=== PATIENT | male | born 1940 | race Caucasian/White ===

== ENCOUNTER 2017-11-02 03:57 | Inpatient (IN) | payer MEDICARE, MEDICAID ==
[2017-11-02] VITALS (7 sets, daily range): BP systolic 108–141; BP diastolic 82–96
[~2017-11-02] VITALS: Ht 175.3 cm; Wt 101.2 kg
--- NOTE | ~2017-11-02 | EKG ---
[place] [address] ELECTROCARDIOGRAM REPORT Name: BRADY OCHOA SR Room: [address] ADM IN [facility]#: [id number] Admission: 11/02/17 Attend Phys: Dino Pires, Discharge: Date of : 44 Report #: [id number] THIS REPORT FOR: //name// [facility] Test Date: 2017-11-03 Test Time: 00:06:58 Pat Name: BRADY OCHOA Department: Room: [address] Gender: M Virtual Reality Specialist: EVE Green : 1940 Requested By: Dino Pires Order Number: [id number] Reading MD: Measurements Intervals [place] Rate: 96 P: 106 MS: 237 QRS: 80 QRSD: 118 T: -1 QT: 367 QTc: 464 Interpretive Statements Sinus rhythm Prolonged MS interval Incomplete right bundle branch block Inferior infarct, recent ST elevation, consider anterolateral injury Compared to ECG 11/02/2017 04:03:46 First degree AV block now present Incomplete right bundle-branch block now present Myocardial infarct finding still present ST (T wave) deviation still present [email or web address] By: 0006 Epiphany Ep[place], [place] /INES
--- NOTE | ~2017-11-02 | EKG ---
[place] [address] ELECTROCARDIOGRAM REPORT Name: BRADY OCHOA Room: [address] ADM IN [facility].#: [id number] Admission: 11/02/17 Attend Phys: Dino Pires, Discharge: Date of : 44 Report #: [id number] THIS REPORT FOR: //name// [facility] Test Date: 2017-11-03 Test Time: 00:06:58 Pat Name: BRADY OCHOA Department: Room: [address] Gender: M Environmental Services Manager: EVE Green : 1940 Requested By: Wu Reinoso Order Number: [id number] Reading MD: Measurements Intervals [place] Rate: 96 P: 106 FL: 237 QRS: 80 QRSD: 118 T: -1 QT: 367 QTc: 464 Interpretive Statements Sinus rhythm Prolonged FL interval Incomplete right bundle branch block Inferior infarct, recent ST elevation, consider anterolateral injury Compared to ECG 11/02/2017 04:03:46 First degree AV block now present Incomplete right bundle-branch block now present Myocardial infarct finding still present ST (T wave) deviation still present [email or web address] By: 0006 Epiphany Epiph[place], [place] /INES
[~2017-11-02 03:57] MED LIST: ACETAMINOPHEN RECTAL; ACETAMINOPHEN-1 EAC1 PO; ADVAIR HFA115 MCG/21 INH; AFRIN15 ML NASAL; AFRIN15 ML NS; AMITRIPTYLINE H25 M2; AMITRIPTYLINE H25 M2 PO; ASPIR 8181 MG PO; ASPIRIN325 PO; ATORVASTATIN CA40 MG PER TUBE; ATORVASTATIN CA40 MG PO; AZITHROMYCIN 2250 MG PO; CARVEDILOL6.25 MG PO; CENTRUM SILVER1 EAC2 PO; CIALIS5 MG PO; CLARITIN10 MG; CLARITIN10 MG PO; COLACE100 MG PO; CYCLOBENZAPRINE5 MG PO; DUONEB 2.5-0.5 M3 ML INH; ENOXAPARIN120 MG/0.1 SUBQ; FERREX 150 PLU1 EAC1 PO; FLAGYL500 MG; FLEXERIL PO; FLONASE 0.05%50 MCG NASAL; GLUCOPHAGE1000 MG PO; HYDROCHLOROTHIA25 M2 PO; HYDROCODONE-AP1 EAC6 PO; INCRUSE ELLI62.5 MCG IH; KETOCONAZOLE60 GM; KETOCONAZOLE60 GM TOP; KLOR-CON 1010 MEQ PO; LASIX 20 MG TAB20 MG PO; LASIX 40 MG TAB40 M2 PO; LEVAQUIN 500 M500 M2 IVPB; LIDODERM 5%1 PATC1 TOP; LIDODERM 5%1 PATC1 TRANSDERM; LIORESAL 10 MG10 MG PO; LISINOPRIL2.5 MG PO; LISINOPRIL20 MG PO; MAGIC MOUTH WASH PO; MEDROLDOSEPACK PO; METFORMIN HCL500 MG PO; METROGEL55 GM TOP; METROGEL60 GM TOP; MILK OF MA2400 MG/10 PO; NEXIUM40 MG PO; NITROGLYCERIN0.4 MG SUBLING; NORCO 5-325 TA1 EACH PO; PLAVIX 75 MG TA75 M1 PO; PREDNISONE 20 M20 M1 PO; PRINIVIL10 MG PO; PROTONIX40 M1 PO; RANITIDINE 150150 M1 PO; ROCEPHIN 11 GM/1001 IV; SINGULAIR 10 MG10 M1 PO; SORINE 80 MG TA80 M1 PO; SPIRIVA INH; SYMBICORT160 MCG/4. INH; SYMBICORT160 MCG/4. PO; TYLENOL325 MG PO; VENTOLIN HFA 1818 GM INH; VOLTAREN GEL 1100 G1 TOP; VOLTAREN GEL 1100 G2 TOP; WELLBUTRIN 100100 MG PO; WELLBUTRIN SR150 MG PO; XARELTO20 MG PO; ZANTAC 150MG T150 MG; ZANTAC 150MG T150 MG PO; ZOLOFT50 M1 PO; ZOLOFT50 MG PO; ZPAK PO; [UNRECOGNIZED DRUG - REMARK] PO
[2017-11-02 04:34] LABS: HEMATOCRIT 40.5 % (42.0-52.0); MCHC 32.2 g/dL (28.0-37.0); MPV 8.3 fl. (7.2-11.1); NUCLEATED RBCS 0 /100WBC; PLATELET COUNT* 243 thou/uL (150-400); RBC 4.82 mil/uL (4.50-6.00); WBC 11.9 thou/uL (4.0-11.0)
--- NOTE | 2017-11-02 04:49 | NUR ---
BLOOD CULTURES DRAWN
[2017-11-02 04:51] LABS: INR 1.1; PROTIME 10.9 Seconds (9.20-11.50)
[2017-11-02 04:55] LABS: ALBUMIN 3.4 g/dL (3.4-5.0); ALKALINE PHOSPHATASE 116 U/L (46-116); ANION GAP 14 mmol/L (7-16); BUN 38 mg/dL (7-18); CALCIUM 9.2 mg/dL (8.5-10.1); CHLORIDE 96 mmol/L (98-107); CO2 26 mmol/L (21-32); CREATININE 2.1 mg/dL (0.6-1.3); GLUCOSE 305 mg/dL (70-99); NT-PRO BRAIN NAT PEPTIDE 3327 pg/mL (<300); POTASSIUM 4.7 mmol/L (3.5-5.1); SGOT 36 U/L (15-37); SGPT 72 U/L (30-65); SODIUM 136 mmol/L (136-145); TOTAL BILIRUBIN 0.5 mg/dL (<0.1-1.0); TOTAL PROTEIN 7.2 g/dL (6.4-8.2); TROPONIN-I LEVEL <0.06 ng/mL (<0.06)
[2017-11-02 05:09] LABS: BE -2.6 mmol/L (-2 to +3); HCO3 20.8 mmol/L (22.0-26.0); PCO2 32.1 mmHg (35.0-45.0); PO2 95.1 mmHg (75.0-100.0); pH 7.429 (7.340-7.450)
[2017-11-02 05:49] LABS: ABSOLUTE LYMPHOCYTES 1.1 thou/uL (0.8-5.3); ABSOLUTE MONOCYTES 0.4 thou/uL (0.0-1.2); ABSOLUTE NEUTROPHILS 10.5 thou/uL (1.6-8.1); ANISOCYTOSIS 2+; ATYPICAL LYMPHS 1 %; MACROCYTES 1+; OVALOCYTES 1+; PLATELET ESTIMATE ADEQUATE; POLYCHROMASIA 1+
--- NOTE | 2017-11-02 11:39 | EKG ---
[place] [address] ELECTROCARDIOGRAM REPORT Name: BRADY OCHOA Room: [address] ADM IN [facility]#: [id number] Admission: 11/02/17 Attend Phys: Dino Pires, Discharge: Date of : 44 Report #: [id number] THIS REPORT FOR: //name// [facility] ED Test Date: 2017-11-01 Test Time: 10:09:24 Pat Name: BRADY OCHOA Department: Room: [facility] Gender: M Reservationist: MS : 1940 Requested By: Gonzalez Vasquez Order Number: [id number] MD: Lan Stout Measurements Intervals [place] Rate: 111 P: AL: QRS: 66 QRSD: 102 T: 34 QT: 322 QTc: 438 Interpretive Statements nsr 1 avb Low voltage, precordial leads RSR' in V1 or V2, right VCD or RVH ST elevation, consider inferior injury Compared to ECG 09/26/2017 08:31:24 RSR' in V1 or V2 now present ST (T wave) deviation now present Myocardial infarct finding now present Sinus rhythm no longer present Atrial premature complex(es) no longer present Electronically Signed On 11-02-2017 11:39:23 PIPING SUPERVISOR by Lan Stout [email or web address] <ELECTRONICALLY SIGNED> By: Lan Stout MD, [facility] 11/02/17 1139 1009 1009 Lan Stout MD, [facility] /EPI
--- NOTE | 2017-11-02 11:42 | EKG ---
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: 99 : 1940 Requested By: Alejandra Barney Order Number: [id number] MD: Lan Stout Measurements Intervals [place] Rate: 98 P: [place]: QRS: 77 QRSD: 106 T: 45 QT: 368 QTc: 470 Interpretive Statements nsr pacs Low voltage, precordial leads RSR' in V1 or V2, probably normal variant ST elevation, consider inferior injury Borderline prolonged QT interval Compared to ECG 09/26/2017 08:31:24 RSR' in V1 or V2 now present ST (T wave) deviation now present Myocardial infarct finding now present Sinus rhythm no longer present Atrial premature complex(es) no longer present Electronically Signed On 11-02-2017 11:42:14 BRAIN WAVE TECHNICIAN by Lan Stout [email or web address] <ELECTRONICALLY SIGNED> By: Lan Stout MD, [facility] 11/02/17 1142 2 2 Lan Stout MD, [facility] /EPI
[2017-11-02 12:04] LABS: URINE BILIRUBIN NEGATIVE (Negative); URINE BLOOD NEGATIVE (Negative); URINE CLARITY CLEAR; URINE COLOR YELLOW; URINE GLUCOSE-RANDOM 1+ (Negative); URINE KETONES TRACE (Negative); URINE LEUKOCYTES-REFLEX NEGATIVE (Negative); URINE NITRITE-REFLEX NEGATIVE (Negative); URINE PROTEIN NEGATIVE (Negative); URINE SPECIFIC GRAVITY 1.025 (1.005-1.030); URINE UROBILINOGEN 0.2 E.U./dl (0.2-1.0)
--- NOTE | 2017-11-02 13:13 | NUR ---
ASSUMED PT CARE AT 0700 PT IS ALERT AND ORIENTED X 4 PT DENIES PAIN PT IS NOT A FALL RISK, OBTAINED URINE FOR UA, PT ON 2L STATING HAVING DIFFICULTY BREATHING PT IS SAT ABOVE 90 CALLED RT FOR BREATHING TX CALLED DR KHAN TO RESTART HOME MEDS AND NOTIFIED ABOUT PT DIFFICULTY BREATHING STATED PT IS ON PO LASIX OBTAINED ORDER FOR IV LASIX AND TO STOP FLUIDS PT HAS HISTORY OF CHF PT BLOOD SUGAR IS ABOVE 300 OBTAINED ORDER FOR LOW DOSE SLIDING SCALE INSULIN ASKED ABOUT PO LASIX PHYSICIAN DOES NOT WANT TO ORDER FOR NOW AND DOES NOT WANT TO ORDER METFORMIN USE INSULIN TO CONTROL BLOOD SUGARS, GAVE PT LASIX ALSO ASKED DR KHAN ABOUT GIVING XERELTO ASPIRIN AND PLAVIX TOGETHER PT HAS ALL THREE ORDERED FOR HOME MEDS PHYSICIAN STATED TO GIVE ALL THREE, PT IS ST ON MONITOR, WILL CONTINUE TO MONITOR
[2017-11-03] VITALS (24 sets, daily range): BP systolic 10–137; BP diastolic 16–96
[2017-11-03 00:21] LABS: HEMATOCRIT 44.1 % (42.0-52.0); MCH 26.9 pg (26.0-34.0); MCHC 31.7 g/dL (28.0-37.0); MCV 84.7 fL (80.0-100.0); MPV 8.3 fl. (7.2-11.1); RBC 5.2 mil/uL (4.50-6.00); RDW-CV 18.4 % (10.5-14.5); WBC 18.8 thou/uL (4.0-11.0)
[2017-11-03 00:46] LABS: CALCIUM 8.5 mg/dL (8.5-10.1); CREATININE 2.3 mg/dL (0.6-1.3); POTASSIUM 5.6 mmol/L (3.5-5.1)
--- NOTE | 2017-11-03 02:32 | NUR ---
ASSUMED CARE OF PT AT 1900. PT IS ALERT AND ORIENTED. BECK. PT WAS VERY SOA AND RESPIRATIONS WHERE IN THE 30'S AT THE BEGINNING OF THIS SHIFT. PT WAS ALSO VERY DIAPHORETIC. IT WAS FELT THAT PT WAS IN FLUID OVERLOAD. PT WAS GIVEN IV LASIX 60 MG. PT REPORTED SOME IMPROVEMENT BUT NOT ENOUGH. PT CONTINUED TO BE TACHYPNEIC AND DIAPHORETIC. PT ALSO STATED THAT HE CANNOT TOLERATE NOT BEING ABLE TO BREATHE FOR MUCH LONGER. PT WAS THEN STARTED ON BIPAP 12/6, 14, 40% AND GIVEN ANOTHER 60 MG OF IV LASIX. PT IS TOLERATING THE BIPAP WELL AND REPORTS FEELING MUCH MORE COMFORT AND EASE OF BREATHING WITH HIS BIPAP. PTS RR HAS CAME DOWN TO THE LOWER 20'S. PT IS NO LONGER DIAPHORETIC AND HE HAS FALLEN ASLEEP. HE IS STILL NOT URINATING AND IS POSITIVE FOR SEPSIS. DR GARCIA NOTIFIED. AT THIS TIME THERE ARE NO FURTHER ORDERS, FOR PT WILL NOT BE ABLE TO HANDLE A FLUID BOLUS. PT IS IN SINUS RYTHM ON THE TELEMETRY AND RESTING COMFORTABLY IN BED.
[2017-11-03 09:47] LABS: BE -9.8 mmol/L (-2 to +3); PCO2 35.3 mmHg (35.0-45.0); PO2 71.9 mmHg (75.0-100.0)
[2017-11-03 09:54] LABS: pH 7.275 (7.340-7.450)
--- NOTE | 2017-11-03 10:28 | NUR ---
ASSESSMENT COMPLETED THIS AM. PATIENT SITTING UP IN BED THIS AM. PATIENT WENT DOWN TO ULTRA SOUND THIS AM. PATIENT CAME BACK TO ROOM. PATIENT HAS LOW O2 SAT, PLACED ON BIPAP AND DR LINO NOTIFIED OF PATIENTS CONDITION. ORDERS RECIEVED. PATIENT TRANSFERED TO ICU ROOM 8.
[2017-11-03 11:32] LABS: HEMATOCRIT 41.5 % (42.0-52.0); HEMOGLOBIN 12.9 gm/dL (14.0-18.0); MCHC 31.2 g/dL (28.0-37.0); MCV 86.7 fL (80.0-100.0); MPV 8.2 fl. (7.2-11.1); RBC 4.79 mil/uL (4.50-6.00); RDW-CV 19.6 % (10.5-14.5); WBC 19.6 thou/uL (4.0-11.0)
--- NOTE | 2017-11-03 11:45 | NUR ---
RE: PHARMACY TO MANAGE VANCOMYCIN (SEPSIS) LABS: KH=128.3CM, EM=859.4KG, WBC=18.8, SCR=2.3, CRCL=33.5, TMAX=36.9. LOADING DOSE OF 2GM ORDERED AND WILL CONTINUE 0.5GM Q12 HOURS. TROUGH SCHEDULED FOR 11/04/17 AT 2130, WITH A GOAL OF 15-20MCG/ML. PHARMACY WILL CONTINUE TO FOLLOW. THANK YOU.
[2017-11-03 11:53] LABS: POTASSIUM 5.6 mmol/L (3.5-5.1)
[2017-11-03 11:54] LABS: CREATININE 3.4 mg/dL (0.6-1.3)
[2017-11-03 12:27] LABS: HCO3 13.3 mmol/L (22.0-26.0); PCO2 28.5 mmHg (35.0-45.0); PO2 270.8 mmHg (75.0-100.0); pH 7.286 (7.340-7.450)
[2017-11-03 12:28] LABS: BE -11.8 mmol/L (-2 to +3)
--- NOTE | 2017-11-03 12:49 | NUR ---
PATIENT TRANSFERED TO THE ICU FROM TELEMETRY AT 1012. PATIENT LETHARGIC, HYPOTENSIVE, AND BRADYCARDIC UPON ARRIVING. DR MIRELES IN THE ROOM TO PLACE CENTRAL LINE. CODE INITIATED AT 1032. REFER TO CODE SHEET. PATIENT INTUBATED. ON LEVO FOR BLOOD PRESSURE SUPPORT, CURRENTLY MAXED OUT WITH PRESSURE OF 90/50. PULSES WEAK, BUT PRESENT. STAT LABS COMPLETED AND CALLED TO PHYSICIAN. ABG COMPLETED AND CALLED TO DR ANDREW. NO VENT SETTING CHANGES AT THIS TIME: CURRENT SETTINGS: AC 16, TV 600, PEEP 5, FIO2 80%. RT TITRATING DOWN O2. DR LINO INITIATED SEPSIS PROTOCOL. BOLUSES INFUSING. DR LINO ENTERING NEW ORDERS AT THIS TIME. NEPHROLOGY CALLED DURING CODE, HAS NOT CALLED BACK NOW. DEEP, SIGNIFICANT OTHER, UPDATED AND ALLOWED TO COME INTO THE ROOM TO SEE PATIENT. UPDATED ON CURRENT PLANS AND AGREES WITH PLAN.
--- NOTE | 2017-11-03 14:30 | NUR ---
PATIENT TEMP POST CODE 95.5. WARM BLANKETS PLACED ON PATIENT. TEMPERATURE INCREASED TO 96.0. WARM BLANKETS AND TRANG HUGGER IN PLACE NOW.
--- NOTE | 2017-11-03 14:33 | 2DMMODE ---
[place] [address] 2 D/M-MODE ECHOCARDIOGRAM Name: BRADY OCHOA SR Room: [address] ADM IN [facility]#: [id number] Admission: 11/02/17 Attend Phys: Dino Mar Discharge: Date of : 44 Date of Service: 11/03/17 1433 Report #: [id number] THIS REPORT FOR: //name// APPROVED REPORT Study performed: 11/03/2017 10:27:34 EXAM: Comprehensive 2D, Doppler, and color-flow Echocardiogram Patient Location: In-Patient Room #: [facility] [place] Status: routine BSA: 2.22 HR: 74 bpm BP: 105/45 mmHg Rhythm: Atrial Fibrillation Other Information Study Quality: Good Indications Congestive Heart Failure 2D Dimensions LVEF(%): 45.42 (>50%) IVSd: 15.35 (7-11mm) LVOT Diam: 19.14 (18-24mm) LVDd: 55.11 mm PWd: 12.74 (7-11mm) Ascending Ao: 39.85 (22-36mm) LVDs: 42.51 (25-40mm) Aortic Root: 35.36 mm Walters's LVEF: 45.42 % Volumes Left Atrial Volume (Systole) LA ESV Index: 33.80 mL/m2 Aortic Valve AoV Peak Héctor.: 0.94 m/s AO Peak Gr.: 3.54 mmHg LVOT Max P.97 mmHg AO Mean Gr.: 2.15 mmHg LVOT Mean P.94 mmHg LVOT Max V: 0.70 m/s AO V2 VTI: 12.92 cm LVOT Mean V: 0.44 m/s KARIN (VTI): 2.32 cm2 LVOT V1 VTI: 10.40 cm Mitral Valve MV Decel. Time: 204.12 [place] [address] 2 D/M-MODE ECHOCARDIOGRAM Name: BRADY OCHOA SR Room: [address] IN [facility]#: [id number] Admission: 11/02/17 Attend Phys: Dino Mar Discharge: Date of : 44 Date of Service: 11/03/17 1433 Report #: [id number] MV PHT: 59.20 ms MVA (PHT): 3.72 cm2 TDI Medial E' Héctor.: 0.07 m/s Lateral E' Héctor.: 0.06 m/s Pulmonary Valve PV Peak Héctor.: 0.71 m/s PV Peak Gr.: 2.01 mmHg Tricuspid Valve TR Peak Gr.: 24.79 mmHg RVSP: 29.00 mmHg Left Ventricle The left ventricle is normal size. There is apical hypokinesis Mild concentric left ventricular hypertrophy. Left ventricular systolic function is moderately decreased. LVEF is 35-40%. This study is not technically sufficient to allow evaluation of the LV diastolic function due to atrial fibrillation. Right Ventricle The right ventricle is normal size. The right ventricular systolic function is normal. Atria Left atrium is borderline dilated. The right atrium size is normal. Aortic Valve Mild aortic valve sclerosis. No aortic regurgitation is present. There is no aortic valvular stenosis. Mitral Valve The mitral valve is normal in structure. Trace mitral regurgitation. No evidence of mitral valve stenosis. Tricuspid Valve The tricuspid valve is normal in structure. Trace tricuspid regurgitation. The RVSP is ____29___ mmHg. 29 Pulmonic Valve The pulmonary valve is normal in structure. There is no pulmonic valvular regurgitation. Great Vessels The aortic root is normal in size. [place] [address] 2 D/M-MODE ECHOCARDIOGRAM Name: BRADY OCHOA SR Room: [address]#: [id number] Admission: 11/02/17 Attend Phys: Dino Mar Discharge: Date of : 44 Date of Service: 11/03/17 1433 Report #: [id number] collapses with >50% inspiration Pericardium There is no pericardial effusion. <Conclusion> The left ventricle is normal size. Mild concentric left ventricular hypertrophy. Left ventricular systolic function is moderately decreased. LVEF is 35-40%. This study is not technically sufficient to allow evaluation of the LV diastolic function due to atrial fibrillation. The right ventricle is normal size. Left atrium is borderline dilated. Mild aortic valve sclerosis. No aortic regurgitation is present. There is no aortic valvular stenosis. The mitral valve is normal in structure. Trace mitral regurgitation. Trace tricuspid regurgitation. The RVSP is ____29___ mmHg. IVC is normal in size and collapses with >50% inspiration There is no pericardial effusion. There is apical hypokinesis <ELECTRONICALLY SIGNED> By: Cristóbal Shook MD, FACC 11/03/17 1433 1433 143 Cristóbal Shook MD, FACC /INF
--- NOTE | 2017-11-03 15:40 | EKG ---
[place] [address] ELECTROCARDIOGRAM REPORT Name: BRADY OCHOA SR Room: [address] IN [facility]#: [id number] Admission: 11/02/17 Attend Phys: Dino Pires, Discharge: Date of : 44 Report #: [id number] THIS REPORT FOR: //name// [facility] Test Date: 2017-11-03 Test Time: 00:06:03 Pat Name: BRADY OCHOA Department: Room: [facility] Gender: M Manager Specialty: EVE Green : 1940 Requested By: Vipin Nichols Order Number: [id number] MD: Cristóbal Shook Measurements Intervals [place] Rate: 97 P: 90 OK: 201 QRS: 82 QRSD: 116 T: 12 QT: 387 QTc: 492 Interpretive Statements Supraventricular rhythm Incomplete right bundle branch block Low voltage, precordial leads Consider anterior infarct Compared to ECG 11/02/2017 04:03:46 Myocardial infarct finding still present Electronically Signed On 11-03-2017 15:40:30 NOTCHING PRESS OPERATOR by Cristóbal Shook [email or web address] <ELECTRONICALLY SIGNED> By: Cristóbal Shook MD, [facility] 11/03/17 1540 0006 000 Cristóbal Shook MD, [facility] /EPI
[2017-11-03 16:07] LABS: BE -12.1 mmol/L (-2 to +3); HCO3 13.2 mmol/L (22.0-26.0); PCO2 29.1 mmHg (35.0-45.0)
[2017-11-03 16:09] LABS: PO2 201.3 mmHg (75.0-100.0); pH 7.275 (7.340-7.450)
[2017-11-03 16:13] LABS: CALCIUM 7.3 mg/dL (8.5-10.1); CREATININE 3.5 mg/dL (0.6-1.3); POTASSIUM 5.5 mmol/L (3.5-5.1)
--- NOTE | 2017-11-03 18:20 | NUR ---
PATIENT SLOWLY PROGRESSING TOWARDS GOALS. REMAINS SEDATED ON VENTILATOR. RESPONSIVE TO PAIN. SEDATION TITRATED DOWN BRIEFLY AND PATIENT BECAME RESTLESS, SO TITRATED BACK UP TO 12 ML/HR. TRACING SINUS ARRHYTHMIA/TACH ON MONITOR AT THIS TIME, INTERMITTENTLY A-FIB, WHICH PATIENT HAS A HISTORY OF. BLOOD PRESSURE SUPPORTED ON 30 MCG/MIN OF LEVOPHED. UNABLE TO TITRATE DOWN THROUGHOUT SHIFT. ECHO COMPLETED TODAY WITH RESULTING LVEF OF 35-40%. RIGHT JUGULAR CENTRAL LINE IN PLACE, DRESSING CHANGED X1 PATIENT IS ON BLOOD THINNERS AND HAS COPIOUS AMOUNTS OF BLOODY DRAINAGE. NOW CLEAN/DRY/INTACT. ALL PULSES WEAK, DOPPLER NEEDED FOR PERIPHERALS. ABLE TO PALPATE JUGULAR PULSE. 3L NS BOLUS GIVEN FOR SEPSIS PROTOCOL. VANC LOADING DOSE ADMINISTERED PER ORDERS. LUNGS REMAIN DIMINISHED, BUT CLEAR TO ASCULATATION. OG REMAINS AT 60 TO LIS. ET REMAINS AT 21 AT THE LIP. ACCUCHECKS COMPLETED. REFER TO CHARTING AND INSULIN DOSAGE. SKIN REMAINS INTACT. BRUISING NOTED. LACTIC TRENDING DOWN, BUT REMAINS CRITICAL. HOSPITALIST AWARE. NEPHROLOGY CALLED BACK FOR CONSULT AND CAME TO SEE PATIENT. PATIENT HAS VANN TO DEPENDENT DRAINAGE. ONLY 20 ML OF OUTPUT NOTED FOR 4,000 INPUT. K+ REMAINS CONSTANT AT 5.5. PER NEPHROLOGY PATIENT MAY NEED DIALYSIS. ORDERS FOR REPEAT CMP AT 1999, AND FOR NURSE TO CALL RIGGING AND CONTROLS AIRCRAFT MECHANIC NEPHROLOGY WITH THE RESULTS TO MAKE DECISION. SIGNIFICANT OTHER, DEEP, PRESENT THROUGHOUT SHIFT. UPDATED ON PLAN OF CARE AND REMAINS IN AGREEMENT WITH PLAN.
[2017-11-03 20:51] LABS: ALBUMIN 2.8 g/dL (3.4-5.0); ALKALINE PHOSPHATASE 119 U/L (46-116); ANION GAP 20 mmol/L (7-16); BUN 87 mg/dL (7-18); CALCIUM 6.6 mg/dL (8.5-10.1); CHLORIDE 99 mmol/L (98-107); CO2 19 mmol/L (21-32); CREATININE 3.7 mg/dL (0.6-1.3); GLUCOSE 227 mg/dL (70-99); POTASSIUM 5.1 mmol/L (3.5-5.1); SODIUM 138 mmol/L (136-145); TOTAL BILIRUBIN 2.8 mg/dL (<0.1-1.0); TOTAL PROTEIN 5.6 g/dL (6.4-8.2)
[2017-11-03 21:25] LABS: SGPT 15749 U/L (30-65)
[2017-11-03 21:26] LABS: SGOT > 20000 U/L (15-37)
[2017-11-04] VITALS (31 sets, daily range): BP systolic 85–143; BP diastolic 37–82
[2017-11-04 03:36] LABS: ABSOLUTE LYMPHOCYTES 0.4 thou/uL (0.8-5.3); ABSOLUTE MONOCYTES 0.8 thou/uL (0.0-1.2); ABSOLUTE NEUTROPHILS 16.4 thou/uL (1.6-8.1); BASOPHILS 0.1 %; EOSINOPHILS 0.1 %; HEMATOCRIT 39.1 % (42.0-52.0); HEMOGLOBIN 12.4 gm/dL (14.0-18.0); MCHC 31.6 g/dL (28.0-37.0); MCV 85.3 fL (80.0-100.0); MONOCYTES 4.5 %; MPV 9.5 fl. (7.2-11.1); NUCLEATED RBCS 1 /100WBC; PLATELET COUNT* 181 thou/uL (150-400); POLYS 93.3 %; RBC 4.58 mil/uL (4.50-6.00); WBC 17.6 thou/uL (4.0-11.0)
[2017-11-04 04:03] LABS: ALBUMIN 2.9 g/dL (3.4-5.0); ALKALINE PHOSPHATASE 138 U/L (46-116); ANION GAP 19 mmol/L (7-16); BUN 98 mg/dL (7-18); CHLORIDE 98 mmol/L (98-107); CO2 19 mmol/L (21-32); CREATININE 4.5 mg/dL (0.6-1.3); GLUCOSE 282 mg/dL (70-99); MAGNESIUM 1.7 mg/dL (1.8-2.4); POTASSIUM 5.4 mmol/L (3.5-5.1); SODIUM 136 mmol/L (136-145); TOTAL BILIRUBIN 2.8 mg/dL (<0.1-1.0); TOTAL PROTEIN 5.7 g/dL (6.4-8.2)
[2017-11-04 04:25] LABS: CALCIUM 6.1 mg/dL (8.5-10.1)
[2017-11-04 05:07] LABS: SGOT > 20000 U/L (15-37); SGPT 16121 U/L (30-65)
[2017-11-04 05:10] LABS: GLYCOHEMOGLOBIN (HGB A1C) 7.8 % (4.8-5.6)
[2017-11-04 05:16] LABS: PREALBUMIN 26.8 mg/dL (18.0-35.7)
[2017-11-04 05:21] LABS: BE -9.8 mmol/L (-2 to +3); HCO3 15.8 mmol/L (22.0-26.0); PCO2 34.1 mmHg (35.0-45.0); PO2 121.1 mmHg (75.0-100.0)
[2017-11-04 05:22] LABS: pH 7.285 (7.340-7.450)
--- NOTE | 2017-11-04 05:58 | NUR ---
CALLED ABNORMAL LAB VALUES AND ABG RESULTS TO DR MAC. RECIEVED ORDER TO TALK WITH FAMILY ABOUT HEMODIALYSIS. IF FAMILY WANTS TO DIALYZE THEN CONSULT ANESTHESIA FOR TEMPORARY DIALYSIS CATHETER.
--- NOTE | 2017-11-04 08:22 | NUR ---
PT REMAINS SEDATED ON VENTILATOR, FENTANYL AND VERSED GTTS INFUSING ORDERED. LEVOPHED TITRATION CONTINUES AND MAP HAS REMAINED >65. CRITICAL ABGS AND OTHER CRITICAL LABS CALLED TO PULM AND RENAL THIS AM. PER DR LEONE, DISCUSSED WITH PTS SIGNIFICANT OTHER PLACEMENT OF DIALYSIS CATHETER AND SHE CONFIRMED THAT THIS IS HER WISH. ANESTHESIA CONSULTED FOR PLACEMENT. SPOKE TO DAMEON FURNACE TENDER, WHO CONFIRMED HE WILL BE HERE POST PLACEMENT TO INITIATED DIALYSIS. PT HAS BEEN TURNED Q2HR THROUGHOUT THE SHIFT.
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
[2017-11-04 11:31] LABS: PROTIME 28.5 Seconds (9.20-11.50)
--- NOTE | 2017-11-04 11:53 | NUR ---
CRRT STARTED AT THIS TIME
[2017-11-04 15:44] LABS: HEMOGLOBIN 12.3 gm/dL (14.0-18.0); MCV 85.1 fL (80.0-100.0); MPV 9.7 fl. (7.2-11.1)
[2017-11-04 15:46] LABS: HEMATOCRIT 38.3 % (42.0-52.0); MCH 27.3 pg (26.0-34.0); MCHC 32.1 g/dL (28.0-37.0); RBC 4.5 mil/uL (4.50-6.00); RDW-CV 19.2 % (10.5-14.5); WBC 17.5 thou/uL (4.0-11.0)
[2017-11-04 16:01] LABS: CALCIUM 6.4 mg/dL (8.5-10.1); CREATININE 4.6 mg/dL (0.6-1.3); MAGNESIUM 1.9 mg/dL (1.8-2.4); PHOSPHORUS* 8.2 mg/dL (2.5-4.9); POTASSIUM 4.7 mmol/L (3.5-5.1)
--- NOTE | 2017-11-04 17:00 | EKG ---
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29 : 1940 Requested By: Wu Reinoso Order Number: [id number] Etienne MD: Nato Trinidad Measurements Intervals Breeding Rate: 87 P: AL: QRS: 83 QRSD: 116 T: 51 QT: 454 QTc: 547 Interpretive Statements Atrial flutter Incomplete right bundle branch block Low voltage, precordial leads Compared to ECG 11/03/2017 00:06:03 Atrial flutter present Myocardial infarct finding no longer present Electronically Signed On 11-04-2017 16:59:48 MARKETING ASSOCIATE by Nato Trinidad [email or web address] <ELECTRONICALLY SIGNED> By: Nato Trinidad MD, FACC 11/04/17 1659 1205 1205 Nato Trinidad MD, FAC /EPI
--- NOTE | 2017-11-04 17:05 | EKG ---
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: [facility] : 1940 Requested By: Cristóbal Shook Order Number: [id number] Etienne MD: Nato Trinidad Measurements Intervals [place] Rate: 57 P: 51 KS: 310 QRS: 93 QRSD: 108 T: 127 QT: 525 QTc: 512 Interpretive Statements Sinus rhythm Prolonged KS interval Right axis deviation Low voltage, precordial leads Nonspecific T-wave changes Prolonged QT interval Compared to ECG 11/03/2017 00:06:03 First degree AV block now present Right-axis deviation now present Prolonged QT interval now present Supraventricular rhythm no longer present Incomplete right bundle-branch block no longer present Myocardial infarct finding no longer present Electronically Signed On 11-04-2017 17:05:22 SALON LEADER by Nato Trinidad [email or web address] <ELECTRONICALLY SIGNED> By: Nato Trinidad MD, FACC 11/04/17 1705 1016 1016 Nato Trinidad MD, FACC /EPI
--- NOTE | 2017-11-04 18:25 | NUR ---
PATIENT HAS REMAINED FAIRLY STABLE ON CRRT SINCE NOON. ABLE TO WEAN SOME OF LEVO. STARTED TUBE FEEDING PER RPG PROGRAMMER AND ZOIE RECOMENDATIONS. PATIENT HAS BEEN SINUS KARY FOR MOST OF THE DAY WITH BUNDLE. SEBASTIÁN UPDATED. FAMILY UPDATED AND HAVE BEEN AT BEDSIDE MOST OF THE DAY. NO APPARENT PAIN. BED IN LOWEST POSITION, CALL LIGHT IN REACH, BED ALARM ON, WILL CONTINUE TO MONITOR.
[2017-11-04 18:28] LABS: BE -8.6 mmol/L (-2 to +3); HCO3 16.5 mmol/L (22.0-26.0); PCO2 33.4 mmHg (35.0-45.0); pH 7.312 (7.340-7.450)
[2017-11-04 20:37] LABS: HEMATOCRIT 31.6 % (42.0-52.0); MCH 27.8 pg (26.0-34.0); MCHC 32.5 g/dL (28.0-37.0); MCV 85.5 fL (80.0-100.0); MPV 9.6 fl. (7.2-11.1); RBC 3.7 mil/uL (4.50-6.00); WBC 12.3 thou/uL (4.0-11.0)
[2017-11-04 20:40] LABS: HEMOGLOBIN 10.3 gm/dL (14.0-18.0)
[2017-11-04 20:44] LABS: MAGNESIUM 1.3 mg/dL (1.8-2.4); PHOSPHORUS* 5.7 mg/dL (2.5-4.9)
[2017-11-04 20:45] LABS: CREATININE 3.1 mg/dL (0.6-1.3); POTASSIUM 3.5 mmol/L (3.5-5.1)
[2017-11-04 20:55] LABS: CALCIUM 4.6 mg/dL (8.5-10.1)
[2017-11-05] VITALS (20 sets, daily range): BP systolic 04–121; BP diastolic 47–74
[2017-11-05 01:23] LABS: MPV 10.1 fl. (7.2-11.1)
[2017-11-05 01:25] LABS: HEMATOCRIT 39.5 % (42.0-52.0); MCH 26.7 pg (26.0-34.0); MCHC 31.7 g/dL (28.0-37.0); MCV 84.4 fL (80.0-100.0); RBC 4.68 mil/uL (4.50-6.00); RDW-CV 19.4 % (10.5-14.5)
[2017-11-05 01:30] LABS: HEMOGLOBIN 12.5 gm/dL (14.0-18.0)
[2017-11-05 01:32] LABS: CALCIUM 6.4 mg/dL (8.5-10.1); MAGNESIUM 1.8 mg/dL (1.8-2.4); PHOSPHORUS* 8.7 mg/dL (2.5-4.9)
[2017-11-05 01:38] LABS: CREATININE 4.6 mg/dL (0.6-1.3); POTASSIUM 5.2 mmol/L (3.5-5.1)
[2017-11-05 05:36] LABS: ABSOLUTE LYMPHOCYTES 0.2 thou/uL (0.8-5.3); ABSOLUTE MONOCYTES 0.6 thou/uL (0.0-1.2); ABSOLUTE NEUTROPHILS 10.7 thou/uL (1.6-8.1); EOSINOPHILS 0.1 %; HEMATOCRIT 30.1 % (42.0-52.0); MCH 27.5 pg (26.0-34.0); MCHC 32.1 g/dL (28.0-37.0); MCV 85.8 fL (80.0-100.0); MONOCYTES 5.1 %; MPV 9.5 fl. (7.2-11.1); NUCLEATED RBCS 5 /100WBC; PLATELET COUNT* 79 thou/uL (150-400); POLYS 92.8 %; RBC 3.51 mil/uL (4.50-6.00); RDW-CV 19.6 % (10.5-14.5); WBC 11.5 thou/uL (4.0-11.0)
--- NOTE | 2017-11-05 05:38 | NUR ---
PT BECAME APNIC. NURSE AND RT BEGAN TO BAG PATIENT. PT'S O2 NORMALIZED. PT WAS PLACED BACK ON VENT. PTS PEEK PRESSURES INCREASED CAUSING RT TO INITIATE BAGGING AGAIN. RT WAS UNABLE TO BAG THE PT BECAUSE OF PRESSURE IN HIS ABDOMEN. OG WAS IMMIDIATELY TURNED TO LOW INTERMITTEN SUCTION. PHYSICIAN WAS CALLED. CXR AND KUB WAS CALLED STAT. PHYSICIAN ORDERED A PARALYTIC TO ASSIST WITH BAGGING THE PT. PT WAS ABLE TO BE PLACED BACK ON THE VENT.
[2017-11-05 05:46] LABS: HEMOGLOBIN 9.7 gm/dL (14.0-18.0)
[2017-11-05 07:44] LABS: RDW-CV 19.4 % (10.5-14.5)
[2017-11-05 07:45] LABS: HEMATOCRIT 39.3 % (42.0-52.0); MCH 27.1 pg (26.0-34.0); MCHC 31.9 g/dL (28.0-37.0); RBC 4.62 mil/uL (4.50-6.00); WBC 15.3 thou/uL (4.0-11.0)
[2017-11-05 07:46] LABS: HEMOGLOBIN 12.5 gm/dL (14.0-18.0)
[2017-11-05 07:49] LABS: HEMATOCRIT 39.3 % (42.0-52.0); HEMOGLOBIN 12.5 gm/dL (14.0-18.0); MCH 27.1 pg (26.0-34.0); MCHC 31.9 g/dL (28.0-37.0); PLATELET COUNT* 103 thou/uL (150-400); RBC 4.62 mil/uL (4.50-6.00); RDW-CV 19.4 % (10.5-14.5); WBC 15.3 thou/uL (4.0-11.0)
[2017-11-05 07:53] LABS: CALCIUM 6.2 mg/dL (8.5-10.1); CREATININE 5.2 mg/dL (0.6-1.3); MAGNESIUM 1.9 mg/dL (1.8-2.4); POTASSIUM 5.4 mmol/L (3.5-5.1)
--- NOTE | 2017-11-05 08:30 | NUR ---
RESTARTED CRRT PER DR ORDERS.
[2017-11-05 08:36] LABS: ALBUMIN 2.7 g/dL (3.4-5.0); CALCIUM 6.1 mg/dL (8.5-10.1); CREATININE 5.2 mg/dL (0.6-1.3); MAGNESIUM 1.8 mg/dL (1.8-2.4); POTASSIUM 5.4 mmol/L (3.5-5.1); TOTAL BILIRUBIN 3.6 mg/dL (<0.1-1.0); TOTAL PROTEIN 5.3 g/dL (6.4-8.2)
[2017-11-05 08:38] LABS: TROPONIN-I LEVEL 3.65 ng/mL (<0.06)
[2017-11-05 08:40] LABS: ABSOLUTE LYMPHOCYTES 0.5 thou/uL (0.8-5.3); ABSOLUTE MONOCYTES 0.3 thou/uL (0.0-1.2); ABSOLUTE NEUTROPHILS 14.5 thou/uL (1.6-8.1)
[2017-11-05 08:41] LABS: ANISOCYTOSIS 1+; PLATELET ESTIMATE DECREASED; POLYCHROMASIA 1+
[2017-11-05 09:27] LABS: DIRECT BILIRUBIN 2.5 mg/dL (<0.1-0.3); TOTAL BILIRUBIN 3.6 mg/dL (<0.1-1.0)
[2017-11-05 09:28] LABS: ALBUMIN 2.7 g/dL (3.4-5.0); TOTAL PROTEIN 5.3 g/dL (6.4-8.2)
[2017-11-05 10:25] LABS: INR 5.6
[2017-11-05 11:43] LABS: BE -7.1 mmol/L (-2 to +3); HCO3 17.7 mmol/L (22.0-26.0); PCO2 33.4 mmHg (35.0-45.0); pH 7.341 (7.340-7.450)
[2017-11-05 11:46] LABS: PO2 129.5 mmHg (75.0-100.0)
[2017-11-05 12:06] LABS: HEPATITIS B SURFACE AG Negative (Negative)
--- NOTE | 2017-11-05 12:21 | CON ---
[address] [address] CONSULTATION Name: BRADY OCHOA SR Room: [address] IN .R.#: [id number] Admission: 11/02/17 Attend Phys: Dino Pires, Discharge: Date of : 42 Report #: [id number] THIS REPORT FOR: //name// CC: Sami Pires DATE OF SERVICE: 11/04/2017 INFECTIOUS DISEASE CONSULTATION ATTENDING PHYSICIAN: Dino Pires MD REASON FOR EVALUATION: Respiratory failure, complication of pneumonitis, probably multifactorial, also nosocomial related fevers, shock liver, and renal failure, now confirmed to have a positive blood culture with Gram-positive cocci 1 out of 2. HISTORY OF PRESENT ILLNESS: The patient is a 77-year-old with known history of cardiac disease, diabetes mellitus, COPD, who was admitted with initial complaints of progressive dyspnea over the course of a few days. Initial evaluation was somewhat unrevealing. Chest x-ray showed no acute process. ABGs were fairly unremarkable. Did have renal failure. He was admitted, placed on antibiotics consisting of doxycycline and given vancomycin and levofloxacin as well based on his renal dysfunction; however, the course of the period was found to have persistent hyperlacticacidemia. Repeat chest x-ray showed some degree of infiltrates. He had worsening respiratory failure, requiring BiPAP. He was ultimately transferred to Intensive Care Unit where he experienced cardiopulmonary arrest. He was resuscitated including compressions and chemical interventions. He is now seen post code on the [facility]. He is not responsive. He is febrile at this point and started on broad spectrum therapy, should be continued on broad spectrum therapy. On 11/02/2017, blood cultures were sterile 2 out of 2. Blood culture on the 11/03/2017 was positive with Gram-positive cocci. ALLERGIES: PENICILLINS, GABAPENTIN. MEDICINES: Include levofloxacin, pantoprazole, vancomycin, p.r.n. analgesics, antiemetics, doxycycline, aspirin, sertraline, bupropion, budesonide, sotalol, atorvastatin, clopidogrel. PAST MEDICAL HISTORY: As described above, hypertension, COPD, known arterial cardiac disease, atrial fibrillation, diabetes. SOCIAL HISTORY: Former smoker. No ethanol. FAMILY HISTORY: [place] [address] CONSULTATION Name: BRADY OCHOA SR Room: [address]#: [id number] Admission: 11/02/17 Attend Phys: Dino Pires, Discharge: Date of : 42 Report #: [id number] REVIEW OF SYSTEMS: Not obtainable. PHYSICAL EXAMINATION: GENERAL: He is lying supine. He is intubated. He has an OG tube. He has got a central line. He has got a Richter catheter without output. He is not responsive at this point, in vmmy-dl-ijiojijs distress. VITAL SIGNS: Temperature 100.6, pulse 79, respirations 13, blood pressure 116/39. SKIN: Warm. No rashes. HEENT: Remarkable for the tubes in place. NECK: Supple. LUNGS: Scattered coarse breath sounds. HEART: Distant, regular. No appreciated murmur. ABDOMEN: Distended, generally pretty firm. There is no overt rigidity. GENITOURINARY: Deferred. RECTAL: Deferred. LABORATORY DATA: Blood cultures as described above. Chest x-ray most recently this morning showed patchy left lower lobe atelectasis, pneumonitis. ABGs: pH 7.285, pCO2 of 34.1, pO2 of 121.1, FiO2 of 40%. Prealbumin of 26.8. CRP of 77.5. Hemoglobin A1c of 7.8. Electrolytes: Sodium 136, potassium 5.4, chloride 98, bicarbonate is 19, anion gap of 19, BUN and creatinine 98 and 4.5, glucose of 282. AST of greater than 20,000. ALT of 16,121, total bilirubin of 2.8, albumin of , total protein 5.7, estimated GFR of 13. CBC: White count of 17.6, H and H 12.4 and 39.1, platelets of 181. Lactic acid has been high throughout, most recently 4.5. He will have a troponin of 4.58. ASSESSMENT: 1. Shock, perhaps on the basis of cardiogenic process. Certainly can exclude a septic etiology with complication related to pneumonitis. The patient aspiration. He is critically ill with multiorgan dysfunction. He is on broad spectrum, antimicrobial therapy is reasonable to adjust that, continue the vancomycin. I do not think the blood culture is going to be significant based on the available information, but certainly will cover it. He will need aggressive support including extraordinary measures. Overall, his prognosis appears quite guarded. <ELECTRONICALLY SIGNED> By: Dillon Rowley MD 11/05/17 1221 0915 1117Jokim Rowley MD /nt
[2017-11-05 12:31] LABS: HEMOGLOBIN 12.4 gm/dL (14.0-18.0); RDW-CV 19.3 % (10.5-14.5)
[2017-11-05 12:33] LABS: HEMATOCRIT 38.5 % (42.0-52.0); MCH 27.3 pg (26.0-34.0); MCHC 32.2 g/dL (28.0-37.0); MCV 84.7 fL (80.0-100.0); MPV 9.9 fl. (7.2-11.1); RBC 4.55 mil/uL (4.50-6.00)
--- NOTE | 2017-11-05 12:38 | NUR ---
VANCOMYCIN PHARMACY TO MANAGE: PATIENT BEING TREATED FOR SEPSIS, PNEUMONIA. WBC=11.5, SCR=4.6, CRRT, TEMP=37.8. PATIENT HAS BEEN RECEIVING DIALYSIS DOSING OF VANCOMYCIN 500 MG. PATIENT IS NOW RECEIVING CRRT. DOSING CHANGED TO FOR CRRT TO VANCOMYCIN 750 MG IV Q12H WITH A TROUGH GOAL OF 15-20 MCG/ML. LEVEL ORDERED FOR 11/07 AT 0930. PHARMACY WILL CONTINUE TO FOLLOW AND MONITOR.
[2017-11-05 12:43] LABS: CREATININE 4.4 mg/dL (0.6-1.3); MAGNESIUM 1.7 mg/dL (1.8-2.4); POTASSIUM 4.9 mmol/L (3.5-5.1)
[2017-11-05 12:44] LABS: CALCIUM 5.8 mg/dL (8.5-10.1); PHOSPHORUS* 7.2 mg/dL (2.5-4.9)
--- NOTE | 2017-11-05 13:10 | CON ---
[address] [address] CONSULTATION Name: BRADY OCHOA SR Room: [address] IN [facility]#: [id number] Admission: 11/02/17 Attend Phys: Dino Pires, Discharge: Date of : 42 Report #: [id number] THIS REPORT FOR: //name// CC: Sami Pires DATE OF SERVICE: 11/03/2017 The patient is in ICU5. HISTORY OF PRESENT ILLNESS: The patient is a very pleasant 77-year-old male who was admitted this weekend with increasing shortness of breath what was felt to reflect respiratory failure and potentially congestive heart failure. He was treated for same, but developed worsening dyspnea and developed a cardiopulmonary arrest with pulseless electrical activity. He was resuscitated and transferred to the ICU. I am seeing at this point with the patient intubated and on Levophed. He does not respond to any questions in the context of sedation required for ventilatory control. I talked to his family, they note a gradual increase in shortness of breath several days prior to admission with some cough productive of slightly thin sputum. He had no thick sputum and then described no sweats and chills. There is no clear history of pneumonia prior to this. The patient is currently being treated for infection and he is on ventilatory support as described above. Blood gasses at 11:58 demonstrated a pH of 7.28, pCO2 of 28, pO2 of 270, bicarbonate of 13.4 with a base excess of 11.8. Lactic acid was elevated. CURRENT MEDICATIONS: Include IV Levophed, IV vancomycin, Versed as required for control of his ventilation. He is on the ventilator as described above with controlled ventilation. There is a history of prior coronary artery bypass grafting and subsequent coronary stenting. According to the , there have been no symptoms typical of his prior ischemic syndrome of late. The patient has permanent atrial fibrillation. PHYSICAL EXAMINATION: GENERAL: Demonstrates an intubated, elderly male. VITAL SIGNS: Blood pressure 92/60, pulse rate is 78 and irregularly irregular and respirations are [place] [address] CONSULTATION Name: BRADY OCHOA SR Room: [address]#: [id number] Admission: 11/02/17 Attend Phys: Dino Pires, Discharge: Date of : 42 Report #: [id number] CHEST: Reveals satisfactory breath sounds bilaterally. CARDIAC: Reveals an irregularly irregular rhythm with a soft systolic murmur. ABDOMEN: Distended and tympanitic. EXTREMITIES: Cool. Electrocardiogram reveals atrial fibrillation with modest ventricular response with a minor interventricular conduction delay of the right eye. LABORATORY DATA: Hemoglobin 12.9, white blood cell count 19,600 with 164,000 platelets. Sodium 141, potassium 5.5, BUN 82, creatinine 3.4. Lactic acid 4.8 and subsequently 8.2. Coagulation times on 11/02/2017, protime 10.9, INR 1.1, PTT 26.0 seconds. IMAGING: Chest radiograph reveals cardiomegaly with evidence of a prior sternotomy. There is no clear evidence for congestive heart failure on sequential radiographs. IMPRESSION: 1. Acute respiratory failure. 2. Metabolic acidosis in the context of #1. 3. Cardiopulmonary arrest with pulseless electrical activity this morning. 4. Coronary artery disease, status post remote coronary artery bypass grafting. 5. Status post prior percutaneous coronary interventions. 6. Permanent atrial fibrillation. 7. Acute on chronic renal failure. RECOMMENDATIONS: 1. Hemodynamic support is currently utilized. 2. Ventilatory support is currently utilized. 3. We will check an echocardiogram today regarding global and segmental left ventricular systolic function as well as central volume status. Troponin I regarding any potential myocardial injury that may have occurred in this context and electrocardiogram demonstrates no clear evidence for ischemia or injury. Rate is satisfactorily controlled at present, does not require modification of rate controlling agent for modulating his ventricular response. We will follow with you. Thank you for allowing me to see the [place] [address] CONSULTATION Name: BRADY OCHOA SR Room: [address] IN [facility]#: [id number] Admission: 11/02/17 Attend Phys: Dino Pires, Discharge: Date of : 42 Report #: [id number] CRITICAL CARE TIME: 35 minutes from 12:10-12:45 on 11/03/2017. <ELECTRONICALLY SIGNED> By: Cristóbal Shook MD, FACC 11/05/17 1310 1249 [id number] Shook MD, [facility] /nt
[2017-11-05 16:40] LABS: HEMOGLOBIN 12.8 gm/dL (14.0-18.0); MCH 27.2 pg (26.0-34.0); WBC 12.5 thou/uL (4.0-11.0)
[2017-11-05 16:42] LABS: HEMATOCRIT 39.4 % (42.0-52.0); MCHC 32.4 g/dL (28.0-37.0); MCV 84.1 fL (80.0-100.0); MPV 9.8 fl. (7.2-11.1); RBC 4.69 mil/uL (4.50-6.00); RDW-CV 19.2 % (10.5-14.5)
[2017-11-05 16:49] LABS: CALCIUM 6.4 mg/dL (8.5-10.1); CREATININE 4.3 mg/dL (0.6-1.3); MAGNESIUM 1.8 mg/dL (1.8-2.4); PHOSPHORUS* 7.1 mg/dL (2.5-4.9); POTASSIUM 4.8 mmol/L (3.5-5.1)
--- NOTE | 2017-11-05 17:32 | NUR ---
PT TRANSFERRED TO ICU 11/03, CODED AND WAS INTUBATED. REMAINS ON VENT. NO FAMILY IN THE ROOM AT THIS TIME. CASE MGT TO CONTINUE TO FOLLOW.
--- NOTE | 2017-11-05 17:53 | NUR ---
PATIENT HAS PROGRESSED WELL TOWARDS GOALS TODAY. ABLE TO REMAIN ON CRRT ALL DAY AND CONTINUING AT THIS TIME. LABS ARE IMPROVING. ABLE TO WEAN OFF SOME LEVO,. ART LINE OBTAINED FOR ACCURATE BLOOD PRESSURE READINGS. PATIENT RESPONDS TO MOUTH CARE BY BITING ON TUBE BUT HAS NO GAG AT THIS TIME. SLUGGISH PUPILS. FAMILY HAS BEEN AT BEDSIDE AND UPDATED THROUGHOUT THE DAY. BED IN LOWEST POSITION, BED ALARM ON, NEON SIGN MAKER IN PLACE. WILL CONTINUE TO MONITOR.
[2017-11-05 20:30] LABS: HEMATOCRIT 39.5 % (42.0-52.0); HEMOGLOBIN 12.6 gm/dL (14.0-18.0); MCHC 31.9 g/dL (28.0-37.0); MCV 84.8 fL (80.0-100.0); RBC 4.66 mil/uL (4.50-6.00); RDW-CV 19.1 % (10.5-14.5); WBC 11.9 thou/uL (4.0-11.0)
[2017-11-05 20:41] LABS: CALCIUM 6.2 mg/dL (8.5-10.1); CREATININE 3.9 mg/dL (0.6-1.3); MAGNESIUM 1.7 mg/dL (1.8-2.4); PHOSPHORUS* 6.3 mg/dL (2.5-4.9); POTASSIUM 4.5 mmol/L (3.5-5.1)
[2017-11-06 01:57] LABS: MCH 27.1 pg (26.0-34.0)
[2017-11-06 01:58] LABS: HEMATOCRIT 40.2 % (42.0-52.0); MCHC 32.3 g/dL (28.0-37.0); MCV 84.1 fL (80.0-100.0); RBC 4.77 mil/uL (4.50-6.00); RDW-CV 19.8 % (10.5-14.5); WBC 11.2 thou/uL (4.0-11.0)
[2017-11-06 02:02] LABS: CALCIUM 6.7 mg/dL (8.5-10.1); CREATININE 3.8 mg/dL (0.6-1.3); MAGNESIUM 1.8 mg/dL (1.8-2.4); PHOSPHORUS* 6.1 mg/dL (2.5-4.9); POTASSIUM 4.5 mmol/L (3.5-5.1)
[2017-11-06 04:55] LABS: ABSOLUTE LYMPHOCYTES 0.5 thou/uL (0.8-5.3); ABSOLUTE MONOCYTES 0.8 thou/uL (0.0-1.2); ABSOLUTE NEUTROPHILS 10.7 thou/uL (1.6-8.1); BASOPHILS 0.1 %; HEMATOCRIT 40.1 % (42.0-52.0); HEMOGLOBIN 12.7 gm/dL (14.0-18.0); LYMPHOCYTES 4.3 %; MCH 26.9 pg (26.0-34.0); MCHC 31.7 g/dL (28.0-37.0); MCV 84.7 fL (80.0-100.0); MONOCYTES 6.6 %; MPV 10.1 fl. (7.2-11.1); NUCLEATED RBCS 3 /100WBC; PLATELET COUNT* 97 thou/uL (150-400); RBC 4.73 mil/uL (4.50-6.00); RDW-CV 19.2 % (10.5-14.5)
[2017-11-06 05:08] LABS: APTT 29.1 Seconds (25.0-31.3); INR 3.3; PROTIME 31.5 Seconds (9.20-11.50)
[2017-11-06 05:36] LABS: ALBUMIN 2.4 g/dL (3.4-5.0); CALCIUM 6.5 mg/dL (8.5-10.1); CREATININE 3.5 mg/dL (0.6-1.3); MAGNESIUM 1.7 mg/dL (1.8-2.4); POTASSIUM 4.5 mmol/L (3.5-5.1); TOTAL BILIRUBIN 3.3 mg/dL (<0.1-1.0)
[2017-11-06 05:59] LABS: PHOSPHORUS* 5.5 mg/dL (2.5-4.9)
--- NOTE | 2017-11-06 06:28 | NUR ---
PT. PROGRESSING TOWARDS GOALS, LEVOPHED GTT AT 8 MCG/KG/MIN. CRRT RUNNING THROUGHOUT SHIFT, CUMULATIVE UF +142. AFLUTTER, BRADYCARDIC AT TIMES. VERSED/FENTANYL GTT'S REMAIN INFUSING. AFEBRILE. DOES NOT FOLLOW COMMANDS. 100CC TOTAL URINE OUTPUT. WILL CONTINUE TO MONITOR.
--- NOTE | 2017-11-06 07:30 | NUR ---
PT REMIANS VENTED, CRRT IN PROGRESS, PT REMANS IN A FLUTTER WITH HEART RATE OCCASIONALLY DROPPING IN TO UPPER 40'S NON SUSTAINED. ART LINE AND CVP LINE BOTH IN USE, ZEROED. PT REMANS SEDATED AND NOT RESPONSIVE. NOTED WITH MOUTH CARE PT WILL CLOSE MOUTH ALSO WHEN DEEP SUCTIONING PT WILL CLOSED MOUTH BUT NO COUGH REFLEX NOTED.PT REMAINS A 1 TO 1 DUE TO DIALYSIS.
--- NOTE | 2017-11-06 08:10 | NUR ---
RRDIUAL ON TUBE FEEDING 450 ML, DR LINO AWARE, TUBE FEEDING ON HOLD.
[2017-11-06 08:27] LABS: BE -4.8 mmol/L (-2 to +3); HCO3 20.1 mmol/L (22.0-26.0); PCO2 36.4 mmHg (35.0-45.0); pH 7.359 (7.340-7.450)
[2017-11-06 09:08] LABS: MCH 27.1 pg (26.0-34.0)
[2017-11-06 09:10] LABS: HEMATOCRIT 40.8 % (42.0-52.0); HEMOGLOBIN 13.2 gm/dL (14.0-18.0); MCHC 32.5 g/dL (28.0-37.0); MCV 83.6 fL (80.0-100.0); MPV 10.4 fl. (7.2-11.1); RBC 4.88 mil/uL (4.50-6.00); RDW-CV 19.1 % (10.5-14.5); WBC 13.3 thou/uL (4.0-11.0)
[2017-11-06 09:18] LABS: CALCIUM 7.1 mg/dL (8.5-10.1); CREATININE 3.5 mg/dL (0.6-1.3); MAGNESIUM 1.8 mg/dL (1.8-2.4); PHOSPHORUS* 5.4 mg/dL (2.5-4.9); POTASSIUM 4.7 mmol/L (3.5-5.1)
--- NOTE | 2017-11-06 10:29 | NUR ---
VANCOMYCIN PHARMACY TO MANAGE: PATIENT IS BEING TREATED FOR SEPSIS. WBC=12, SCR=3.5, ON CRRT, TEMP=36.5. PATIENT HAS BEEN RECEIVING A MAINTENANCE DOSE OF VANCOMYCIN 750 MG IV Q12H WITH A TROUGH GOAL OF 15-20 MCG/ML. A LEVEL WAS DRAWN TODAY WITH RESULT OF 24 MCG/ML WHICH IS ABOVE GOAL. PLAN IS TO CHANGE DOSE TO VANCOMYCIN 500 MG IV Q12H WITH A TROUGH GOAL OF 15-20 MCG/ML. A LEVEL IS ORDERED FOR 11/08 AT 1100. PHARMACY WILL CONTINUE TO FOLLOW AND MONITOR.
--- NOTE | 2017-11-06 11:28 | NUR ---
ICU ROUNDS: CM SPOKE TO THE RN IN-CHARGE OF THE PATIENTS CARE AND SHE INFORMS THAT THE PATIENT IS CURRENTLY ON THE VENT, IN A FLUTTER, 100CC URINE OUTPUT,AND TOLERATING TUBE FEEDING. CM SPOKE TO THE PATIENTS (DEEP) AT THE BEDSIDE AND SHE INFORMS THAT PRIOR TO ADMISSION THE PATIENT RESIDED AT HOME. PATIENT WAS INDEPENDENT AND DROVE. PATIENT USED A CANE FOR MOBILITY. PATIENTS INFORMED OF THE ROLE OF CM. CM WILL REMAIN AVAILABLE TO ASSIST AND FOLLOW NEEDED.
--- NOTE | 2017-11-06 11:32 | PROC ---
[address] [address] PROCEDURE REPORT Name: BRADY OCHOA SR Room: [address] IN ..#: [id number] Admission: 11/02/17 Attend Phys: Dino Pires, Discharge: Date of : 44 Report #: [id number] THIS REPORT FOR: //name// CC: Sami Pires DATE OF SERVICE: 11/04/2017 PREOPERATIVE DIAGNOSIS: Acute renal failure. POSTOPERATIVE DIAGNOSIS: Acute renal failure. PROCEDURE: Placement of right femoral temporary dialysis catheter. SURGEON: Ar Lemus MD. ANESTHESIA: Local. ESTIMATED BLOOD LOSS: Minimal. DESCRIPTION OF PROCEDURE: After informed consent was obtained, the patient was placed supine on the ICU bed. The right groin was prepped and draped in the usual sterile fashion. The right femoral vein was cannulated. Wire was placed. Dilator was placed. A 16 cm catheter was placed. ports flushed and sukhwinder easily. Sterile dressings were applied. COMPLICATIONS: None. <ELECTRONICALLY SIGNED> By: Ar Lemus MD 11/06/17 1132 [id number] Lemus MD /nt
[2017-11-06 13:10] LABS: HEMATOCRIT 40.7 % (42.0-52.0); HEMOGLOBIN 13.1 gm/dL (14.0-18.0); MCH 27.1 pg (26.0-34.0); MCHC 32.2 g/dL (28.0-37.0); MCV 84.2 fL (80.0-100.0); RBC 4.83 mil/uL (4.50-6.00); WBC 13.7 thou/uL (4.0-11.0)
[2017-11-06 13:20] LABS: CREATININE 3.4 mg/dL (0.6-1.3); MAGNESIUM 1.8 mg/dL (1.8-2.4); PHOSPHORUS* 5.2 mg/dL (2.5-4.9); POTASSIUM 4.5 mmol/L (3.5-5.1)
--- NOTE | 2017-11-06 15:00 | NUR ---
IN ROOM PT HAVING BRATHING TX, PT WENT INTO A FIB WITH RATE 120-130'S. PT BECAME DUSKY. PT MAINTAINED 02 SATS BUT WAS OVER BREATHING VENT. SEATION MED OF FENTANYL INCREASED TO 100 MCG, WITH IN MINUTES PT HEART RATE WAS IN 90'S TRENDING DOWN.
[2017-11-06 17:42] LABS: HEMATOCRIT 40.9 % (42.0-52.0); HEMOGLOBIN 13.2 gm/dL (14.0-18.0); MCH 27.3 pg (26.0-34.0); MCHC 32.4 g/dL (28.0-37.0); MCV 84.2 fL (80.0-100.0); RBC 4.86 mil/uL (4.50-6.00); RDW-CV 19.1 % (10.5-14.5); WBC 15.7 thou/uL (4.0-11.0)
[2017-11-06 17:59] LABS: CALCIUM 7.3 mg/dL (8.5-10.1); CREATININE 3.2 mg/dL (0.6-1.3); MAGNESIUM 1.8 mg/dL (1.8-2.4); POTASSIUM 4.8 mmol/L (3.5-5.1)
--- NOTE | 2017-11-06 18:26 | NUR ---
PT REMAINS SEDATED ON VENT.SIGNIFIGANT OTHER REMAINED IN ROOM MOST OF DAY. PT HAS NO FURTHER EPISODES OF RAPID HEART RATE.PT URINE OUT PUT POOR, 50 ML DK CONCENTRATED. ART LINE AND CVP LINE REMIAN IN USE. CVP RUNNING ANYWHERE FROM 9-15. TUBE FEEDING RESTARED WITH NO RESIDUAL NOTED AT 1700, RESTARTED AT 10 ML/HR. PT BLOOD SUGARS REMAIN ELEVATED PT PLACED ON VERY HIGH S/S PER PROTOCOL.PT IS NOT PROGRESSING WELL TOWARDS GOALS.
[2017-11-06 22:05] LABS: HEMOGLOBIN 12.9 gm/dL (14.0-18.0)
[2017-11-06 22:06] LABS: HEMATOCRIT 40.5 % (42.0-52.0); MCHC 31.9 g/dL (28.0-37.0); MCV 84.7 fL (80.0-100.0); MPV 10.2 fl. (7.2-11.1); RBC 4.78 mil/uL (4.50-6.00); RDW-CV 19.2 % (10.5-14.5); WBC 16.1 thou/uL (4.0-11.0)
[2017-11-06 22:11] LABS: CREATININE 3.2 mg/dL (0.6-1.3); MAGNESIUM 1.7 mg/dL (1.8-2.4); PHOSPHORUS* 4.8 mg/dL (2.5-4.9); POTASSIUM 4.6 mmol/L (3.5-5.1)
[2017-11-06 22:13] LABS: CALCIUM 12.8 mg/dL (8.5-10.1)
[2017-11-07 02:07] LABS: ADENOVIRUS Negative (Negative); INFLUENZA A Negative (Negative); INFLUENZA B Negative (Negative); METAPNEUMOVIRUS Negative (Negative); PARAINFLUENZA 1 Negative (Negative); PARAINFLUENZA 2 Negative (Negative); PARAINFLUENZA 3 Negative (Negative); RHINOVIRUS Positive (Negative); RSV A Negative (Negative); RSV B Negative (Negative)
[2017-11-07 02:56] LABS: ABSOLUTE LYMPHOCYTES 0.3 thou/uL (0.8-5.3); ABSOLUTE MONOCYTES 0.9 thou/uL (0.0-1.2); BASOPHILS 0.2 %; EOSINOPHILS 0.1 %; HEMOGLOBIN 12.7 gm/dL (14.0-18.0); LYMPHOCYTES 1.9 %; MCHC 31.8 g/dL (28.0-37.0); MCV 84.9 fL (80.0-100.0); MONOCYTES 6.6 %; MPV 10.1 fl. (7.2-11.1); NUCLEATED RBCS 2 /100WBC; PLATELET COUNT* 92 thou/uL (150-400); POLYS 91.2 %; RBC 4.72 mil/uL (4.50-6.00); RDW-CV 19.1 % (10.5-14.5); WBC 14.2 thou/uL (4.0-11.0)
[2017-11-07 03:08] LABS: CALCIUM 7.4 mg/dL (8.5-10.1); CREATININE 3.1 mg/dL (0.6-1.3); MAGNESIUM 1.8 mg/dL (1.8-2.4); PHOSPHORUS* 5.1 mg/dL (2.5-4.9); POTASSIUM 4.7 mmol/L (3.5-5.1)
[2017-11-07 03:19] LABS: BE -4.3 mmol/L (-2 to +3); HCO3 20.4 mmol/L (22.0-26.0); PCO2 36.6 mmHg (35.0-45.0); pH 7.365 (7.340-7.450)
[2017-11-07 03:22] LABS: PO2 127.9 mmHg (75.0-100.0)
[2017-11-07 05:16] LABS: ABSOLUTE LYMPHOCYTES 0.4 thou/uL (0.8-5.3); ABSOLUTE MONOCYTES 1.3 thou/uL (0.0-1.2); ABSOLUTE NEUTROPHILS 14.2 thou/uL (1.6-8.1); HEMATOCRIT 40.1 % (42.0-52.0); LYMPHOCYTES 2.4 %; MCH 27.2 pg (26.0-34.0); MCHC 32.3 g/dL (28.0-37.0); MCV 84.2 fL (80.0-100.0); MONOCYTES 8.2 %; MPV 9.8 fl. (7.2-11.1); NUCLEATED RBCS 5 /100WBC; PLATELET COUNT* 98 thou/uL (150-400); POLYS 89.4 %; RBC 4.76 mil/uL (4.50-6.00); RDW-CV 19.2 % (10.5-14.5); WBC 15.8 thou/uL (4.0-11.0)
--- NOTE | 2017-11-07 05:28 | NUR ---
PT. PROGRESSING TOWARDS GOALS. REMAINS SEDATED ON VENTILATOR WITH VERSED/FENTANYL GTT'S. CRRT RUNNING THROUGHOUT SHIFT, TOLERATED WELL. LEVOPHED GTT AT 5MCG/MIN. LEFT RADIAL ART LINE REMAINS IN PLACE. OLIGURIC. FIO2 DOWN TO 25%. UPDATED ON PT'S STATUS. REMAINS AFLUTTER/AFIB. WILL CONTINUE TO MONITOR.
[2017-11-07 05:43] LABS: CALCIUM 7.5 mg/dL (8.5-10.1); CREATININE 3.1 mg/dL (0.6-1.3); MAGNESIUM 1.9 mg/dL (1.8-2.4); PHOSPHORUS* 4.9 mg/dL (2.5-4.9); POTASSIUM 4.8 mmol/L (3.5-5.1)
[2017-11-07 09:12] LABS: ABSOLUTE LYMPHOCYTES 0.3 thou/uL (0.8-5.3); ABSOLUTE NEUTROPHILS 14.5 thou/uL (1.6-8.1); EOSINOPHILS 0.1 %; MCHC 32.2 g/dL (28.0-37.0); MPV 10.1 fl. (7.2-11.1)
[2017-11-07 09:13] LABS: ABSOLUTE MONOCYTES 0.9 thou/uL (0.0-1.2); BASOPHILS 0.3 %; HEMATOCRIT 40.5 % (42.0-52.0); MCH 26.9 pg (26.0-34.0); MCV 83.5 fL (80.0-100.0); NUCLEATED RBCS 3 /100WBC; PLATELET COUNT* 99 thou/uL (150-400); POLYS 91.6 %; RBC 4.85 mil/uL (4.50-6.00); RDW-CV 18.9 % (10.5-14.5); WBC 15.8 thou/uL (4.0-11.0)
[2017-11-07 09:20] LABS: CALCIUM 7.8 mg/dL (8.5-10.1); MAGNESIUM 1.9 mg/dL (1.8-2.4); PHOSPHORUS* 4.6 mg/dL (2.5-4.9); POTASSIUM 4.7 mmol/L (3.5-5.1)
--- NOTE | 2017-11-07 10:25 | NUR ---
7512-2015 CRRT CIRCUT CHANGED. NEW ORDER TO REMOVE 100 ML OF FLUID EVERY HOUR. AM CARE COMPLETED, WILL TITRATE FENTANYL PER DISCUSSION WITH PULMONARY
--- NOTE | 2017-11-07 11:00 | NUR ---
PT REMAINS ON VENT, CRRT, LEVO GTT. AT BEDSIDE. CASE MGT WILL CONTINUE TO FOLLOW.
--- NOTE | 2017-11-07 13:00 | NUR ---
MARIBELL FROM LAB ON PHONE REPORTED CRITICAL VALUE OF IONIZED CALCIUM OF 7.1 ASKED WHICH TIMED LAB THIS WAS FROM, MARIBELL CALLED [facility], THIS LAB WAS WAS FROM PREVIOUS EVENIONG LATEST LAB WAS 0900 AND WAS IN NORMAL LIMITS.
[2017-11-07 13:18] LABS: ABSOLUTE LYMPHOCYTES 0.3 thou/uL (0.8-5.3); ABSOLUTE MONOCYTES 0.9 thou/uL (0.0-1.2); ABSOLUTE NEUTROPHILS 15.1 thou/uL (1.6-8.1); BASOPHILS 0.1 %; EOSINOPHILS 0.2 %; HEMATOCRIT 39.6 % (42.0-52.0); HEMOGLOBIN 12.7 gm/dL (14.0-18.0); LYMPHOCYTES 1.6 %; MCHC 32.2 g/dL (28.0-37.0); MONOCYTES 5.4 %; MPV 10.2 fl. (7.2-11.1); NUCLEATED RBCS 2 /100WBC; PLATELET COUNT* 97 thou/uL (150-400); POLYS 92.7 %; RBC 4.71 mil/uL (4.50-6.00); WBC 16.3 thou/uL (4.0-11.0)
[2017-11-07 13:27] LABS: CALCIUM 7.4 mg/dL (8.5-10.1); MAGNESIUM 1.8 mg/dL (1.8-2.4); PHOSPHORUS* 4.1 mg/dL (2.5-4.9); POTASSIUM 4.5 mmol/L (3.5-5.1)
--- NOTE | 2017-11-07 14:53 | EKG ---
[place] [address] ELECTROCARDIOGRAM REPORT Name: BRADY OCHOA SR Room: [address] ADM IN [facility].#: [id number] Admission: 11/02/17 Attend Phys: Dino Pires, Discharge: Date of : 44 Report #: [id number] THIS REPORT FOR: //name// [facility] Test Date: 2017-11-06 Test Time: 15:09:42 Pat Name: BRADY OCHOA Department: Room: [address] Gender: M Lab Courier: UNKNOWN : 1940 Requested By: Wu Reinoso Order Number: [id number] Etienne MD: Cristóbal Shook Measurements Intervals [place] Rate: 132 P: [place]: QRS: 195 QRSD: 111 T: -15 QT: 352 QTc: 522 Interpretive Statements Atrial fibrillation Probable right ventricular hypertrophy Consider anterolateral infarct Prolonged QT interval Compared to ECG 11/04/2017 10:16:36 Myocardial infarct finding now present Sinus rhythm no longer present First degree AV block no longer present Right-axis deviation no longer present Electronically Signed On 11-07-2017 14:52:50 HEAD OF STOCK by Cristóbal Shook [email or web address] <ELECTRONICALLY SIGNED> By: Cristóbal Shook MD, [facility] 11/07/17 1452 1509 1509 Cristóbal Shook MD, [facility] /EPI
[2017-11-07 17:14] LABS: ABSOLUTE LYMPHOCYTES 0.2 thou/uL (0.8-5.3); ABSOLUTE MONOCYTES 1.1 thou/uL (0.0-1.2); ABSOLUTE NEUTROPHILS 14.1 thou/uL (1.6-8.1); BASOPHILS 0.2 %; HEMATOCRIT 39.1 % (42.0-52.0); HEMOGLOBIN 12.6 gm/dL (14.0-18.0); LYMPHOCYTES 1.4 %; MCH 27.1 pg (26.0-34.0); MCHC 32.2 g/dL (28.0-37.0); MONOCYTES 7.3 %; MPV 10.7 fl. (7.2-11.1); NUCLEATED RBCS 3 /100WBC; PLATELET COUNT* 91 thou/uL (150-400); POLYS 91.1 %; RBC 4.66 mil/uL (4.50-6.00); RDW-CV 18.9 % (10.5-14.5); WBC 15.5 thou/uL (4.0-11.0)
[2017-11-07 17:23] LABS: CALCIUM 7.6 mg/dL (8.5-10.1); MAGNESIUM 1.9 mg/dL (1.8-2.4); PHOSPHORUS* 4.4 mg/dL (2.5-4.9); POTASSIUM 4.6 mmol/L (3.5-5.1)
--- NOTE | 2017-11-07 19:31 | NUR ---
PT REMIANS ON LEVOPHED, FENTANYL, AND VERSED GTT. PT TOLERATING TUBE FEEDING. PT WEIGHT SHIFTED THROUGH SHIFT. PT REMAINS ON CRRT AND TOLERATING PULLING FLUID OFF DURING THIS PROCEDURE.SIG OTHER REMAINED IN ROOM THROUGH DAY.PT PROGRESSING SLOWLY TOWARDS DISCHARGE GOALS.SHIFT CHANGE REPORT GIVEN.
[2017-11-07 21:37] LABS: ABSOLUTE BASOPHILS 0.1 thou/uL (0.0-0.2); ABSOLUTE LYMPHOCYTES 0.2 thou/uL (0.8-5.3); ABSOLUTE MONOCYTES 1.3 thou/uL (0.0-1.2); ABSOLUTE NEUTROPHILS 16.3 thou/uL (1.6-8.1); BASOPHILS 0.7 %; HEMATOCRIT 40.9 % (42.0-52.0); LYMPHOCYTES 1.4 %; MCH 26.9 pg (26.0-34.0); MCHC 31.8 g/dL (28.0-37.0); MCV 84.6 fL (80.0-100.0); MONOCYTES 7.2 %; MPV 10.4 fl. (7.2-11.1); NUCLEATED RBCS 2 /100WBC; PLATELET COUNT* 106 thou/uL (150-400); POLYS 90.7 %; RBC 4.83 mil/uL (4.50-6.00); RDW-CV 19.2 % (10.5-14.5)
[2017-11-07 21:50] LABS: CALCIUM 7.8 mg/dL (8.5-10.1); CREATININE 2.9 mg/dL (0.6-1.3); PHOSPHORUS* 4.5 mg/dL (2.5-4.9); POTASSIUM 4.6 mmol/L (3.5-5.1)
[2017-11-08 00:57] LABS: HEMOGLOBIN 12.7 gm/dL (14.0-18.0); MCH 27.1 pg (26.0-34.0)
[2017-11-08 00:58] LABS: HEMATOCRIT 39.9 % (42.0-52.0); MCHC 31.8 g/dL (28.0-37.0); MPV 10.2 fl. (7.2-11.1); RBC 4.7 mil/uL (4.50-6.00); WBC 17.6 thou/uL (4.0-11.0)
[2017-11-08 01:11] LABS: CALCIUM 7.9 mg/dL (8.5-10.1); CREATININE 2.8 mg/dL (0.6-1.3); PHOSPHORUS* 4.6 mg/dL (2.5-4.9); POTASSIUM 4.7 mmol/L (3.5-5.1)
[2017-11-08 05:25] LABS: HEMATOCRIT 40.8 % (42.0-52.0); MCH 26.9 pg (26.0-34.0); MCHC 31.9 g/dL (28.0-37.0); MCV 84.1 fL (80.0-100.0); NUCLEATED RBCS 3 /100WBC; PLATELET COUNT* 101 thou/uL (150-400); RBC 4.85 mil/uL (4.50-6.00); RDW-CV 19.4 % (10.5-14.5); WBC 17.9 thou/uL (4.0-11.0)
[2017-11-08 06:06] LABS: ALBUMIN 2.3 g/dL (3.4-5.0); CALCIUM 7.8 mg/dL (8.5-10.1); CREATININE 2.7 mg/dL (0.6-1.3); POTASSIUM 4.6 mmol/L (3.5-5.1)
[2017-11-08 06:12] LABS: ABSOLUTE LYMPHOCYTES 1.3 thou/uL (0.8-5.3); ABSOLUTE MONOCYTES 2.7 thou/uL (0.0-1.2); ATYPICAL LYMPHS 4 %
[2017-11-08 06:13] LABS: ANISOCYTOSIS 2+; BURR CELLS 1+; POLYCHROMASIA 1+
[2017-11-08 06:28] LABS: BE -1.5 mmol/L (-2 to +3); HCO3 23.5 mmol/L (22.0-26.0); PCO2 40.6 mmHg (35.0-45.0); PO2 88.7 mmHg (75.0-100.0)
--- NOTE | 2017-11-08 08:12 | NUR ---
RECEIVED REPORT FROM LAKESHA ELLIS. ASSESSMENT CHARTED. AFEBRILE. TUBE FEEDINGS ON HOLD DUE TO HIGH RESIDUALS AND PT HAS NOT HAD BM YET. SPOKE WITH PHYSICAN AND ORDER FOR LACTULOSE WAS PRESCRIBED. PT IS STILL ON CRRT AND TOLERATING WELL. PT ON LEVO, VERSED, AND FENTANYL GTT. WILL CONTINUE TO MONITOR.
[2017-11-08 09:01] LABS: HEMATOCRIT 40.7 % (42.0-52.0); HEMOGLOBIN 13.1 gm/dL (14.0-18.0); MCHC 32.2 g/dL (28.0-37.0); MCV 83.9 fL (80.0-100.0); MPV 10.2 fl. (7.2-11.1); RBC 4.86 mil/uL (4.50-6.00); RDW-CV 19.8 % (10.5-14.5); WBC 18.1 thou/uL (4.0-11.0)
[2017-11-08 09:15] LABS: CALCIUM 8.2 mg/dL (8.5-10.1); CREATININE 2.7 mg/dL (0.6-1.3); PHOSPHORUS* 4.8 mg/dL (2.5-4.9); POTASSIUM 4.9 mmol/L (3.5-5.1)
--- NOTE | 2017-11-08 12:26 | NUR ---
PATIENT RECEIVING VANCOMYCIN 0.5G Q12H FOR THE TREATMENT OF SEPSIS PER DR LINO. A PROPERLY-DRAWN TROUGH YIELDED A LEVEL OF 20, WHICH IS WITHIN THE GOAL RANGE OF 15-20 MCG/ML. CURRENT LABS INCLUDE WBC=17.9, CR=2.7 AND THE PATIENT CONTINUES TO RECEIVE CRRT. CURRENT VANCOMYCIN DOSING WILL BE CONTINUED AND PHARMACY WILL FOLLOW.
--- NOTE | 2017-11-08 12:47 | EKG ---
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29 : 1940 Requested By: Wu Reinoso Order Number: [id number] Etienne MD: Nato Trinidad Measurements Intervals [place] Rate: 50 P: [place]: QRS: 71 QRSD: 179 T: -55 QT: 478 QTc: 436 Interpretive Statements Atrial flutter Right bundle branch block Compared to ECG 11/06/2017 15:09:42 Right bundle-branch block now present Atrial fibrillation no longer present Myocardial infarct finding no longer present Prolonged QT interval no longer present Electronically Signed On 11-08-2017 12:47:19 MAINTENANCE TEAM LEADER by Nato Trinidad [email or web address] <ELECTRONICALLY SIGNED> By: Nato Trinidad MD, FACC 11/08/17 1247 0924 0924 Nato Trinidad MD, FAC /EPI
[2017-11-08 12:51] LABS: HEMATOCRIT 41.9 % (42.0-52.0); HEMOGLOBIN 13.3 gm/dL (14.0-18.0); MCHC 31.7 g/dL (28.0-37.0); MCV 85.2 fL (80.0-100.0); MPV 10.1 fl. (7.2-11.1); RBC 4.92 mil/uL (4.50-6.00); RDW-CV 19.5 % (10.5-14.5); WBC 18.8 thou/uL (4.0-11.0)
[2017-11-08 13:03] LABS: CALCIUM 8.1 mg/dL (8.5-10.1); CREATININE 2.7 mg/dL (0.6-1.3); PHOSPHORUS* 4.9 mg/dL (2.5-4.9); POTASSIUM 5.2 mmol/L (3.5-5.1)
--- NOTE | 2017-11-08 14:43 | NUR ---
TPN MANAGEMENT DAY 1 NUTRITIONAL NEEDS WERE CALCULATED BASED ON THE FOLLOWING: BEE (BASED ON ADJUSTED BODY WEIGHT) = 1214 KCAL/DAY STRESS FACTOR OF 1.3 (MODERATE STRESS) DUE TO ARF/BEING ON VENT PROTEIN REQUIREMENT OF 1 G/KG/DAY BASED ON MODERATE STRESS, ARF, CRRT AT A GOAL RATE OF 80 ML/HR THIS TPN WILL PROVIDE A TOTAL OF 2140 KCAL/DAY INCLUDING: AMINO ACIDS = 88.6 G, 354 KCAL DEXTROSE = 341 G, 1161 KCAL LIPIDS = 69.4G, 625 KCAL STANDARD ADDITIVES WERE INCLUDED IN THE TPN, WITH THE EXCEPTION OF POTASSIUM CHLORIDE, WHICH WAS DECREASED TO 10 MEQ/L, DUE TO A K+ LEVEL OF 5.2 THIS MORNING. GLUCOSE LEVELS HAVE BEEN HIGH, BUT THE PATIENT HAS SLIDING SCALE INSULIN ORDERED. PATIENT'S FLUID NEEDS ARE APPROXIMATELY 2500 ML PER DAY. WITH THIS TPN AND THE PATIENT'S CURRENT IV MEDICATIONS, THESE FLUIDS WILL MEET THE PATIENT'S NEEDS. THE TPN WILL BEGIN AT 2200 WITH AN INITIAL RATE OF 40 ML/HR. WE PLAN TO INCREASE THE RATE TO 80 ML/HR ON DAY 2, IF TOLERATED. PHARMACY WILL CONTINUE TO MONITOR AND ASSESS NEEDED. THANK YOU.
[2017-11-08 17:34] LABS: HEMATOCRIT 40.2 % (42.0-52.0); HEMOGLOBIN 12.8 gm/dL (14.0-18.0); MCH 26.8 pg (26.0-34.0); MCHC 31.9 g/dL (28.0-37.0); MCV 83.9 fL (80.0-100.0); RBC 4.79 mil/uL (4.50-6.00); WBC 14.9 thou/uL (4.0-11.0)
[2017-11-08 17:50] LABS: CALCIUM 8.2 mg/dL (8.5-10.1); CREATININE 2.7 mg/dL (0.6-1.3); PHOSPHORUS* 4.8 mg/dL (2.5-4.9); POTASSIUM 4.9 mmol/L (3.5-5.1)
--- NOTE | 2017-11-08 18:34 | NUR ---
PT NOT PROGRESSING TOWARDS GOALS. ASSESSMENTS CHARTED. AFEBRILE. PT STILL ON LEVO. TITRATED DOWN TO 2 MCG. 50 ML OUTPUT. FLUIDS D/C'D. TPN WILL START TONIGHT. MEDS GIVEN. TOLERATING CRRT WELL. FAMILY UPDATED ON PLAN OF CARE.
[2017-11-08 21:54] LABS: HEMATOCRIT 37.4 % (42.0-52.0); HEMOGLOBIN 11.9 gm/dL (14.0-18.0); MCHC 31.9 g/dL (28.0-37.0); MCV 84.7 fL (80.0-100.0); RBC 4.41 mil/uL (4.50-6.00); RDW-CV 19.6 % (10.5-14.5); WBC 12.6 thou/uL (4.0-11.0)
[2017-11-08 22:02] LABS: CALCIUM 8.3 mg/dL (8.5-10.1); CREATININE 2.6 mg/dL (0.6-1.3); MAGNESIUM 2.1 mg/dL (1.8-2.4); PHOSPHORUS* 4.6 mg/dL (2.5-4.9); POTASSIUM 4.9 mmol/L (3.5-5.1)
[2017-11-09 01:44] LABS: HEMATOCRIT 35.4 % (42.0-52.0); HEMOGLOBIN 11.4 gm/dL (14.0-18.0); MCH 27.2 pg (26.0-34.0); MCHC 32.2 g/dL (28.0-37.0); MCV 84.5 fL (80.0-100.0); MPV 10.2 fl. (7.2-11.1); RBC 4.19 mil/uL (4.50-6.00); RDW-CV 19.2 % (10.5-14.5); WBC 11.9 thou/uL (4.0-11.0)
[2017-11-09 01:46] LABS: CALCIUM 8.4 mg/dL (8.5-10.1); CREATININE 2.6 mg/dL (0.6-1.3); MAGNESIUM 2.1 mg/dL (1.8-2.4); PHOSPHORUS* 4.5 mg/dL (2.5-4.9)
[2017-11-09 03:48] VITALS: BP 110/64
[2017-11-09 04:13] LABS: BE -2.6 mmol/L (-2 to +3); HCO3 22.3 mmol/L (22.0-26.0); PCO2 38.7 mmHg (35.0-45.0); PO2 77.5 mmHg (75.0-100.0); pH 7.378 (7.340-7.450)
--- NOTE | 2017-11-09 05:38 | NUR ---
PT PROGRESSING TOWARD GOALS. PT WAS ABLE TO MAINTAIN BP ON HIS OWN DURING THE NIGHT. LEVO GTT WAS TURNED OFF. PT BODY TEMP DROPPING. TRANG HUGGER WAS PLACED ON PT TO ASSIST WITH TEMP. PT REMAINS SEDATED BUT WILL CLENCH JAW WHEN MOUTH CARE IS ATTEMPTED. PT WAS GENTLY TURNED TO LEFT SIDE AND SEMI-FOWLERS DURING THE EVENING. DIALYSIS PORT IS VERY POSITIONAL.
[2017-11-09 13:03] LABS: HEMATOCRIT 34.3 % (42.0-52.0); HEMOGLOBIN 10.9 gm/dL (14.0-18.0); MCH 27.3 pg (26.0-34.0); MCHC 31.9 g/dL (28.0-37.0); MCV 85.8 fL (80.0-100.0); MPV 9.8 fl. (7.2-11.1); PLATELET COUNT* 76 thou/uL (150-400); RDW-CV 19.8 % (10.5-14.5); WBC 15.9 thou/uL (4.0-11.0)
[2017-11-09 13:14] LABS: CALCIUM 8.2 mg/dL (8.5-10.1); CREATININE 2.5 mg/dL (0.6-1.3); MAGNESIUM 2.2 mg/dL (1.8-2.4); PHOSPHORUS* 4.3 mg/dL (2.5-4.9); POTASSIUM 5.2 mmol/L (3.5-5.1)
--- NOTE | 2017-11-09 13:20 | EKG ---
[place] [address] ELECTROCARDIOGRAM REPORT Name: BRADY OCHOA SR Room: [address] ADM IN [facility]#: [id number] Admission: 11/02/17 Attend Phys: Dino Pires, Discharge: Date of : 44 Report #: [id number] THIS REPORT FOR: //name// [facility] Test Date: 2017-11-09 Test Time: 06:02:05 Pat Name: BRADY OCHOA Department: Room: [address] Gender: M Nuclear Pharmacist: UNKNOWN : 1940 Requested By: Dino Pires Order Number: [id number] Etienne MD: Nato Trinidad Measurements Intervals [place] Rate: 135 P: [place]: QRS: 56 QRSD: 114 T: -74 QT: 312 QTc: 468 Interpretive Statements Atrial flutter with predominant 2:1 AV block Incomplete right bundle branch block Inferior Q waves noted Delayed R-wave progression Baseline wander in lead(s) V3 Compared to ECG 11/08/2017 09:24:18 2:1 AV block now present Incomplete right bundle-branch block now present Right bundle-branch block no longer present Electronically Signed On 11-09-2017 13:20:32 [place] HOLD by Nato Trinidad [email or web address] <ELECTRONICALLY SIGNED> By: Nato Trinidad MD, FACC 11/09/17 1320 0602 0602 Nato Trinidad MD, FACC /EPI
--- NOTE | 2017-11-09 13:21 | EKG ---
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 : 1940 Requested By: Dino Pires Order Number: [id number] Etienne MD: Nato Trinidad Measurements Intervals [place] Rate: 102 P: [place]: QRS: 54 QRSD: 112 T: -55 QT: 340 QTc: 443 Interpretive Statements Atrial fibrillation Ventricular premature complex Incomplete right bundle branch block Inferior Q waves noted Compared to ECG 11/08/2017 09:24:18 Ventricular premature complex(es) now present Incomplete right bundle-branch block now present Atrial flutter no longer present Right bundle-branch block no longer present Electronically Signed On 11-09-2017 13:20:51 DOFFER by Nato Trinidad [email or web address] <ELECTRONICALLY SIGNED> By: Nato Trinidad MD, FACC 11/09/17 1320 0603 0603 Nato Trinidad MD, FAC /EPI
--- NOTE | 2017-11-09 14:46 | NUR ---
PATIENT ONLY OPEN EYS BUT NOT TO COMMAND OFF SEDATION. REMAINED OFF SEDATION FROM 0740 TO 1430 AND BECAME TACHY AND BLOOD PRESSURE INCREASED. UNABLE TO DO WEANING TRIAL AT THIS TIME. FENTANYL RESTARTED, WILL CONTINUE TO MONTIOR.
--- NOTE | 2017-11-09 15:42 | NUR ---
RE: PHARMACY TO MANAGE TPN. TPN DAY 2, WEIGHT 115.1 KG, CRRT CONTINUES, NA: 136, K: 5.0, CL: 101, CO2: 26, GLUCOSE: 266, CA: 8.2, M.2, PHOS: 4.3. WILL ADVANCE TPN RATE TO GOAL RATE OF 80 ML/HR. ADDING INSULIN TO TPN (10 UNITS/LITER) + SLIDING SCALE. CALCIUM CONTINUES TO BE SUPPLEMENTED VIA IVPB (NOTE ALBUMIN RE: CORRECTED CALCIUM). WILL FOLLOW. THANK YOU.
[2017-11-09 15:56] LABS: ALBUMIN 3.7 g/dL (3.4-5.0); DIRECT BILIRUBIN 0.9 mg/dL (<0.1-0.3); TOTAL BILIRUBIN 1.6 mg/dL (<0.1-1.0); TOTAL PROTEIN 5.7 g/dL (6.4-8.2)
[2017-11-09 16:10] LABS: ABSOLUTE LYMPHOCYTES 0.2 thou/uL (0.8-5.3); ABSOLUTE NEUTROPHILS 15.1 thou/uL (1.6-8.1)
[2017-11-09 16:11] LABS: ABSOLUTE MONOCYTES 0.6 thou/uL (0.0-1.2)
[2017-11-09 16:13] LABS: ANISOCYTOSIS 1+; MICROCYTES 1+; POIKILOCYTOSIS 1+
[2017-11-09 17:00] LABS: HEMOGLOBIN 10.3 gm/dL (14.0-18.0); MCH 27.6 pg (26.0-34.0); MCHC 32.2 g/dL (28.0-37.0); MCV 85.6 fL (80.0-100.0); MPV 9.9 fl. (7.2-11.1); RBC 3.74 mil/uL (4.50-6.00); RDW-CV 19.6 % (10.5-14.5); WBC 13.9 thou/uL (4.0-11.0)
[2017-11-09 17:18] LABS: CALCIUM 8.7 mg/dL (8.5-10.1); CREATININE 2.4 mg/dL (0.6-1.3); MAGNESIUM 2.2 mg/dL (1.8-2.4); PHOSPHORUS* 4.7 mg/dL (2.5-4.9); POTASSIUM 5.1 mmol/L (3.5-5.1)
--- NOTE | 2017-11-09 18:05 | NUR ---
PATIENT PROGRESSED WELL TOWARDS GOALS TODAY, REMAINED OFF LEVO FOR BP SUPPORT, DID GET TACHY AND BLOOD PRESSURE GOT HIGH BUT SEDATION WAS RESUMED AND PATIENT IS CALM, DOESNT FOLLOW COMMANDS BUT OPENS EYES AND BITES DOWN ON TUBE. WILL TRY FOR WEANING TRIAL TOMORROW, SIGNIFICANT OTHER UPDATED ON STATUS. REMAINS ON CRRT AT THIS TIME, NO APPARENT PAIN. PUNCHER AND FASTENER IN PLACE, BED ALARM ON, BED IN LOWEST POSITION, WILL CONTINUE TO MONTIOR.
[2017-11-09 20:32] LABS: HEMATOCRIT 32.6 % (42.0-52.0); HEMOGLOBIN 10.5 gm/dL (14.0-18.0); MCH 27.6 pg (26.0-34.0); MCHC 32.2 g/dL (28.0-37.0); MCV 85.9 fL (80.0-100.0); MPV 10.2 fl. (7.2-11.1); RBC 3.79 mil/uL (4.50-6.00); RDW-CV 19.5 % (10.5-14.5); WBC 13.7 thou/uL (4.0-11.0)
[2017-11-09 20:41] LABS: APTT 21.2 Seconds (25.0-31.3); PROTIME 14.7 Seconds (9.20-11.50)
[2017-11-09 20:42] LABS: INR 1.5
[2017-11-09 20:43] LABS: CALCIUM 8.8 mg/dL (8.5-10.1); CREATININE 2.4 mg/dL (0.6-1.3); MAGNESIUM 2.3 mg/dL (1.8-2.4); PHOSPHORUS* 4.8 mg/dL (2.5-4.9); POTASSIUM 5.6 mmol/L (3.5-5.1)
--- NOTE | 2017-11-10 02:37 | NUR ---
ATTEMPTED TO WEAN PT FROM SEDATION MEDICATION. TURNED VERSED OFF AND FENTANYL GTT DOWN TO 50. PT WOULD OPEN EYES AND CLENCH MOUTH WITH ORAL CARE. PTS HR INCREASED TO 150 AND BP INCREASED TO 200'S/100'S. TURNED VERSED BACK ON. PT UNABLE TO BE WEANED ON SEDATION MEDICATION AT THIS TIME.
[2017-11-10 03:39] LABS: BE -2.7 mmol/L (-2 to +3); HCO3 22.5 mmol/L (22.0-26.0); PCO2 40.5 mmHg (35.0-45.0); PO2 111.1 mmHg (75.0-100.0); pH 7.362 (7.340-7.450)
[2017-11-10 04:55] LABS: HEMATOCRIT 30.4 % (42.0-52.0); HEMOGLOBIN 9.8 gm/dL (14.0-18.0); MCH 27.3 pg (26.0-34.0); MCHC 32.1 g/dL (28.0-37.0); MCV 85.2 fL (80.0-100.0); MPV 9.8 fl. (7.2-11.1); RBC 3.57 mil/uL (4.50-6.00); RDW-CV 19.8 % (10.5-14.5); WBC 13.4 thou/uL (4.0-11.0)
[2017-11-10 05:00] LABS: CALCIUM 8.9 mg/dL (8.5-10.1); CREATININE 2.3 mg/dL (0.6-1.3); MAGNESIUM 2.2 mg/dL (1.8-2.4); PHOSPHORUS* 4.2 mg/dL (2.5-4.9); POTASSIUM 5.4 mmol/L (3.5-5.1)
--- NOTE | 2017-11-10 08:30 | NUR ---
aaliyah torres orders to hold potassium chloride and potassium phosphate obtained. orders for ct of head, chest, and abd area obtained. will coordinate with rt nad ct. dialysis nurse clement will be back to [facility] this afternoon to restart pt on CRRT. will return blood and take pt off CRRT about 1430.
[2017-11-10 09:11] LABS: HEMATOCRIT 29.3 % (42.0-52.0); HEMOGLOBIN 9.5 gm/dL (14.0-18.0); MCH 27.3 pg (26.0-34.0); MCHC 32.6 g/dL (28.0-37.0); MCV 83.9 fL (80.0-100.0); MPV 9.7 fl. (7.2-11.1); RBC 3.49 mil/uL (4.50-6.00); RDW-CV 19.8 % (10.5-14.5); WBC 13.7 thou/uL (4.0-11.0)
[2017-11-10 09:25] LABS: CALCIUM 9.3 mg/dL (8.5-10.1); CREATININE 2.1 mg/dL (0.6-1.3); MAGNESIUM 2.2 mg/dL (1.8-2.4); PHOSPHORUS* 3.5 mg/dL (2.5-4.9); POTASSIUM 5.2 mmol/L (3.5-5.1)
--- NOTE | 2017-11-10 12:40 | NUR ---
pt bp keeps elevating 160's to high 170's systolic.cardiology called orders recieved for prn hydralazine.
[2017-11-10 13:10] LABS: HEMATOCRIT 29.4 % (42.0-52.0); HEMOGLOBIN 9.5 gm/dL (14.0-18.0); MCH 27.6 pg (26.0-34.0); MCHC 32.3 g/dL (28.0-37.0); MCV 85.6 fL (80.0-100.0); MPV 9.8 fl. (7.2-11.1); RBC 3.43 mil/uL (4.50-6.00); RDW-CV 19.3 % (10.5-14.5)
--- NOTE | 2017-11-10 13:10 | NUR ---
prn hydralazine given for systolic bp's 160's to 170's.
[2017-11-10 13:25] LABS: CALCIUM 9.4 mg/dL (8.5-10.1); CREATININE 2.1 mg/dL (0.6-1.3); MAGNESIUM 2.3 mg/dL (1.8-2.4); PHOSPHORUS* 3.9 mg/dL (2.5-4.9); POTASSIUM 5.4 mmol/L (3.5-5.1)
--- NOTE | 2017-11-10 13:30 | NUR ---
pt heart rate 110's and irregular.pt bp 207/96. increased fentanyl gtt to 100 mcgs per hour.
--- NOTE | 2017-11-10 13:45 | NUR ---
pt heart rate remains in 110's with bp back up to 200's over 80's per art line. versed gtt increased to 4 mgs/hr.
--- NOTE | 2017-11-10 14:00 | NUR ---
versed gtt incresed to 6 mgs/hr, ekg obtained results remains in a flutter. heart rate 80's, bp 140's to 160's. will continue to monitor frequently.
--- NOTE | 2017-11-10 14:10 | NUR ---
RE: PHARMACY TO MANAGE TPN ORDERS: DR. MULLIGAN MONITORING/ADUSTING TPN PER ORDER. PHARMACY WILL DEFER AND SIGN OFF FROM TPN MAINTENANCE. THANK YOU.
--- NOTE | 2017-11-10 14:30 | NUR ---
pt heart rate continue to be irregular ranging from upper 90's to 120's. cardiology called made aware of changes and persistant hypertension. cardizem gtt bolus and gtt ordered.
--- NOTE | 2017-11-10 14:45 | NUR ---
dr walker called updated on change in pt status at this time order recieved to hold off on ct's till am if pt is stable.
--- NOTE | 2017-11-10 15:10 | NUR ---
cardizem bolus given and gtt started pt hr 70's with bp 110's/60. versed gtt decreased from 6 mg/hr to 4 mg will continue decreased both sedation meds.
--- NOTE | 2017-11-10 16:48 | NUR ---
had reduced fentanyl gtt to 50 mcgs about an hour ago, noted at this time pt is abd breathing 02 sats 92%, bp 161/73, heart rate elevated back up to high 80's to low 90's at times, resp 13. will increase fentanyl gtt back to 50 mcgs.
[2017-11-10 17:04] LABS: HEMATOCRIT 30.4 % (42.0-52.0); HEMOGLOBIN 9.7 gm/dL (14.0-18.0); MCH 27.7 pg (26.0-34.0); MCHC 31.9 g/dL (28.0-37.0); MCV 86.7 fL (80.0-100.0); MPV 9.7 fl. (7.2-11.1); RBC 3.51 mil/uL (4.50-6.00); RDW-CV 19.8 % (10.5-14.5); WBC 18.1 thou/uL (4.0-11.0)
--- NOTE | 2017-11-10 17:08 | NUR ---
since fentanyl increased to 100 mcgs, 02 sats 95%, bp 134/57, hr 72.
[2017-11-10 17:16] LABS: CALCIUM 9.4 mg/dL (8.5-10.1); CREATININE 2.1 mg/dL (0.6-1.3); MAGNESIUM 2.3 mg/dL (1.8-2.4); PHOSPHORUS* 4.4 mg/dL (2.5-4.9); POTASSIUM 5.8 mmol/L (3.5-5.1)
--- NOTE | 2017-11-10 19:30 | NUR ---
PT REMANS ON CRRT. FENTANYL, VERSED AND CARDIZEM GTTS REMIAN IN USE. RIGHTGROIN DIALYSIS SITE REMANS OOZING SLIGHT AMOUNT OF RED DRAINAGE WITH SANDBAG IN PLACE. PT HAS ONLY HAD 10 ML OF URINE OUT. PT HEART RATE REMANS IN 70'S WITH SBP IN THE 130'S. PT CONTINUE TO CLAMP DOWN WITH MOUTH CARE. PT WEIGHT SHIFTRTHROUGH OUT SHIFT. SIGNIFIGANT OTHER HAS CALLED TWICE CHECKING ON PT. PM SHIFT REPORT GIVEN. ALSO INSTUCTED THAT IF DIOALYSIS MACHINE WOULD GO DOWN DURING SHIFT AND PT IS STABLE THAT CT OF HEAD, CHEST, AND ABD ARE NEEDED.
[2017-11-10 21:12] LABS: HEMATOCRIT 28.3 % (42.0-52.0); HEMOGLOBIN 9.1 gm/dL (14.0-18.0); MCH 27.8 pg (26.0-34.0); MCHC 32.1 g/dL (28.0-37.0); MCV 86.7 fL (80.0-100.0); MPV 10.7 fl. (7.2-11.1); RBC 3.26 mil/uL (4.50-6.00); RDW-CV 19.8 % (10.5-14.5); WBC 13.9 thou/uL (4.0-11.0)
[2017-11-10 21:21] LABS: CALCIUM 9.2 mg/dL (8.5-10.1); MAGNESIUM 2.4 mg/dL (1.8-2.4); POTASSIUM 5.5 mmol/L (3.5-5.1)
[2017-11-10 22:00] VITALS: BP 134/61
[2017-11-11] VITALS (9 sets, daily range): BP systolic 102–149; BP diastolic 52–69
[2017-11-11 01:29] LABS: CALCIUM 9.5 mg/dL (8.5-10.1); CREATININE 2.1 mg/dL (0.6-1.3); MAGNESIUM 2.4 mg/dL (1.8-2.4); PHOSPHORUS* 4.1 mg/dL (2.5-4.9); POTASSIUM 5.4 mmol/L (3.5-5.1)
[2017-11-11 04:25] LABS: CALCIUM 9.2 mg/dL (8.5-10.1); CREATININE 2.4 mg/dL (0.6-1.3); MAGNESIUM 2.4 mg/dL (1.8-2.4); PHOSPHORUS* 4.3 mg/dL (2.5-4.9); POTASSIUM 5.7 mmol/L (3.5-5.1)
[2017-11-11 04:52] LABS: CREATININE 2.4 mg/dL (0.6-1.3); POTASSIUM 5.7 mmol/L (3.5-5.1)
[2017-11-11 04:53] LABS: CALCIUM 9.2 mg/dL (8.5-10.1)
[2017-11-11 05:15] LABS: TOTAL BILIRUBIN 1.5 mg/dL (<0.1-1.0)
[2017-11-11 05:16] LABS: ALBUMIN 4.6 g/dL (3.4-5.0); TOTAL PROTEIN 5.2 g/dL (6.4-8.2)
--- NOTE | 2017-11-11 06:50 | NUR ---
MINIMAL PROGRESSION TOWARDS GOALS, SEE COMPUTERIZED ASSESSMENT DOCUMENTATION FOR FURTHER DETAILS, TRANSPORTED WITH RT AND X2 RN TO CT OF ABDOMEN, HEAD, AND CHEST, ABDOMINAL BREATHING AGAINST VENTILATED RESPERATIIONS WHEN TRANSFERING BACK TO PT ROOM, DESATURATION DOWN TO HIGH 80'S WITH GOOD PLETH NOTED, RT USED AMBU-BAG TO ASSIST WITH OXYGENATION, REMAINS ON FENTANYL AND VERSED GTT FOR SEDATION VIA INFUSION PUMP, CRRT CLOTTED OFF DURING NOC, PER DR GUZMAN WILL BE RESTARTED THIS AM. RN AT BEDSIDE 1:[address] SCANS.
--- NOTE | 2017-11-11 09:00 | NUR ---
CRRT RESTARTED HR 60'S CARDIZEM GTT TURNED OFF.ORDERS RECIEVED FOR NEUROLOGY AND GASTROINTESTINAL CONSULTS CALLED BY CLINICAL ACCOUNT SPECIALIST WITH EEG TO BE PREFORMED PER DR LUCERO. PT WILL CLAMP DOWN WITH MOUTHCARE BUT THERE ARE NO OTHER MOVEMENTS.O/G TO LIS WITH DK GREEN EMESIS NOTED.
[2017-11-11 09:22] LABS: ABSOLUTE LYMPHOCYTES 0.3 thou/uL (0.8-5.3); ABSOLUTE MONOCYTES 1.2 thou/uL (0.0-1.2); EOSINOPHILS 0.1 %; HEMATOCRIT 26.6 % (42.0-52.0); HEMOGLOBIN 8.6 gm/dL (14.0-18.0); LYMPHOCYTES 1.9 %; MCH 27.8 pg (26.0-34.0); MCHC 32.4 g/dL (28.0-37.0); MCV 85.8 fL (80.0-100.0); MPV 10.1 fl. (7.2-11.1); NUCLEATED RBCS 1 /100WBC; PLATELET COUNT* 59 thou/uL (150-400); RDW-CV 20.6 % (10.5-14.5); WBC 15.5 thou/uL (4.0-11.0)
[2017-11-11 09:29] LABS: CALCIUM 9.4 mg/dL (8.5-10.1); CREATININE 2.8 mg/dL (0.6-1.3); MAGNESIUM 2.5 mg/dL (1.8-2.4); PHOSPHORUS* 4.5 mg/dL (2.5-4.9); POTASSIUM 5.5 mmol/L (3.5-5.1)
[2017-11-11 10:25] LABS: PLATELET ESTIMATE DECREASED
[2017-11-11 10:26] LABS: OVALOCYTES 1+
[2017-11-11 10:27] LABS: ANISOCYTOSIS 1+; HYPOCHROMASIA Occasional; POIKILOCYTOSIS 1+; SCHISTOCYTES Occasional
--- NOTE | 2017-11-11 11:05 | NUR ---
PT REMAINS ON VENT. NEURO AND GI CONSULTS. NO FAMILY HERE AT THIS TIME. CASE MGT TO CONTINUE TO FOLLOW,
[2017-11-11 13:30] LABS: HEMATOCRIT 26.8 % (42.0-52.0); HEMOGLOBIN 8.7 gm/dL (14.0-18.0); MCH 28.1 pg (26.0-34.0); MCHC 32.3 g/dL (28.0-37.0); MCV 87.1 fL (80.0-100.0); MPV 10.1 fl. (7.2-11.1); RBC 3.08 mil/uL (4.50-6.00); RDW-CV 20.5 % (10.5-14.5); WBC 13.9 thou/uL (4.0-11.0)
[2017-11-11 13:40] LABS: CALCIUM 9.5 mg/dL (8.5-10.1); CREATININE 2.6 mg/dL (0.6-1.3); MAGNESIUM 2.5 mg/dL (1.8-2.4); POTASSIUM 5.5 mmol/L (3.5-5.1)
--- NOTE | 2017-11-11 15:39 | EKG ---
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 : 1940 Requested By: Ap Taylor Order Number: [id number] Etienne MD: Nato Trinidad Measurements Intervals [place] Rate: 99 P: [place]: QRS: 68 QRSD: 115 T: -24 QT: 337 QTc: 433 Interpretive Statements Atrial flutter with predominant 3:1 AV block Incomplete right bundle branch block Compared to ECG 11/09/2017 06:03:24 AV block, advanced (high-grade) now present Atrial fibrillation no longer present Ventricular premature complex(es) no longer present Inferior Q waves no longer present Q waves no longer present Electronically Signed On 11-11-2017 15:39:34 FRESH FOOD MANAGER by Nato Trinidad [email or web address] <ELECTRONICALLY SIGNED> By: Nato Trinidad MD, FACC 11/11/17 1539 1350 1350 Nato Trinidad MD, FACC /EPI
[2017-11-11 17:16] LABS: HEMATOCRIT 26.9 % (42.0-52.0); HEMOGLOBIN 8.7 gm/dL (14.0-18.0); MCH 28.1 pg (26.0-34.0); MCHC 32.4 g/dL (28.0-37.0); MCV 86.6 fL (80.0-100.0); MPV 10.1 fl. (7.2-11.1); RBC 3.1 mil/uL (4.50-6.00); RDW-CV 20.3 % (10.5-14.5); WBC 12.5 thou/uL (4.0-11.0)
[2017-11-11 17:24] LABS: CALCIUM 9.5 mg/dL (8.5-10.1); CREATININE 2.5 mg/dL (0.6-1.3); MAGNESIUM 2.4 mg/dL (1.8-2.4); PHOSPHORUS* 4.4 mg/dL (2.5-4.9); POTASSIUM 5.7 mmol/L (3.5-5.1)
--- NOTE | 2017-11-11 19:26 | NUR ---
PT HAS HAD AN UNEVENTFUL DAY. CARDIZEN GTT REMANS OFF. PT WEIGHT SHIFT THROUGH SHIFT. PT ANURIC AT THIS TIME. N/C WAS PATENT FOR 420 DK GREEN EMESIS. GI HERE INCRESED REGLAN TO 10 MG EVERY 6 HOURS. PT TOLERATING 200 ML OF FLUID REMOVAL. HAD CALLED EARLIER AND UPDATED ON PT STATUS AND TOLD THAT PT IS NOT PROGRESSING WELL. WAS ALSO TOLD THAT GIVE HIM A COUPLE OF DAYS AND SEE IF HIS PROGRESS IS ANY BETTER, THEN STATED WHAT HAPPENS IN A COUPLE OF DAYS , SHE WAS THEN TOLD THAT WORRY ABOUT THAT IN A COUPLE OF DAYS AND TO KEEP PRAYING FOR PT.PM SHIFT REPORT GIVEN. PT IS NOT PROGRESSING TOWARDS GOALS.
--- NOTE | 2017-11-11 22:14 | NUR ---
SPOKE WITH DR HOLLY R/T CRRT CLOTTING OFF, NEW ORDER TO RESTART CRRT IN AM.
[2017-11-12] VITALS (21 sets, daily range): BP systolic 89–158; BP diastolic 48–72
[2017-11-12 05:30] LABS: ABSOLUTE LYMPHOCYTES 0.2 thou/uL (0.8-5.3); ABSOLUTE MONOCYTES 0.9 thou/uL (0.0-1.2); ABSOLUTE NEUTROPHILS 13.3 thou/uL (1.6-8.1); HEMATOCRIT 26.7 % (42.0-52.0); HEMOGLOBIN 8.6 gm/dL (14.0-18.0); LYMPHOCYTES 1.1 %; MCH 27.7 pg (26.0-34.0); MCHC 32.2 g/dL (28.0-37.0); MCV 86.1 fL (80.0-100.0); MONOCYTES 6.4 %; MPV 10.1 fl. (7.2-11.1); NUCLEATED RBCS 1 /100WBC; PLATELET COUNT* 70 thou/uL (150-400); POLYS 92.5 %; RBC 3.09 mil/uL (4.50-6.00); RDW-CV 20.4 % (10.5-14.5); WBC 14.3 thou/uL (4.0-11.0)
[2017-11-12 05:40] LABS: BE -4.1 mmol/L (-2 to +3); PO2 121.7 mmHg (75.0-100.0)
[2017-11-12 05:42] LABS: PCO2 52.5 mmHg (35.0-45.0)
[2017-11-12 05:55] LABS: ALBUMIN 4.2 g/dL (3.4-5.0); CALCIUM 9.3 mg/dL (8.5-10.1); TOTAL BILIRUBIN 1.4 mg/dL (<0.1-1.0)
[2017-11-12 06:00] LABS: POTASSIUM 6.1 mmol/L (3.5-5.1)
--- NOTE | 2017-11-12 07:14 | NUR ---
ASSUMED CARE OF PATIENT AFTER RECEIVING BEDSIDE REPORT. ASSESSMENT COMPLETED. VSS. PATIENT REMAINS SEDATED ON VENTILATOR. PLASTIC TOOL MAKER IN PLACE, AFLUTTER NOTED. FLY WINDER PRESENT AND WILL ASSESS TEMPORARY DIALYSIS CATHETER SITE TO DETERMINE IF CRRT WILL BEGIN THIS AM. ELECTROLYTES ARE ELEVATED AND BLOOD SUGAR REMAINS IN THE 300'S IN SPITE OF VERY HIGH SLIDING SCALE. WILL CONTINUE TO MONITOR.
--- NOTE | 2017-11-12 08:40 | NUR ---
MTN NOTIFIED OF GCS OF 3. SEDATION STOPPED TO SEE IF PATIENT WILL BECOME MORE RESPONSIVE. PATIENT ON MINIMAL SEDATION AT THE TIME OF SEDATION BEING STOPPED. WILL CONTINUE TO EVALUATE GCS AND RESPONSIVENESS. IF PATIENT BECOMES AGITATED SEDATION WILL BE RESTARTED. WILL CONTINUE TO MONITOR.
--- NOTE | 2017-11-12 09:11 | CON ---
[address] [address] CONSULTATION Name: BRADY OCHOA SR Room: [address] IN [facility].#: [id number] Admission: 11/02/17 Attend Phys: Dino Pires, Discharge: Date of : 44 Report #: [id number] THIS REPORT FOR: //name// CC: Sami Pires DATE OF SERVICE: 11/11/2017 HISTORY OF PRESENT ILLNESS: This is a 77-year-old male patient who was seen by me to prognosticate him neurologically. The patient is unable to provide any history and he is pretty much unresponsive. He had a huge record and I reviewed part of it. He has multisystem problems for which he is admitted. Record indicates that he had acute respiratory failure. He has atrial fibrillation and atrial flutter. He had shocked liver, shocked kidney. I talked to the nurses and the best I can tell, he is not showing any response and it does not look like he is waking up any. I reviewed the Emergency Room note and looks like he also had a prior history of a GI bleed. So, from all indication it looks like he has a multisystem problem. All this history is from the records. The patient is unable to provide any history and no family member is available. The patient was discussed with the nurses as mentioned above. This is the relevant 14-point review of systems, which I can get from the record. PAST MEDICAL HISTORY: As described above. FAMILY HISTORY: Unavailable. SOCIAL HISTORY: Unavailable except notes indicate that he does not drink alcohol. PHYSICAL EXAMINATION: NEUROLOGICAL: When I saw this patient, the patient did not have any response at all. He is a reasonably well-developed individual. He does not have any dysmorphic features of eyes, ears and face. His pupil does not appear to be reactive. CARDIOVASCULAR: He has lot of cardiac problem as described above. VITAL SIGNS: His blood pressure is 102/58, temperature is 97.2 and pulse is 68. LABORATORY DATA: White count is 12.5. He is anemic at hemoglobin of 8.7. His last GFR is 25. His glucose is 379. He did have a CT scan of the head, which was reviewed and that did not show any edema. IMPRESSION: This patient appeared to be severely encephalopathic. We will see what an electroencephalogram show in this patient. If further prognostication is desired, we may have to do more imaging study in this patient but first, we will try to get some information from the electroencephalogram and try to reach [place] [address] CONSULTATION Name: RBADY OCHOA SR Room: [address]#: [id number] Admission: 11/02/17 Attend Phys: Dino Pires, Discharge: Date of : 44 Report #: [id number] RECOMMENDATIONS: 1. EEG. 2. On the basis of EEG, we will decide about further workup we need to do in this patient. Thank you very much for this referral and will follow the patient along with you. <ELECTRONICALLY SIGNED> By: Matt Gonzales MD 11/12/17 0911 [id number] Gonzales MD /nt
--- NOTE | 2017-11-12 09:11 | EEG ---
[address] [address] EEG STUDY REPORT Name: BRADY OCHOA SR Room: [address] IN .#: [id number] Admission: 11/02/17 Attend Phys: Dino Pires, Discharge: Date of : 44 Report #: [id number] THIS REPORT FOR: //name// CC: Sami Pires DATE OF SERVICE: 11/11/2017 REASON FOR STUDY: This patient is being evaluated for the possibility of hypoxic encephalopathy as well as prognosticating the patient. INTERPRETATION: This patient's EEG is masked by a lot of artifact and is difficult to interpret. The best I can tell, it demonstrates cortical activity for about 6-7 Hz but that is difficult to separate from the artifact. Photic stimulation is unremarkable. IMPRESSION: No definite impression can be formed on the basis of this electroencephalogram because so much artifact is present. However, it does appear to be showing some cortical activity and clinical correlation is recommended. Thank you very much for this referral. <ELECTRONICALLY SIGNED> By: Matt Gonzales MD 11/12/17 0911 [id number] Gonzales MD /nt
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
[2017-11-12 15:57] LABS: BE 0.6 mmol/L (-2 to +3); HCO3 25.2 mmol/L (22.0-26.0); PCO2 40.2 mmHg (35.0-45.0); pH 7.415 (7.340-7.450)
--- NOTE | 2017-11-12 16:56 | NUR ---
PATIENT HAD TEMPORARY DIALYSIS CATHETER REPLACED. PATIENT TOLERATED WELL BUT IT WAS A DIFFICULT STICK. PREVIOUS DIALYSIS CATHETER REMOVED, PRESSURE APPLIED, BLEEDING STOPPED, AND GAUZE DRESSING WITH TRANSPARENT DRESSING APPLIED. SEDATION STOPPED AT 0800, PATIENT NOT RESPONSIVE AT THIS TIME. MTN REMAINS ON CASE. PATIENT AFEBRILE THROUGHOUT SHIFT. HEMODIALYSIS COMPLETED THIS SHIFT, PATIENT TOLERATED WELL. BEDSIDE REPORT TO BE GIVEN TO ONCOMING SHIFT.
[2017-11-13] VITALS (17 sets, daily range): BP systolic 111–170; BP diastolic 53–87
[2017-11-13 05:59] LABS: BE -2.9 mmol/L (-2 to +3); HCO3 22.8 mmol/L (22.0-26.0); PCO2 43.5 mmHg (35.0-45.0); pH 7.338 (7.340-7.450)
[2017-11-13 06:47] LABS: HEMATOCRIT 26.6 % (42.0-52.0); HEMOGLOBIN 8.6 gm/dL (14.0-18.0); MCH 27.7 pg (26.0-34.0); MCHC 32.5 g/dL (28.0-37.0); MCV 85.3 fL (80.0-100.0); MPV 9.9 fl. (7.2-11.1); NUCLEATED RBCS 0 /100WBC; PLATELET COUNT* 89 thou/uL (150-400); RBC 3.12 mil/uL (4.50-6.00); RDW-CV 20.2 % (10.5-14.5)
[2017-11-13 06:56] LABS: ALBUMIN 3.8 g/dL (3.4-5.0); CALCIUM 9.4 mg/dL (8.5-10.1); CREATININE 3.7 mg/dL (0.6-1.3); MAGNESIUM 2.8 mg/dL (1.8-2.4); PHOSPHORUS* 4.8 mg/dL (2.5-4.9); POTASSIUM 5.2 mmol/L (3.5-5.1); TOTAL BILIRUBIN 1.8 mg/dL (<0.1-1.0); TOTAL PROTEIN 5.7 g/dL (6.4-8.2)
[2017-11-13 07:14] LABS: ABSOLUTE LYMPHOCYTES 0.3 thou/uL (0.8-5.3); ABSOLUTE MONOCYTES 1.5 thou/uL (0.0-1.2); ABSOLUTE NEUTROPHILS 15.1 thou/uL (1.6-8.1); PLATELET ESTIMATE DECREASED
[2017-11-13 07:15] LABS: ANISOCYTOSIS 1+; HYPOCHROMASIA Occasional; OVALOCYTES 1+; POIKILOCYTOSIS 1+; POLYCHROMASIA Occasional; SCHISTOCYTES Occasional
--- NOTE | 2017-11-13 10:39 | CON ---
[address] [address] CONSULTATION Name: BRADY OCHOA SR Room: [address] IN [facility]#: [id number] Admission: 11/02/17 Attend Phys: Dino Pires, Discharge: Date of : 44 Report #: [id number] THIS REPORT FOR: //name// CC: Sami Pires DATE OF SERVICE: 11/03/2017 REQUESTING PHYSICIAN: Wu Reinoso M.D. REASON FOR CONSULTATION: Acute kidney injury. HISTORY OF PRESENT ILLNESS: The patient is a 77-year-old gentleman with medical history significant for coronary artery disease status post coronary artery bypass graft surgery, history of morbid obesity, history of diabetes mellitus type 2. He presents to the hospital on 11/02/2017 with complaints of shortness of breath and cough for about a week prior to admission. His states that he was not doing well ____ until 2 days prior to admission. So, on admission, he was diagnosed with COPD exacerbation, bronchitis, CHF and was examined by contract lead and diagnosed with pneumonia. Next day after admission, he became very hypoxic, hypotensive where he actually had cardiopulmonary arrest, and now he is in intensive care unit, intubated on 1 pressor, not making urine. PAST MEDICAL HISTORY: 1. Significant for coronary artery disease with history of bypass graft surgery. 2. History of chronic obstructive pulmonary disease. 3. History of morbid obesity. 4. History of diabetes mellitus type 2. 5. History of chronic kidney disease stage 3, baseline creatinine is somewhere between 1.3-1.5. We have never seen the patient before. SOCIAL HISTORY: He does have history of tobacco use and no alcohol abuse. FAMILY HISTORY: Noncontributory. REVIEW OF SYSTEMS: The patient is intubated at the time of my examination and he had shortness of breath and cough according to the records prior to that. PHYSICAL EXAMINATION: GENERAL: He is intubated and sedated. VITAL SIGNS: Blood pressure now is 108/62, heart rate 103, temperature 96.8. HEENT: Pupils are round. NECK: Fatty. LUNGS: Decreased air movements. CARDIOVASCULAR: [place] [address] CONSULTATION Name: BRADY OCHOA SR Room: [address]#: [id number] Admission: 11/02/17 Attend Phys: Dino Pires, Discharge: Date of : 42 Report #: [id number] ABDOMEN: Soft. LOWER EXTREMITIES: No edema. LABORATORY DATA: Most recent lab report revealed serum sodium 139, potassium 5.5, chloride 101, carbon dioxide 19, BUN 85, creatinine 3.5, calcium 7.3, lactic acid 5.5, he is receiving 2 liters boluses of the saline, hemoglobin is 10.9, white count of 19.6000. ASSESSMENT: A 77-year-old gentleman with chronic kidney disease, diabetes, coronary artery disease, COPD and obesity, admitted with respiratory failure. He had cardiopulmonary arrest, intubated in the Intensive Care Unit, septic, not making urine now. However, there is no immediate need for dialysis, ketoacidosis is not very severe. He is in bicarb drip. He is mildly hyperkalemic. At this point, I would like to follow him very closely. I will check another chemistries in 4 hours and then make a decision whether or not to put him on dialysis. So, at this point, we will monitor blood pressure intake, output, and labs. Thank you very much for asking my opinion on acute kidney injury of the patient. <ELECTRONICALLY SIGNED> By: Екатерина Ruiz MD 11/13/17 1039 [id number] [id number] Randolph MD /PMT
--- NOTE | 2017-11-13 11:36 | NUR ---
PATIENT CURRENTLY RECEIVING VANCOMYCIN 500MG Q12H PER DR. BOND. THE PATIENT HAS NOW SWITCHED FROM CRRT TO HEMODIALYSIS, SO VANCOMYCIN DOSE WILL BE ADJUSTED PER PHARMACY PROTOCOL. CURRENT LABS INCLDUE WBC=17.0, CR=3.7 AND DIALYSIS SCHEDULE IS TO BE DETERMINED. NEW DOSING WILL BE 500MG AFTER EACH DIALYSIS (DAILY FOR NOW). A TROUGH IS SCHEDULED FOR 11/16 PRIOR TO DIALYSIS AND PHARMACY WILL FOLLOW AND ADJUST NECESSARY.
--- NOTE | 2017-11-13 18:52 | NUR ---
RECEIVED REPORT FROM LAKESHA MENA. ASSESSMENTS CHARTED. AFEBRILE. PT NOT PROGRESSING TOWARDS GOALS. PT OFF SEDATION SINCE YESTERDAY. PT STILL IN FLUTTER. STILL INTUABTED AND SEDATED. TPN STILL INFUSING. SON OF THE PT CALLED AND WANTED TO INVOLVE CASE MANAGEMENT REGAURDING PT STATUS.
[2017-11-14] VITALS (13 sets, daily range): BP systolic 96–146; BP diastolic 61–81
[2017-11-14 04:39] LABS: CALCIUM 9.2 mg/dL (8.5-10.1); CREATININE 3.8 mg/dL (0.6-1.3); POTASSIUM 4.7 mmol/L (3.5-5.1)
--- NOTE | 2017-11-14 07:00 | NUR ---
POOR PROGRESSION TOWARDS GOALS, OPENS EYES WITH CARES, DOES NOT FOLLOW COMMANDS, NO VISUAL TRACKING, HYPERTENSIVE WITH PHYSICAL STIMULI THAT RESOLVES WHEN PHYSICAL STIMULI STOPPED SUCH REPOSITIONING, ORAL CARE, OR PHYSICAL ASSESSMENT BEING PROVIDED, TPN CONTINUES TRA 80CC/HR VIA INFUSION PUMP THROUGH CENTRAL LINE, AFIB/AFLUTTER TRACING HAM PUMPER, NO CHANGES BY RT TO VENTILATOR DURING SHIFT.
--- NOTE | 2017-11-14 12:15 | NUR ---
Lengthy discussion with Layla, pt's significant other, in the waiting room. They have been together for 9 years. Pt has 5 children from a previous marriage. He has no contact at all with one son, he has had limited contact with his other 4 children (Herbie, Cristóbal, Alta Umaña, and Amber). Layla said she has been calling them or they have been calling her to get information on how pt is doing. She said that over the years she and Mik have had discussions about what he would want done or not want done with care options. She said Mik was the one who made the decision that he wanted to be put on the ventilator this time. In the past he has said on more than one occassion that he would not want to be kept alive on machines, 'if he couldn't enjoy life then he wouldn't want to be around.' She said she thinks all of his children are upset that he is on the ventilator and 'they think I am just keeping him alive when he wouldn't want this.' Layla had long discussion with Dr. Nichols about pt's condition and plan of care. Unless the MRI shows something unexpected, Dr. Nichols suggests waiting several more days to see if pt shows any improvement before making a decision about continuing care or not. Layla in agreement. Layla will call pt's son Herbie to update him and ask him to call all his siblings. Asked Layla if she had DPOA or if pt had a living will, she intially said no. Then later she said when pt had his heart surgery at [facility]' about 4 years she had a piece of paper that she could make decisions for the pt. She said everything at home is packed up because they were planning on moving and she doesn't really know where that paper is now. Nursing notified and will request records from [facility] to see if there is a DPOA for Healthcare. Nursing updated on my discussion with Layla.
[2017-11-14 15:14] LABS: HEMATOCRIT 34.4 % (42.0-52.0); MCH 27.2 pg (26.0-34.0); MCHC 31.9 g/dL (28.0-37.0); MCV 85.1 fL (80.0-100.0); MPV 8.8 fl. (7.2-11.1); RBC 4.05 mil/uL (4.50-6.00); RDW-CV 20.6 % (10.5-14.5); WBC 28.3 thou/uL (4.0-11.0)
[2017-11-14 18:52] LABS: ALBUMIN 3.4 g/dL (3.4-5.0); CALCIUM 8.8 mg/dL (8.5-10.1); CREATININE 3.3 mg/dL (0.6-1.3); POTASSIUM 4.7 mmol/L (3.5-5.1); TOTAL BILIRUBIN 2.4 mg/dL (<0.1-1.0); TOTAL PROTEIN 5.7 g/dL (6.4-8.2)
[2017-11-15] VITALS (13 sets, daily range): BP systolic 110–178; BP diastolic 58–112
[2017-11-15 06:10] LABS: CALCIUM 9.3 mg/dL (8.5-10.1); CREATININE 4.1 mg/dL (0.6-1.3); POTASSIUM 4.9 mmol/L (3.5-5.1)
--- NOTE | 2017-11-15 08:55 | NUR ---
RECEIVED REPORT FROM LAKESHA ELLIS. ASSESSMENT CHARTED. AFEBRILE. PT HAS A LITTLE BLEEDING FROM TEMP DIALYSIS CATH SITE. DR GARCIA AWARE AND ORDERED US OF GROIN AND L. LEG. DR TORREZ AWARE AND WILL WITHHOLD DIALYSIS TODAY UNTIL A NEW LINE IS PLACED. TUBE FEEDING STILL GOING AND PT STILL ON VENT WITHOUT SEDATION. PT FOLLOWING SIMPLE COMMANDS. WILL CONTINUE TO MONITOR.
[2017-11-15 09:06] LABS: HCO3 22.8 mmol/L (22.0-26.0); PCO2 39.9 mmHg (35.0-45.0); PO2 105.3 mmHg (75.0-100.0); pH 7.374 (7.340-7.450)
[2017-11-15 09:07] LABS: BE -2.3 mmol/L (-2 to +3)
--- NOTE | 2017-11-15 17:00 | NUR ---
SPOKE WITH PT.'S S.O.,DEEP, AT BEDSIDE. SHE WAS WONDERING IF DPOA HAD BEEN FAXED BY [facility] YET. CM LOOKED IN CHART AND THERE WAS A DPOA FROM OF PT.'S, AND DEEP WAS HIS FIRST AGENT. COPIES X 3 GIVEN TO DEEP. SHE WAS HAPPY IT HAD ARRIVED. INFORMED LAKESHA KIM.
[2017-11-16] VITALS (22 sets, daily range): BP systolic 89–189; BP diastolic 49–100
[2017-11-16 06:02] LABS: BE -3.8 mmol/L (-2 to +3); HCO3 20.7 mmol/L (22.0-26.0); PO2 88.2 mmHg (75.0-100.0); pH 7.389 (7.340-7.450)
[2017-11-16 06:28] LABS: CALCIUM 9.1 mg/dL (8.5-10.1); POTASSIUM 5.8 mmol/L (3.5-5.1)
[2017-11-16 06:29] LABS: CREATININE 5.9 mg/dL (0.6-1.3)
--- NOTE | 2017-11-16 06:45 | NUR ---
PT ON CARDIZEM FOR AFIB WITH A HR OF 140, BP 180'S/100'S, RESPIRATIONS 40'S. PT GIVEN FENTANYL AND VERSED TO ASSIST WITH RESPIRATIONS.
--- NOTE | 2017-11-16 07:42 | NUR ---
ASSUMED CARE OF PATIENT AFTER RECEIVING BEDSIDE REPORT. ASSESSMENT COMPLETED, VSS. PATIENT NOT IN RESTRAINTS CURRENTLY. PATIENT OPENS EYES TO VERBAL COMMAND BUT DOES NOT FOLLOW COMMANDS. NO PURPOSEFUL MOVEMENT NOTED. HEMODIALYSIS BEING SET UP WITH AN EEG TO FOLLOW. PATIENT MAKING SOME URINE. CARDIZEM GTT CURRENTLY INFUSING, AFIB NOTED WITH HEART RATE IN THE 80'S. RN WILL ATTEMPT TO TITRATE DOWN. REGIONAL PROPERTY MANAGER IN PLACE. BED ALARM ON. CALL LIGHT WITHIN REACH. RN ATTEMPTED TO INSTRUCT PATIENT ON USING CALL LIGHT, PATIENT NOT READY TO LEARN. WILL CONTINUE TO MONITOR.
--- NOTE | 2017-11-16 09:23 | NUR ---
VANCOMYCIN PHARMACY TO MANAGE: PATIENT IS BEING TREATED FOR SEPSIS/ASPIRATION PNEUMONIA. SCR=5.9, ON HD (NOT ON A SCHEDULE YET), TEMP=37.3. PATIENT HAS BEEN RECEIVING VANCOMCYIN 500 MG IV AFTER DIALYSIS. A RANDOM LEVEL WAS DRAWN TODAY WITH A RESULT OF 31 MCG/ML WHICH IS ABOVE GOAL OF 15-20 MCG/ML. PLAN IS TO HOLD DOSING AND DRAWN A 24 HOUR RANDOM LEVEL TOMORROW 11/17 PRIOR TO DIALYSIS. DOSING WILL BE RESUMED ONCE LEVEL IS LESS THAN 20 MCG/ML. PHARMACY WILL CONTINUE TO FOLLOW AND MONITOR.
[2017-11-16 12:07] LABS: ALBUMIN 3.3 g/dL (3.4-5.0); TOTAL BILIRUBIN 1.8 mg/dL (<0.1-1.0); TOTAL PROTEIN 5.4 g/dL (6.4-8.2)
[2017-11-16 13:52] LABS: APTT 26.8 Seconds (25.0-31.3); INR 1.2
--- NOTE | 2017-11-16 17:54 | NUR ---
PATIENT HAD HEMODIALYSIS THIS MORNING, PATIENT TOLERATED WELL BUT DID HAVE SOME EPISODES OF HYPOTENSION DURING DIALYSIS. CARDIZEM GTT TITRATED OFF, HR HAS MAINTAINED BELOW 100 SINCE TITRATING OFF CARDIZEM. PATIENT WILL OPEN EYES BUT DOES NOT ANSWER QUESTIONS OR HAVE PURPOSEFUL MOVEMEMNTS. SIGNIFICANT OTHER STATES THAT PATIENT IS RESPONDING WITH YES AND NO ANSWERS TO HER. RN EXPLAINED THE TOLL IT CAN TAKE ON THE BODY BEING IN BED FOR 12 DAYS AND THAT DIALYSIS CAN ALSO MAKE PATIENTS TIRED AND THAT THE PATIENT MAY JUST BE EXHAUSTED. LIPASE NOTED TO HAVE SIGNIFICANT INCREASE, GI CONSULTED FOR POSSIBLE PANCREATITIS PER DR. RED. PATIENT DID PRODUCE SOME URINE. PATIENT TOLERATING TUBE FEEDING WELL. RESTRAINTS NOT IN PLACE FOR ALL OF SHIFT. ET TUBE ADVANCED PER DR. RED TO FIX A LEAK, LEAK WAS RESOLVED. BEDSIDE REPORT TO BE GIVEN TO ONCOMING SHIFT.
[2017-11-17] VITALS (22 sets, daily range): BP systolic 106–145; BP diastolic 45–87
[2017-11-17 03:37] LABS: HEMATOCRIT 23.8 % (42.0-52.0); MCHC 31.9 g/dL (28.0-37.0); MCV 84.8 fL (80.0-100.0); MPV 9.3 fl. (7.2-11.1); NUCLEATED RBCS 0 /100WBC; PLATELET COUNT* 92 thou/uL (150-400); RDW-CV 19.7 % (10.5-14.5); WBC 16.9 thou/uL (4.0-11.0)
[2017-11-17 03:38] LABS: HEMOGLOBIN 7.6 gm/dL (14.0-18.0)
[2017-11-17 03:58] LABS: ALBUMIN 2.7 g/dL (3.4-5.0); CALCIUM 8.3 mg/dL (8.5-10.1); CREATININE 5.4 mg/dL (0.6-1.3); MAGNESIUM 2.6 mg/dL (1.8-2.4); PHOSPHORUS* 6.8 mg/dL (2.5-4.9); POTASSIUM 5.1 mmol/L (3.5-5.1); TOTAL BILIRUBIN 1.3 mg/dL (<0.1-1.0); TOTAL PROTEIN 5.1 g/dL (6.4-8.2)
[2017-11-17 04:22] LABS: ABSOLUTE LYMPHOCYTES 0.5 thou/uL (0.8-5.3); ABSOLUTE MONOCYTES 0.5 thou/uL (0.0-1.2); ABSOLUTE NEUTROPHILS 15.9 thou/uL (1.6-8.1)
[2017-11-17 04:23] LABS: ANISOCYTOSIS 1+; PLATELET ESTIMATE DECREASED
--- NOTE | 2017-11-17 06:04 | NUR ---
PT REMAINS ON VENTILATOR, O2 SAT HAS REMAINED >92%. PT IS UNSEDATED, NO RESPONSE WHEN ASKED TO MOVE FINGERS BUT INTERMITTENTLY HE WILL NOD/SHAKE HIS HEAD WHEN ASKED YES/NO QUESTIONS AND THEREFORE ABLE TO INDICATE WHETHER HE HAD PAIN; PRN FENTANYL GIVEN ORDERED. TF INFUSING AT GOAL RATE OF 80ML/HR WITH RESIDUALS OF 5ML OR LESS. PT WAS INCONTINENT OF 2 LARGE LIQUID BM'S, PER DR MCKEON FLEXISEAL FMS WAS INSERTED DUE TO PRESENCE OF SKIN BREAKDOWN. WOUND CARE AND DRESSING CHANGES TO BILATERAL BUTTOCKS PERFORMED TWICE TONIGHT DUE TO CONTAMINATION BY LIQUID STOOLS. COMPLETE BED BATH PROVIDED. PT HAS BEEN TURNED Q2HR THROUGHOUT THE SHIFT.
--- NOTE | 2017-11-17 07:55 | NUR ---
ASSUMED CARE OF PATIENT AFTER RECEIVING BEDSIDE REPORT. ASSESSMENT COMPLETED, VSS. PATIENT MUCH MORE ALERT TODAY AND ANSWERING QUESTIONS APPROPRIATELY. ALTHOUGH VERY WEAK PATIENT WAS ABLE TO MOVE ALL EXTREMITIES ON COMMAND, COUGH ON COMMAND, AND LIFT HEAD OFF OF THE PILLOW. PATIENT NODDED AND SHOOK HEAD APPROPRIATELY. BED ALARM ON. CALL LIGHT WITHIN REACH. INSTRUMENT REPAIRER IN PLACE, AFIB NOTED. WILL CONTINUE TO MONITOR.
--- NOTE | 2017-11-17 08:33 | NUR ---
VANCOMYCIN PHARMACY TO MANAGE: PATIENT IS BEING TREATED FOR SEPSIS/PNEUMONIA. WBC= 16.9, SCR=5.4, ASSESSED DAILY FOR DIALYSIS, TEMP= 36.8. PATIENT HAD A SUPRATHERAPEUTIC LEVEL 11/16 OF 31 MCG/ML. DOSING WAS HELD AND PATIENT RECEIVED DIALYSIS 11/16. A RANDOM LEVEL WAS ORDERED FOR 11/17 AT 0700, IT WAS DRAWN AT 0320 WITH A RESULT OF 22 MCG/ML. IF DRAWN AT 0700 IT WOULD HAVE MOST LIKELY BEEN BELOW 20 MCG/ML. PLAN IS TO BEGIN DIALYSIS DOSING AGAIN WITH VANCOMYCIN 500 MG IV AFTER EACH DIALYSIS SESSION. A RANDOM LEVEL IS ORDERED FOR 11/20 AT 0700. PHARMACY WILL CONTINUE TO FOLLOW AND MONITOR.
[2017-11-17 11:27] LABS: BE -4.2 mmol/L (-2 to +3); HCO3 21.4 mmol/L (22.0-26.0); PCO2 41.5 mmHg (35.0-45.0); PO2 110.5 mmHg (75.0-100.0); pH 7.331 (7.340-7.450)
[2017-11-18] VITALS (16 sets, daily range): BP systolic 104–146; BP diastolic 65–82
[2017-11-18 03:55] LABS: ALBUMIN 2.6 g/dL (3.4-5.0); CALCIUM 9.3 mg/dL (8.5-10.1); MAGNESIUM 2.8 mg/dL (1.8-2.4); PHOSPHORUS* 7.3 mg/dL (2.5-4.9); POTASSIUM 5.2 mmol/L (3.5-5.1)
[2017-11-18 03:56] LABS: CREATININE 6.4 mg/dL (0.6-1.3)
--- NOTE | 2017-11-18 07:43 | NUR ---
PT REMAINS STABLE ON VENTILATOR OFF SEDATION. VSS, O2 SAT HAS REMAINED >92%. PT HAS BEEN TURNED Q2HR THROUGHOUT THE SHIFT. PT RESPONDS APPROPRIATELY TO QUESTIONS AND FOLLOWS COMMANDS. HE HAS DENIED PAIN TONIGHT VIA SHAKING HIS HEAD. COMPLETE BED BATH GIVEN, WOUND CARE PROVIDED AND DRESSINGS CHANGED. TUBE FEED WAS TURNED OFF AT MIDNIGHT FOR WEANING TRIAL SCHEDULED FOR THIS MORNING.
--- NOTE | 2017-11-18 08:37 | NUR ---
PATIENT CARE ASSUMED AT 0700. PATIENT REMAINS ON VENTILATOR WITH NO SEDATION OR RESTRAITS. DOES OPEN EYES TO VERBAL COMMANDS AND FOLLOWS COMMANDS. SHAKES HEAD YES/NO. SQUEEZES NURSES FINGERS UPON COMMAND. PATIENT TO HAVE HEMODIALYSIS THIS MORNING AND WEANING TRIAL 1 HOUR AFTER IT IS COMPLETED. REFER TO VITALS AND ASSESSMENT CHARTING. TRACING A-FIB ON HEAD SILVERMAN. WILL CONTINUE WITH CURRENT PLAN OF CARE.
--- NOTE | 2017-11-18 10:30 | NUR ---
SPOKE WITH SIGNIFICANT OTHER DEEP AT BEDSIDE. SHE SAID SHE HAS BEEN IN CONTACT WITH HIS CHILDREN TO KEEP THEM UPDATED. PT ON DIALYSIS NOW, WILL HAVE WEANING TRIAL AFTER THAT. PT OPENS EYES AND FOLLOWS SOME COMMANDS.
--- NOTE | 2017-11-18 14:19 | NUR ---
WOUND CARE NOTE: CONSULT RECEIVED FOR WOUNDS TO LEFT AND RIGHT BUTTOCKS. PATIENT PRESENTS WITH WHAT APPEARS TO BE RUPTURED BLISTERS. RIGHT BUTTOCK: PARTIAL THICKNESS, RUPTURED BLISTER. RED, MOIST, FRIABLE WOUND BED. APPEARS TO BE HEALING. CLEANSED WITH WOUND CLEANSER, PATTED DRY. APPLIED OPTIFOAM AG AND SECURED WITH TEGADERM. LEFT BUTTOCK: 2 PARTIAL THICKNESS RUPTURED BLISTERS. RED, MOIST, FRIABLE WOUND BED. APPEARS TO BE HEALING. CLEANSED WITH WOUND CLEANSER, PATTED DRY. APPLIED OPTIFOAM AG AND SECURED WITH TEGADERM. PARTIAL THICKNESS BREAKDOWN NOTED TO GLUTEAL CLEFT BETWEEN BILATERAL BUTTOCKS, BELIEVE THIS IS FROM MOISTURE. PATIENT IS LEAKING STOOL AROUND FLEXISEAL. REMOVED SOME OF THE WATER FROM THE BALLOON, TOO FULL. HOPEFULLY THIS WILL ASSIST WITH PREVENTING LEAKAGE. EDUCATED PATIENT'S ON FINDINGS AND THE DRESSINGS USED, COMMUNICATED UNDERSTANDING. RECOMMEND TURN Q2 HOURS-KEEP OFF WOUNDS LIMIT HOB <30 DEGREES IF ABLE PETERSON FUCTION TURNED ON IN BED.
[2017-11-18 16:30] LABS: BE -6.2 mmol/L (-2 to +3); PCO2 31.1 mmHg (35.0-45.0); PO2 90.7 mmHg (75.0-100.0); pH 7.381 (7.340-7.450)
--- NOTE | 2017-11-18 16:42 | NUR ---
TALKED WITH PT.'S NURSE SYDNEY AND PT. IS STILL INAPPROPRIATE FOR O.T. EVAL AT THIS TIME. WILL DISCHARGE PT. FROM O.T. CASELOAD AND REQUESTS NEW O.T. CONSULT WHEN PT. IS APPROPRIATE TO PARTICIPATE IN THERAPY. SYDNEY STATES THAT THE NURSES DO PROM.
[2017-11-19] VITALS (23 sets, daily range): BP systolic 92–169; BP diastolic 58–84
[2017-11-19 04:04] LABS: HEMATOCRIT 23.9 % (42.0-52.0); HEMOGLOBIN 7.8 gm/dL (14.0-18.0); MCH 27.2 pg (26.0-34.0); MCHC 32.5 g/dL (28.0-37.0); MCV 83.7 fL (80.0-100.0); MPV 9.6 fl. (7.2-11.1); RBC 2.85 mil/uL (4.50-6.00); WBC 21.6 thou/uL (4.0-11.0)
[2017-11-19 04:28] LABS: ALBUMIN 2.6 g/dL (3.4-5.0); CALCIUM 8.5 mg/dL (8.5-10.1); TOTAL BILIRUBIN 1.2 mg/dL (<0.1-1.0); TOTAL PROTEIN 5.6 g/dL (6.4-8.2)
[2017-11-19 04:35] LABS: POTASSIUM 6.4 mmol/L (3.5-5.1)
--- NOTE | 2017-11-19 07:42 | NUR ---
ASSUMED CARE OF PT AT 1900, PT SLEEPING AND WEAK. PT VS AND ASSESSMENT AT BASELINE FOR PT. PT RUNNING NS TO ST ON CARDIZEM GTT RUNNING AT 5MLS PER HR. PTS DIALYSIS CATHETER SITE BLEEDING OVERNIGHT DR GOMEZ NOTIFIED REPALCED DRSG AND APPLIED GEL FOAM. PTS K 6.[address] GOMEZ BECAUSE I WAS UNABLE TO GET A HOLD OF NEPHROLOGY ORDERS FOR 1/2 AMP D50 AND 10 UNITS REG INSULIN. WILL MONITOR
--- NOTE | 2017-11-19 08:28 | NUR ---
PATIENT CARE ASSUMED AT 0700. PATIENT REMAINS ON VENTILATOR. TACHYPNEIC. FENTANYL GIVEN PRN, AND PATIENT RESPIRATIONS DECREASED TO HIGH 20S LOW 30S. RESPIRATORY NOTIFIED. ADJUSTED VENTILATOR SETTINGS, PATIENT NOW BREATHING 20 PER MINUTE. CRITICALLY HIGH POTASSIUM REDRAWN THIS MORNING AND RESULTED THE SAME. MESSAGE SENT TO DR GARCIA, AWAITING REPLY. UNABLE TO CONTACT NEPHROLOGY. CONCERNS NOTED PATIENT DIALYZED YESTERDAY, BUT LABS DID NOT TREND DOWN. PATIENT HAS NEW BLEEDING FROM TEMPORARY DIALYSIS CATHETER LINE, NOC NURSE NOTED TO START AT 0000. SAND BAGS IN PLACE TO ATTEMPT TO STOP BLEEDING. WILL NOTIFY ATTENDING. PATIENT TO DIALYZE TODAY. CURRENTLY ON CARDIZEM GTT AT 5 MG/HR. A-FIB NOTED ON RAILROAD CONDUCTOR WITH RATE OF 103. VITALS OTHERWISE STABLE. PLAN FOR TODAY ARE TO MAINTAIN HEMODYNAMIC STABILITY, MAINTAIN AIRWAY AND PROMOTE BREATHING, MONITOR LABS AND COMPLETE HEMODYALYSIS, CONTROL BLOOD SUGARS AND PROMOTE NUTRITION, PROMOTE WOUND HEALING AND MAINTAIN FURTHER SKIN INTEGRITY.
--- NOTE | 2017-11-19 10:30 | NUR ---
PT REMAINS ON VENT, HAS HAD DAILY WEANING TRIALS BUT REMAINS EXTREMELY WEAK. PT MAY NEED TRACH AND PEG. COPY OF ADVANCE DIRECTIVE ON CHART, NAMES HIS S.Danny ADAME HIS DPOA. DOCUMENT CONTAINS NO INFORMATION TO WHAT PT'S WISHES WOULD BE. CASE MGT TO CONTINUE TO FOLLOW.
[2017-11-19 11:14] LABS: APTT 24.2 Seconds (25.0-31.3); INR 1.2; PROTIME 11.6 Seconds (9.20-11.50)
[2017-11-19 16:12] LABS: URINE BILIRUBIN NEGATIVE (Negative); URINE BLOOD 3+ (Negative); URINE CLARITY CLEAR; URINE COLOR YELLOW; URINE GLUCOSE-RANDOM TRACE (Negative); URINE KETONES NEGATIVE (Negative); URINE LEUKOCYTES 1+ (Negative); URINE NITRITE NEGATIVE (Negative); URINE PROTEIN 2+ (Negative); URINE SPECIFIC GRAVITY >= 1.030 (1.005-1.030); URINE UROBILINOGEN 0.2 E.U./dl (0.2-1.0)
[2017-11-19 16:21] LABS: SQUAMOUS 4-10 Moderate /LPF (0-3)
[2017-11-19 16:22] LABS: BACTERIA 1-9 Few /HPF (None Seen); FINE GRANULAR CASTS 0-3 Few /LPF (None Seen); YEAST Present (None Seen)
[2017-11-19 16:23] LABS: URIC ACID CRYSTALS 0-3 Few /LPF (None Seen); URINE WBC 6-15 Few /HPF (0-5)
--- NOTE | 2017-11-19 18:26 | NUR ---
PATIENT TEMP DIALYSIS CATHETER DID NOT WORK FOR DIALYSIS. LEAD MECHANIC MANIPULATED LINE TO ATTEMPT CATHETER FOR ABOUT 1 HOUR, WITH NO SUCCESS. DR ANTUNEZ NOTIFIED. NEW TEMP DIALYSIS CATHETER PLACED IN RIGHT GROIN. SANDBAG TO RIGHT GROIN SITE PATIENT CONTINUES TO BLEED. DIC WORKUP PENDING. PATIENT SPIKED NEW FEVER TODAY. PRN TYLENOL GIVEN PER HOSPITALIST. T-MAX 102.3, CURRENT TEMP 101.2. 1 BAG OF NS INFUSING. UA SENT. LACTIC AND BLOOD CULTURES DRAWN. PHYSICIAN AWARE. NO OTHER NEW CHANGES. DEEP (SIGNIFICANT OTHER) PRESENT THROUGHOUT SHIFT. DENIES FURTHER NEEDS AT THIS TIME.
--- NOTE | 2017-11-19 21:00 | NUR ---
DUE TO CONTINUOUS AND UNCONTROLLED OOZING OF BLOOD FROM RIGHT GROIN DIALYSIS CATHETER SITE PTS REPOSITIONING WILL CONSIST MOSTLY OF SHIFTING HIS WEIGHT BY GENTLY ADJUSTING THE HIPS, SHOULDERS, AND LOWER EXTREMITIES UNTIL HEMOSTASIS CAN BE OBTAINED. ALL EXTREMITIES ELEVATED ON PILLOWS, HEELS FLOATED.
[2017-11-19 21:48] LABS: HEMATOCRIT 17.8 % (42.0-52.0)
[2017-11-19 22:44] LABS: INR 1.2
[2017-11-20] VITALS (37 sets, daily range): BP systolic 75–128; BP diastolic 53–73
--- NOTE | 2017-11-20 02:21 | NUR ---
ASSUMED PT CARE AT 1930. PT HAD R GROIN DIALYSIS CATHETER PLACED THIS EVENING, WHICH HAD CONTINUED TO OOZE BLOOD SINCE IT'S PLACEMENT. SANDBAG WAS IN PLACE OVER THE SITE TO PROVIDE CONTINUOUS CONSISTANT PRESSURE. HOWEVER THE SITE CONTINUED TO OOZE, H&H WAS ORDERED AND CRITICAL RESULTS WERE RECEIVED AT 2148. DR MCKEON WAS NOTIFIED OF RESULTS, ORDER RECEIVED TO T&C AND TRANSFUSE 1 UNIT PRBC'S AND TO DRAW COAG STUDIES. TRANSFUSION CONSENT WAS OBTAINED BY PHONE FROM PTS ADITI, DEEP HOLLY, AND WITNESSED BY RHONDA CHANEY RN. BLOOD TRANSFUSION WAS INITIATED AT 2326. AT 2345 PTS TEMP HAD INCREASED FROM 97.9 TO 99.1, AND TO 101.0 AT MIDNIGHT. ALL OTHER VS REMAINED STABLE AND NO RASH OR OTHER SKIN ALTERATIONS WERE NOTED. BLOOD WAS TURNED OFF UNTIL DR MCKEON COULD BE REACHED. SPOKE TO DR MCKEON AT 0015, ORDER RECEIVED TO GIVE TYLENOL AK, BENADRYL IV, AND TO SLOW TRANSFUSION RATE TO 50ML/HR. COAG LAB RESULTS WERE ALSO COMMUNICATED TO DR MCKEON AT THAT TIME. TRANSFUSION COMPLETED WITHOUT FURTHER CONCERNS. RIGHT GROIN DRESSING HAS BEEN REPLACED TWICE THIS SHIFT THUS FAR. DURING FIRST DRESSING CHANGE, GEL-FOAM WAS PLACED AT THE SITE IN EFFORT TO SLOW BLEEDING. BLEEDING CONTINUED, DIRECT MANUAL PRESSURE BY THIS RN WAS HELD FOR APPROXIMATELY 30 MINUTES WITH LITTLE NOTED DECREASE IN BLEEDING. DURING SECOND DRESSING CHANGE SURGICEL WAS APPLIED AT THE SITE AND SANDBAG WAS APPLIED FOR 1HOUR PRIOR TO RECHECKING SITE. AT THIS TIME THE DRESSING IS C/D/I AND BLEEDING APPEARS TO HAVE STOPPED. GENTLE PALPATION OF THE SURROUNDING TISSUES WAS PERFORMED WITH NO HEMATOMA FELT.
[2017-11-20 03:36] LABS: ABSOLUTE LYMPHOCYTES 0.3 thou/uL (0.8-5.3); ABSOLUTE MONOCYTES 1.1 thou/uL (0.0-1.2); BASOPHILS 0.2 %; LYMPHOCYTES 1.3 %; MCH 27.7 pg (26.0-34.0); MCHC 33.1 g/dL (28.0-37.0); MCV 83.7 fL (80.0-100.0); MONOCYTES 5.3 %; MPV 9.3 fl. (7.2-11.1); NUCLEATED RBCS 0 /100WBC; PLATELET COUNT* 101 thou/uL (150-400); POLYS 93.2 %; RBC 2.87 mil/uL (4.50-6.00); RDW-CV 17.7 % (10.5-14.5); WBC 21.5 thou/uL (4.0-11.0)
[2017-11-20 03:49] LABS: ALBUMIN 2.2 g/dL (3.4-5.0); CALCIUM 7.5 mg/dL (8.5-10.1); CREATININE 7.4 mg/dL (0.6-1.3); MAGNESIUM 2.5 mg/dL (1.8-2.4); PHOSPHORUS* 8.2 mg/dL (2.5-4.9); POTASSIUM 5.9 mmol/L (3.5-5.1); TOTAL BILIRUBIN 1.1 mg/dL (<0.1-1.0); TOTAL PROTEIN 4.8 g/dL (6.4-8.2)
--- NOTE | 2017-11-20 06:33 | NUR ---
PT STABLE ON VENTILATOR. CBC POST-TRANSFUSION SHOWED ADEQUATE IMPROVEMENT IN HGB. RIGHT GROIN SITE WAS MONITORED AFTER SANDBAG WAS REMOVED AND BLEEDING HAD APPEARED TO STOP. AFTER 3 HOURS OF CONSISTENT HOMEOSTASIS PT WAS GIVEN COMPLETE BED BATH, LINEN CHANGE, AND STANDARD REPOSITIONING WITH USE OF WEDGES AND PILLOWS WAS RESUMED. DRESSINGS TO BILATERAL BUTTOCKS WERE ALSO CHANGED DURING BATH. VSS THOUGH PT REMAINS FEBRILE AT 100.7.
--- NOTE | 2017-11-20 08:36 | NUR ---
I ASSUMED CARE OF THE PATIENT AT 0700. HE IS RESTING, BUT NOT FULLY SEDATED. HE CAN BE AROUSED. BLOOD PRESSURE IS SOFT AND AN ORDER WAS MADE FOR A PRESSOR IF NEEDED. PATIENT IS GETTING 4 HOURS OF DIALYSIS NOW AND CT WILL TAKE PLACE AFTER. HE IS SLIGHTLY FEBRILE. PATIENT DOES NOT TRACK. BED IS IN LOW LOCKED POSITION AND I AM AT THE BEDSIDE. RECTAL TUBE AND VANN TO D/D. LUNG SOUNDS ARE CLEAR AND DIMINISHED AND BOWEL SOUNDS ARE HYPOACTIVE. TUBE FEED AT 30/HR, DUE TO RESIDUAL ON TEST ANALYST.
--- NOTE | 2017-11-20 10:53 | NUR ---
Nutrition follow up: RECOMMEND CHANGING DIABETISOURCE TO NOVASOURCE RENAL FORMULA @ GOAL RATE 50mL/hr. Pt's Mag, PO4, K+ are elevated, GFR 7, BUN 235, creat 7.4, lipase 3735, BG 145-203, alb 2.2 prealb 23.8. Pt on HD. See RD Reassessment Form for details.
--- NOTE | 2017-11-20 11:18 | NUR ---
PATIENT HAS TOLERATED 3 1/2 HOURS OF DIALYSIS. SHE IS FILTERING, BUT NOT REMOVING FLUIDS RIGHT NOW. LEVOPHED IS KEEPING HIS PRESSURE ABOVE A MAP OF 65. PATIENT HAD A RESIDUAL OF 50 CC, SO FEEDINGS HAVE BEEN TURNED DOWN TO 20 CC/HR. HE IS STILL NONRESPONSIVE AND THE SIGNIFICANT OTHER IS AT THE BEDSIDE. SHE SPOKE WITH DR. GARCIA AND THEY AGREED TO CHANGE THE PATIENT'S CODE STATUS TO NO COMPRESSIONS. NO ADDITIONAL SEDATION HAS BEEN GIVEN. MORNING MEDS WERE GIVEN VIA TUBE AFTER DIALYSIS WAS GREATER THAN 50% COMPLETED. WILL CONTINUE TO MONITOR. I HAVE BEEN AT THE BEDSIDE ALL MORNING.
--- NOTE | 2017-11-20 13:39 | NUR ---
IM IN THE PROCESS OF TRITRATING THE PATIENT BACK DOWN ON THE PRESSOR. HE DID HAVE A SMALL GAG REFLEX DURING ORAL SUCTION, BUT STILL NO PUPILARY RESPONSE. SIGNIGANT OTHER IS STILL AT THE BEDSIDE. PATIENT HAS BEEN TURNED SINCE DIALYSIS IS OVER.
--- NOTE | 2017-11-20 14:17 | NUR ---
BOTH CONTRAST WERE GIVEN VIA TUBE.
--- NOTE | 2017-11-20 18:42 | NUR ---
HOURLY ROUNDING WAS COMPLETED. PATIENT NEEDS WERE MET AND PAIN IS DENIED. CT WAS DONE ON HEAD AND ABDOMEN. MEDS WERE GIVEN AND TOLERATED. DIALYSIS WAS COMPLETED. RIGHT DIALYSIS SHUNT WAS REMOVED FROM THE JUGULAR AND PRESSURE WAS APPLIED. NEW STERILE DRESSING WAS PUT ON TRIPLE LUMAN IJ. VANN AND RECTAL TUBE ARE D/D. VENT SETTINGS WERE THE SAME ALL DAY. PATIENT IMPROVED THROUGHOUT THE DAY AND NO SEDATION MEDS WERE GIVEN. HE NEEDS TO BE DIALIZED BEFORE 1345 D/T THE CONTRAST HE HAD FOR CT. WILL CONTINUE TO MONITOR. PLEASE CALL DEEP IF ANY CHANGES.
[2017-11-21] VITALS (12 sets, daily range): BP systolic 96–133; BP diastolic 48–83
[2017-11-21 05:53] LABS: HEMATOCRIT 22.2 % (42.0-52.0); HEMOGLOBIN 7.3 gm/dL (14.0-18.0); MCH 27.6 pg (26.0-34.0); MCV 83.4 fL (80.0-100.0); MPV 10.3 fl. (7.2-11.1); NUCLEATED RBCS 0 /100WBC; PLATELET COUNT* 85 thou/uL (150-400); RBC 2.66 mil/uL (4.50-6.00); RDW-CV 17.8 % (10.5-14.5); WBC 23.7 thou/uL (4.0-11.0)
[2017-11-21 06:21] LABS: ABSOLUTE LYMPHOCYTES 0.5 thou/uL (0.8-5.3); ABSOLUTE MONOCYTES 0.2 thou/uL (0.0-1.2); ANISOCYTOSIS 1+; PLATELET ESTIMATE DECREASED; POIKILOCYTOSIS 1+
[2017-11-21 06:30] LABS: ALBUMIN 2.1 g/dL (3.4-5.0); CALCIUM 7.6 mg/dL (8.5-10.1); MAGNESIUM 2.3 mg/dL (1.8-2.4); PHOSPHORUS* 10.1 mg/dL (2.5-4.9); POTASSIUM 5.8 mmol/L (3.5-5.1); TOTAL PROTEIN 4.8 g/dL (6.4-8.2)
[2017-11-21 06:31] LABS: CREATININE 6.1 mg/dL (0.6-1.3)
--- NOTE | 2017-11-21 06:32 | NUR ---
MINIMAL PROGRESSION TOWARDS GOALS. ASSESSMENT AND VS OBTAINED, SEE CHARTING. [facility] NURSE PRACTITIONER ON AND TRACING A FIB. PT REMAINS ON VENT WITH CURRENT SETTINGS. LOW OUT PUT OF URINE 50ML. [facility]N NOTIFIED.
--- NOTE | 2017-11-21 10:41 | NUR ---
RECIEVED REPORT FROM LAKESHA ELLIOTT. ASSESSMENT CHARTED. AFEBRILE. SURGERY CALLED FOR TRACH AND GI CALLED FOR PEG TUBE THIS MORNING. PT RECEIVING DIALYSIS CURRENTLY AND HAD TO START LEVO GTT BECAUSE PT IS NOT TOLERATING WELL EXPECTED. WILL CONTINUE TO MONITOR.
--- NOTE | 2017-11-21 14:01 | NUR ---
SPOKE WITH AT LENGTH REGARDING PLAN OF CARE. SHE UNDERSTANDS PT WILL NEED A TRACH AND A PEG, SHE UNDERSTANDS THOSE PROCEDURES AND AGREES TO PROCEED. SHE SAID SOMEONE HAD ALREADY TALKED WITH HER ABOUT LTAC. EXPLAINED WHAT AN LTAC IS AND THE LEVEL OF CARE THEY CAN PROVIDE. DISCUSSED LTAC OPTIONS, SHE SAID SHE WANTED TO DISCUSS WITH HER SON, BUT PROBABLY PREFERRED [facility] IN [place] DUE TO THE LOCATION. SHE AGREES TO REFERRAL BEING SENT TO [facility]. POSSIBLE TRACH AND PEG PLACEMENT FIRST OF THE WEEK, IS AWARE PT WOULD BE READY TO TRANSFER TO LTAC AFTER THAT. CALLED SHAMA AT [facility] [phone] AND LEFT HER MESSAGE TO CALL.
[2017-11-21 15:29] LABS: INR 1.3; PROTIME 12.3 Seconds (9.20-11.50)
--- NOTE | 2017-11-21 15:30 | EKG ---
[place] [address] ELECTROCARDIOGRAM REPORT Name: BRADY OCHOA SR Room: [address] ADM IN [facility]#: [id number] Admission: 11/02/17 Attend Phys: Dino Pires, Discharge: Date of : 44 Report #: [id number] THIS REPORT FOR: //name// [facility] Test Date: 2017-11-21 Test Time: 14:21:11 Pat Name: BRADY OCHOA Department: Room: [address] Gender: M Psychology Department Chair: : 1940 Requested By: Vipin Nichols Order Number: [id number] Etienne MD: Lan Stout Measurements Intervals [place] Rate: 122 P: AL: QRS: 88 QRSD: 93 T: 43 QT: 322 QTc: 459 Interpretive Statements Atrial fibrillation Low voltage, precordial leads Consider right ventricular hypertrophy Compared to ECG 11/10/2017 13:50:04 Low QRS voltage now present Atrial flutter no longer present AV block, advanced (high-grade) no longer present Incomplete right bundle-branch block no longer present Electronically Signed On 11-21-2017 15:30:08 PLANT AND MACHINERY VALUER by Lan Stout [email or web address] <ELECTRONICALLY SIGNED> By: Lan Stout MD, FACC 11/21/17 1530 1421 1421 Lan Stout MD, FAC /EPI
[2017-11-21 15:50] LABS: ALBUMIN 2.2 g/dL (3.4-5.0); CALCIUM 7.9 mg/dL (8.5-10.1); CREATININE 4.8 mg/dL (0.6-1.3); MAGNESIUM 2.2 mg/dL (1.8-2.4); TOTAL BILIRUBIN 1.7 mg/dL (<0.1-1.0)
--- NOTE | 2017-11-21 22:26 | NUR ---
PTS GIRLFRIEND (DPOA) HAS DECIDED TO HAVE MR OCHOA GO COMFORT CARE IN THE MORNING 11/22/16. SHE DOES NOT BELIEVE HE WOULD WANT TO RECEIVE A TRACH OR PEG TUBE TO PROLONG HIS LIFE ON THE VENT. SHE DOES NOT HAVE THE RESOURCES TO CARE FOR HIM AT HOME AND STATED THE PT DOES NOT WANT TO LIVE IN A LONG-TERM. THE PT IS NOT ADVANCING IN HIS MEDICAL CARE OR CONDITION AND THE DPOA BELIEVES THAT THE PT WOULD RATHER PASS WITH [facility]ITY.
[2017-11-22] VITALS (12 sets, daily range): BP systolic 93–121; BP diastolic 53–76
[2017-11-22 04:42] LABS: BE -1.4 mmol/L (-2 to +3); HCO3 21.6 mmol/L (22.0-26.0); PCO2 29.1 mmHg (35.0-45.0); PO2 107.7 mmHg (75.0-100.0); pH 7.488 (7.340-7.450)
[2017-11-22 06:50] LABS: CREATININE 5.7 mg/dL (0.6-1.3); MAGNESIUM 2.4 mg/dL (1.8-2.4); PHOSPHORUS* 10.2 mg/dL (2.5-4.9)
[2017-11-22 10:44] LABS: MCH 27.9 pg (26.0-34.0); MCHC 32.9 g/dL (28.0-37.0); MCV 84.8 fL (80.0-100.0); MPV 10.3 fl. (7.2-11.1); RBC 2.36 mil/uL (4.50-6.00); RDW-CV 17.7 % (10.5-14.5); WBC 17.9 thou/uL (4.0-11.0)
--- NOTE | 2017-11-22 10:46 | NUR ---
Spoke with Flora Conde RN about Dr. Ospina's consult. He was called by Jeannine QUINTANILLA. He is aware of the consult and will be by to see the patient.
--- NOTE | 2017-11-22 10:55 | NUR ---
RECEIVED REPORT FROM NIGHT RN. ASSESSMENT CHARTED. AFEBRILE. PT IS TO HAVE A TRACH AND PEG PLACED. SURGERY WAS CALLED ANS GI IS AWARE. FAMILY HAS BEEN INDECISIVE ABOUT COMFORT CARE OR AGGRESSIVE TREATMENT FOR THE PT. PHYSICAN AWARE AND SPOKE WITH FAMILY ABOUT CONCERNS. AT THIS TIME, PLANS FOR TRACH, PEG AND TUNNELED DIALYSIS CATH ARE EXPECTED. WILL CONTINUE TO MONITOR.
[2017-11-22 10:56] LABS: HEMOGLOBIN 6.6 gm/dL (14.0-18.0)
[2017-11-23] VITALS (24 sets, daily range): BP systolic 91–134; BP diastolic 48–78
[2017-11-23 03:21] LABS: ABSOLUTE BASOPHILS 0.1 thou/uL (0.0-0.2); ABSOLUTE LYMPHOCYTES 0.2 thou/uL (0.8-5.3); ABSOLUTE MONOCYTES 0.2 thou/uL (0.0-1.2); ABSOLUTE NEUTROPHILS 14.3 thou/uL (1.6-8.1); BASOPHILS 0.7 %; HEMATOCRIT 24.5 % (42.0-52.0); HEMOGLOBIN 8.1 gm/dL (14.0-18.0); LYMPHOCYTES 1.1 %; MCH 28.1 pg (26.0-34.0); MCV 85.1 fL (80.0-100.0); MONOCYTES 1.3 %; MPV 10.2 fl. (7.2-11.1); NUCLEATED RBCS 0 /100WBC; PLATELET COUNT* 110 thou/uL (150-400); POLYS 96.9 %; RBC 2.87 mil/uL (4.50-6.00); RDW-CV 16.6 % (10.5-14.5); WBC 14.8 thou/uL (4.0-11.0)
[2017-11-23 03:47] LABS: CALCIUM 7.9 mg/dL (8.5-10.1); MAGNESIUM 2.3 mg/dL (1.8-2.4); PHOSPHORUS* 8.2 mg/dL (2.5-4.9); POTASSIUM 4.5 mmol/L (3.5-5.1); TOTAL BILIRUBIN 1.6 mg/dL (<0.1-1.0); TOTAL PROTEIN 5.1 g/dL (6.4-8.2)
[2017-11-23 04:22] LABS: CREATININE 4.4 mg/dL (0.6-1.3)
[2017-11-23 05:57] LABS: PHOSPHORUS* 8.2 mg/dL (2.5-4.9)
--- NOTE | 2017-11-23 06:14 | NUR ---
SLOW PROGRESSION TOWARDS GOALS, OPENS EYES TO VERBAL AND TACTILE STIMULI, VISUAL TRACKING NOTED, ABLE TO ANSWER SIMPLE YES/NO QUESTIONS ACCURATELY, BILAT HANDS GENERALIZED WEAKNESS, MINIMAL ABILITY TO GARAGE HELPER ON COMMAND, NODS HEAD NO WHEN ASKED IF HAVING PAIN, NO CHANGE IN VENTILATOR SETTINGS BY RT DURING NOC, OG TUBE PLACEMENT VERIFIED BY KUB, RE-INITATED NOVASOURCE RENAL BY TUBE FEEDING PUMP VIA OG, STARTED TUBE FEEDING RATE AT 10CC/HOUR TO TITRATION TOLERATED ORDERED TO 30CC/HOUR THIS AM, GASTRIC RESIDUAL =<20 THIS SHIFT, REMAINS AFIB RATE CONTROLLED TRACING SUPERVISOR SEAMING, BED REMAINS IN LOW AND LOCKED POSITION.
--- NOTE | 2017-11-23 10:58 | NUR ---
RECEIVED REPORT FROM LAKESHA MEDINA. ASSESSMENT CHARTED. AFEBRILE. TUBE FEEDINGS INFUSING. PT OFF SEDATION AND FOLLOWS SIMPLE COMMANDS. SPOKE WITH PHYSICAN ABOUT TRACH BEING PLACED AND PHYSICAN IS MAKING PLANS TO TRANSFER PT TO ANOTHER FACILITY OR HAVE A SURGEON AT [facility] A TRACH. STILL AWAITING DECISION. WILL CONTINUE TO MONITOR.
[2017-11-24] VITALS (39 sets, daily range): BP systolic 93–133; BP diastolic 52–73
[2017-11-24 04:26] LABS: CALCIUM 7.3 mg/dL (8.5-10.1); MAGNESIUM 2.4 mg/dL (1.8-2.4); PHOSPHORUS* 8.5 mg/dL (2.5-4.9); POTASSIUM 4.8 mmol/L (3.5-5.1)
[2017-11-24 04:28] LABS: CREATININE 5.4 mg/dL (0.6-1.3)
--- NOTE | 2017-11-24 07:28 | NUR ---
MINIMAL PROGRESSION TOWARDS GOALS, NO CHANGE IN VENTILATOR SETTINGS DURING NOC, CARDIZEM GTT STARTED FOR AFIB RVR HR 140'S, TITRATED CARDIZEM GTT IV VIA INFUSION PUMP TO 15MG MOST OF NOC, DECREASED TO 5MG/HR THIS AM WITH HR 80'S, NOVASOURCE RENAL 30CC/HR VIA OG STOPPED AT MIDNIGHT FOR AM TRACHEOSTOMY, AWAKE WITH EYES OPEN, VISUALLY TRACKING NURSE AT BEDSIDE, NODS HEAD YES AND NO AT TIMES TO SIMPLE QUESTIONS, WEAK GRASP ON COMMAND AT TIMES, FULL BED BATH GIVEN, BERNARDO CARE WITH BARRIER CREAM APPLIED, PICTURE TAKEN WOUNDS BUTTOCKS PER POLICY PLACED IN CHART, DRESSINGS CHANGED.
--- NOTE | 2017-11-24 10:57 | NUR ---
Nutrition follow up: TF on hold for trach and possible PEG. Pt on HD, needing dialysis cath.
--- NOTE | 2017-11-24 11:36 | NUR ---
PT NEEDS TRACH, PEG, AND TUNNELED DIALYSIS CATH. DISCUSSED WITH DR. GARCIA AND NURSING. CALLED AND SPOKE WITH CHRISTINA ABOUT TRANSFERRING PT TO FOR TRACH, PEG, AND TUNNELED DIALYSIS CATH, THEN PT COULD DISCHARGE FROM TO GO TO [facility]. HAS NO ICU BEDS AT THIS TIME, BUT CHRISTINA WILL CALL ME IN A FEW HOURS WITH UPDATE ON BED AVAILABILITY. ALSO SPOKE WITH DR. BURNETTE WHILE HE WAS ROUNDING IN ICU ON ANOTHER PT TO ASK HIM IF HE COULD PLACE THE TRACH. HE LUCASY SPOKE WITH NURSING, R.T. AND DR. GARCIA AND SAID HE WOULD CHECK HIS SURGERY SCHEDULE TO SEE IF HE WOULD BE ABLE TO PLACE TRACH. SPOKE WITH Sienna ADAME TO UPDATE HER ON PLANS. SPOKE WITH SHAMA AT [facility], THEY HAVE ACCEPTED PT AND CAN ACCEPT WHEN READY FOR DISCHARGE.
[2017-11-25] VITALS (12 sets, daily range): BP systolic 96–125; BP diastolic 51–69
[2017-11-25 05:23] LABS: ALBUMIN 1.9 g/dL (3.4-5.0); CALCIUM 7.7 mg/dL (8.5-10.1); PHOSPHORUS* 5.6 mg/dL (2.5-4.9); POTASSIUM 4.1 mmol/L (3.5-5.1)
[2017-11-25 05:31] LABS: CREATININE 3.7 mg/dL (0.6-1.3)
--- NOTE | 2017-11-25 06:26 | NUR ---
PATIENT SLOWLY PROGRESSING TOWARDS GOALS. NO ACUTE CHANGES IN BP, RR, O2. PT TOLERATING TUBE FEEDS WELL. TURNED OFF TUBE FEEDS FOR PEG TUBE PLACEMENT TODAY. SPOKE WITH DPOA ABOUT PLAN OF CARE VOICED UNDERSTANDING. ORAL CARE AND TURNS GIVEN Q2H. COMPLETE BED BATH GIVEN. REMAINS OLIGURIC. FECAL TUBE IN PLACE. PT IS OFF SEDATION AND PRESSORS. WILL CONTINUE TO MONITOR CLOSELY.
[2017-11-25 06:55] LABS: HEMATOCRIT 21.5 % (42.0-52.0); MCH 28.4 pg (26.0-34.0); MCHC 32.8 g/dL (28.0-37.0); MCV 86.6 fL (80.0-100.0); MPV 9.5 fl. (7.2-11.1); RBC 2.48 mil/uL (4.50-6.00); RDW-CV 17.3 % (10.5-14.5); WBC 8.7 thou/uL (4.0-11.0)
--- NOTE | 2017-11-25 10:57 | NUR ---
Nutrition: TF on hold for PEG placement today, trach tomorrow. on HD. Will follow up tomorrow.
[2017-11-25 19:10] LABS: HEMATOCRIT 21.9 % (42.0-52.0); HEMOGLOBIN 7.3 gm/dL (14.0-18.0)
--- NOTE | 2017-11-25 19:48 | NUR ---
PT ASSESSMENT CHARTED. VSS. 1 UNIT OF PRBC GIVEN. TUBE FEEDING ON HOLD ALL DAY FOR PEG TUBE PLACEMENT. PT HAD A 20 BEAT RUN OF VTACH AT 1230 PM. THIS INFORMATION WAS REPORTED TO GI DOCTOR AND HE GAVE ORDERS FOR A CARDIAC CONSULT TO CLEAR FOR SURGERY. DR. BURNETTE HAS BEEN UPDATED WITH THIS INFORMATION THE TRACH PLACEMENT IS SCHEDULED FOR TOMORROW. TUNNELED DIALYSIS CATHETER PLACED THIS MORNING. PT REPORTED ON AND OFF THAT HE WAS IN PAIN BY NODDING. ORDER RECEIVED FOR PRN PAIN MEDICATION. HAS BEEN UPDATED ON CURRENT SITUATION AND PLAN.
[2017-11-26] VITALS (18 sets, daily range): BP systolic 96–160; BP diastolic 55–89
[2017-11-26 04:14] LABS: ALBUMIN 1.7 g/dL (3.4-5.0); CALCIUM 7.6 mg/dL (8.5-10.1); CREATININE 4.6 mg/dL (0.6-1.3); PHOSPHORUS* 7.9 mg/dL (2.5-4.9); POTASSIUM 4.7 mmol/L (3.5-5.1)
[2017-11-26 06:50] LABS: HEMATOCRIT 22.2 % (42.0-52.0); HEMOGLOBIN 7.3 gm/dL (14.0-18.0); MCH 28.9 pg (26.0-34.0); MCHC 32.9 g/dL (28.0-37.0); MCV 87.7 fL (80.0-100.0); MPV 9.5 fl. (7.2-11.1); RBC 2.53 mil/uL (4.50-6.00); WBC 6.7 thou/uL (4.0-11.0)
--- NOTE | 2017-11-26 06:52 | NUR ---
PROGRESSING TOWARD GOALS. VSS. BLOOD SUGARS HAVE REMAINED LOW NORMAL. TUBE FEED CURRENTLY ON HOLD FOR POSSIBLE PLACEMENT OF TRACH AND PEG TUBE TODAY. COMPLETE BED BATH GIVEN. DRESSINGS TO BILATERAL BUTTOCKS CHANGED AND WOUND CARE PROVIDED. PT UNSEDATED, ALERT AND INTERACTIVE, SHAKES/NODS HEAD WHEN ASKED YES/NO QUESTIONS. DURING LINEN CHANGE WHEN PULLING PT OVER WITH DRAW SHEET, PT MADE EFFORT TO MOVE HIS UPPER BODY TO ASSIST. PT APPEARS TO BE AT LEAST SOMEWHAT ORIENTED ALTHOUGH THIS IS DIFFICULT TO DETERMINE HE REMAINS VENTILATOR DEPENDENT AT THIS TIME.
--- NOTE | 2017-11-26 10:30 | NUR ---
PT HAD TUNNELED DIALYSIS CATH PLACED YESTERDAY, TO GET TRACH AND PEG TODAY. SPOKE WITH Sienna ADAME AT BEDSIDE, SHE HAS NO QUESTIONS ABOUT PLANS FOR THE DAY. SHE IS AWARE THAT PT HAS BEEN ACCEPTED AT [facility], AND COULD BE READY TO TRANSFER SOON TOMORROW. SHAMA HERE FROM [facility] TO VISIT WITH DEEP ALSO.
--- NOTE | 2017-11-26 14:28 | NUR ---
PATIENT CARE ASSUMED AT 0700. PATIENT REMAINS VENTED AND SEDATED. CARDIOLOGY NEEDED THIS AM TO CLEAR PATIENT FOR SURGERY. DR IGNACIO SAW PATIENT AND VOICED THAT IT IS OKAY FOR SURGERY. THROUGHOUT SHIFT, PATIENT HR INCREASING 5 DOSES OF CARVEDILOL HAD BEEN HELD. BLOOD PRESSURES REMAIN SYSTOLIC 90S AND DIASTOLIC 50S. DR IGNACIO NOTIFIED. ORDERS FOR CARDIZEM TO BE GIVEN WITH 1L NS BOLUS. PATIENT DIALYZED PRIOR TO SURGERY, BUT WHOLE TREATMENT UNABLE TO BE FINISHED PRIOR TO SURGERY. PATIENT CENTRAL LINE NOTED TO HAVE NO SUTURES THIS AM. PHYSICIAN NOTIFIED. WORKING ON SOLUTION. PATIENT CURRENTLY OFF THE UNIT TO HAVE TRACHEOSTOMY PLACED, PEG TO BE PLACED LATER. CONSENTS COMPLETED BY DEEP, SIGNIFICANT OTHER AND DPOA. DENIES FURTHER NEEDS AT THIS TIME. WILL CONTINUE WITH PLAN OF CARE.
--- NOTE | 2017-11-26 15:09 | NUR ---
PATIENT RETURNED FROM OR HAVING TRACHEOSTOMY PLACED AT 1435. VITALS WNL. SIZE [address] SOME FRESH BLOOD PRESENT, BUT CONTAINED UNDER TRANSPARENT DRESSING. PATIENT VITALS WNL, WITH EXCEPTION OF TEMP NOW 96.3. MULTIPLE WARM BLANKETS PLACED ON PATIENT.
--- NOTE | 2017-11-26 18:25 | NUR ---
PATIENT SOMEWHAT PROGRESSING TOWARDS GOALS. TRACH PLACED TODAY. VITALS HAVE REMAINED WNL SINCE, REFER TO DOCUMENTATION. RESTING COMFORTABLY WITH MINIMAL COUGHING. PEG TUBE WILL NOT BE PLACED TODAY, GI SURGEON HAD EMERGENT ADD ONS TO SURGERY SCHEDULE PER PHYSICIAN. DIALYSIS PARTIALLY COMPLETED TODAY, BUT HAD TO BE STOPPED EARLY FOR SURGERY. PRESENT THROUGHOUT SHIFT, DENIED FURTHER CONCERNS.
[2017-11-27] VITALS (18 sets, daily range): BP systolic 93–145; BP diastolic 58–84
--- NOTE | 2017-11-27 04:35 | NUR ---
SLOW PROGRESSION TOWARDS GOALS, REMAINS AWAKE AND ALERT MOST OF NOC, NODS HEAD YES/NO TO SIMPLE QUESTIONS, APPEARS TO BE WATCHING TV, NODS HEAD NO WHEN ASKED IF HAVING PAIN OR DISCOMFORT, AFIB RATE CONTROLLED PET CAREGIVER, WEANING TRIAL BY RT AT THIS TIME, NPO FOR PEG TUBE PLACEMENT THIS AM. HYPOGLYCEMIC X1 49, 0.5 AMP D50 ADMINISTERED AND EFFECTIVE.
[2017-11-27 04:45] LABS: BE 2.2 mmol/L (-2 to +3); HCO3 25.6 mmol/L (22.0-26.0); PCO2 34.7 mmHg (35.0-45.0); PO2 91.8 mmHg (75.0-100.0); pH 7.485 (7.340-7.450)
[2017-11-27 05:34] LABS: HEMATOCRIT 22.8 % (42.0-52.0); HEMOGLOBIN 7.6 gm/dL (14.0-18.0); MCH 29.2 pg (26.0-34.0); MCHC 33.5 g/dL (28.0-37.0); MCV 87.1 fL (80.0-100.0); MPV 9.3 fl. (7.2-11.1); RBC 2.61 mil/uL (4.50-6.00); RDW-CV 15.8 % (10.5-14.5); WBC 8.5 thou/uL (4.0-11.0)
--- NOTE | 2017-11-27 05:40 | NUR ---
FSBS READING LOX2 CONSECUTIVE RESULTS, GLUCOSE LAB DRAW OBTAINED FROM CENTRAL LINE STAT PER PROTOCOL, 0.5 AMP D50 IVP GIVEN, FSBS RECHECKED POST 15MIN GLOCOSE ADMINISTRATION, NEW RESULT READING 82.
[2017-11-27 05:46] LABS: ALBUMIN 1.9 g/dL (3.4-5.0); CALCIUM 7.5 mg/dL (8.5-10.1); CREATININE 3.7 mg/dL (0.6-1.3); POTASSIUM 4.2 mmol/L (3.5-5.1); TOTAL PROTEIN 5.4 g/dL (6.4-8.2)
--- NOTE | 2017-11-27 19:00 | NUR ---
PT DID WELL THROUGH SHIFT. PT TOLERATED PEG PLACEMENT WELL. DID NOT WANT PT TRANSPORTED TO ANOTHER FACILITY DUE TO ROAD CONDITIONS. F/C PATNET FOR 150 ML OF ANAND URINE. PT REMANS ON DEXTROSE INDUCED FLUIDS WITH BLOOD GLUCOSE REMAINING IN NORMAL RANGE.PT REMIAINS FOLLOWING COMMANDS AND NODDING HEAD APPROPIATLEY. PT IS PROGRESSING TOWARDS DISCHARGE GOALS.
[2017-11-28] VITALS (11 sets, daily range): BP systolic 100–128; BP diastolic 57–84
[2017-11-28 04:36] LABS: HEMATOCRIT 20.5 % (42.0-52.0); MCH 28.9 pg (26.0-34.0); MCHC 33.3 g/dL (28.0-37.0); MCV 86.8 fL (80.0-100.0); MPV 8.7 fl. (7.2-11.1); NUCLEATED RBCS 0 /100WBC; PLATELET COUNT* 128 thou/uL (150-400); RBC 2.36 mil/uL (4.50-6.00); RDW-CV 15.9 % (10.5-14.5); WBC 6.3 thou/uL (4.0-11.0)
[2017-11-28 05:11] LABS: ALBUMIN 1.7 g/dL (3.4-5.0); CALCIUM 7.4 mg/dL (8.5-10.1); CREATININE 4.3 mg/dL (0.6-1.3); POTASSIUM 4.2 mmol/L (3.5-5.1); TOTAL BILIRUBIN 0.8 mg/dL (<0.1-1.0)
[2017-11-28 05:33] LABS: HEMOGLOBIN 6.8 gm/dL (14.0-18.0)
[2017-11-28 06:23] LABS: ESR (SEDRATE) 30 mm/hr (0-20)
--- NOTE | 2017-11-28 06:40 | NUR ---
PROGRESSING TOWARDS GOALS, REMAINS ALERT WITH EYES OPEN, NODS HEAD APPEARS APPROPRIATELY TO YES/NO QUESTIONS, FOLLOWING SIMPLE COMMANDS SUCH GRIPPING HAND AND MOVING BILAT FEET, CHANGED 8 SHILEY INNER TRACH CANNULA, GRIMACING AND NODS HEAD YES FOR PAIN WHEN PROVIDING ANY TYPE OF TRACHEOSTOMY CARE, PREMEDICATED WITH HYDROCODONE 5/325MG PER PEG TUBE X1 PRIOR TO CHANGING INNER TRACHEOSTOMY CANNULA AND CLEANING TRACH SITE, HBG 6.8 THIS AM, PER DR GARCIA WILL RECEIVE ONE UNIT PRBC, AWAITING PRBC TO BE READY FOR USE FROM LAB, PT APPEARS TO BE WATCHING TV DURING SHIFT. ASSISTED WITH CHANGING TV CHANNALS PRN FOR DIVERSIONAL ACTIVITY. NO CHANGE IN VENTILATOR SETTINGS DURING NOC BY RT. FULL BATH AND LINEN CHANGE PROVIDED. DRESSINGS TO COCCYX REMAINN C/D/I
[2017-11-28 06:53] LABS: ABSOLUTE EOSINOPHILS 0.1 thou/uL (0.0-0.7); ABSOLUTE LYMPHOCYTES 0.1 thou/uL (0.8-5.3); ABSOLUTE MONOCYTES 0.2 thou/uL (0.0-1.2)
[2017-11-28 06:54] LABS: PLATELET ESTIMATE ADEQUATE; POLYCHROMASIA 1+
--- NOTE | 2017-11-28 11:00 | NUR ---
SPOKE WITH SHAMA AT [facility], THEY CAN ACCEPT PT TODAY. FAXED HER UPDATED PROGRESS NOTES AND LABS. DR. GARCIA NOTIFIED THAT [facility] CAN ACCEPT TODAY.
--- NOTE | 2017-11-28 11:31 | OP ---
[facility] [address] [place] [address] OPERATIVE REPORT Name: BRADY OCHOA SR Room: [address] IN .R.#: [id number] Admission: 11/02/17 Attend Phys: Dino Pires, Discharge: Date of : 44 Report #: [id number] THIS REPORT FOR: //name// CC: Sami Salgado DATE OF SERVICE: 11/26/2017 PREOPERATIVE DIAGNOSIS: Vent-dependent respiratory failure. POSTOPERATIVE DIAGNOSIS: Vent-dependent respiratory failure. PROCEDURE: Open tracheostomy. SURGEON: 1. Janet Shin M.D. - primary. 2. Juanita Agosto D.O. MAJOR GIFTS MANAGER: Reece Alvarez D.O. ESTIMATED BLOOD LOSS: 10 mL. COMPLICATIONS: None. FINDINGS: Excellent return of CO2, oxygenation and pressures following tracheostomy placement. ANESTHESIA: GET. DESCRIPTION OF PROCEDURE: Fully informed consent was obtained preoperatively with the patient's including full discussion of risks, benefits and alternatives. The patient's was present who understood risks of bleeding, infection, reoperation to trach, dislodgement, hypoxia potentially with end-organ damage including neurologic dysfunction, pneumothorax and catastrophic complications up to including cardiopulmonary failure and . The patient's understood and wished for him to proceed. He was taken to the operating room, prepped and draped in standard sterile fashion. He, of course, already had an ET tube in place. A timeout was performed with all in agreement. He was positioned with towel roll behind his head. We prepped and draped in standard sterile fashion and began with a vertical tracheostomy incision from the cricoid cartilage just above the sterile notch dissected down through subcutaneous tissue and platysma coming upon the strap muscles. These were in avascular midline. Mild bleeding encountered was controlled easily with cautery. Thyroid was encountered. This was scored and then stitches of 0 Vicryl placed on either side to ligate securely [place] [address] OPERATIVE REPORT Name: BRADY OCHOA SR Room: [address] IN ..#: [id number] Admission: 11/02/17 Attend Phys: Dino Pires, Discharge: Date of : 44 Report #: [id number] electrocautery. These were pulled laterally to separate them and now the trach hook was used to elevate the trachea coming down to the second and third interspace. After prepping our 8 Shiley tracheostomy, a pablito was made in intertracheal cartilage with the scalpel and the scissors was used to extend through the third ring bilaterally. Stitches were placed with 0 Prolene on either side and Stay sutures and an additional stitch to make a flap from the lower tracheal cartilage to the skin. Next, the ET tube was slowly pulled back until it was just superior to the opening in the tracheostomy. The 8 Shiley was advanced. Initially, there was a false passage as there was no returned CO2 and increased resistance; however, the patient's sats remained high throughout this. It was then, however, subsequently replaced into the trache with return of CO2, low resistance and excellent oxygenation as well as visual conformation was placed within the trachea. Following this, skin was closed with the 0 Prolene inferior superior to the tracheostomy. The tracheostomy was secured to the skin at 4 points with 0 silk and the tracheal neck band placed securely. We inspected closely. There was no significant bleeding. Sponge, needle, instrument counts were correct at the end of the case. The patient tolerated well. <ELECTRONICALLY SIGNED> By: Janet Shin MD 11/28/17 1131 1444 1529Darcy Russel Shin MD /nt
--- NOTE | 2017-11-28 12:33 | NUR ---
CALLED [facility] WITH UPDATE THAT PT WAS BEING TRANSFERRED TO [facility] IN [place]
--- NOTE | 2017-11-28 14:29 | NUR ---
DISCHARGE ORDERS FAXED TO [facility] [phone]. NURSING TO CALL REPORT TO [phone]. AMBULANCE FORM FAXED, NURSING TO CALL AMBULANCE WHEN PT IS READY TO GO [phone]. SPOKE WITH SHAMA TO NOTIFY HER THAT [facility] DOESN'T DRIVE AFTER DARK SO WON'T BE COMING OVER WITH PT. SHE SAID SHE WOULD CALL DEEP AND GIVE HER ALL THE PHONE NUMBERS SHE NEEDED TO REACH THE NURSING STATION, ETC. IT IS OKAY THAT SHE COMES IN TOMORROW TO SIGN PAPERWORK. PLAN IS TO TRANSFER TO LTAC AFTER OFF DIALYSIS, LEAVING AROUND 6:00.
[2017-11-28] MEDS ORDERED: FEVERALL650 MG RECTAL (16:00)
[2017-11-28] MEDS ORDERED: ACETYLCYST200 MG/1 M INH (16:02)
[2017-11-28] MEDS ORDERED: ALBUTEROL2.5 MG/31 INH (16:04)
[2017-11-28] MEDS ORDERED: BISACODYL SUPP10 MG RECTAL (16:04)
[2017-11-28] MEDS ORDERED: BROVANA15 MCG/2 M INH (16:06)
[2017-11-28] MEDS ORDERED: CARDIZEM60 MG PER TUBE (16:07)
[2017-11-28] MEDS ORDERED: CLARITIN10 MG PER TUBE (16:08)
[2017-11-28] MEDS ORDERED: DUONEB 2.5-0.5 M3 ML INH (16:09)
[2017-11-28] MEDS ORDERED: DEXTROSE 10%-W250 ML IV (16:09)
[2017-11-28] MEDS ORDERED: GLUCAGON HCL1 MG IM (16:11)
[2017-11-28] MEDS ORDERED: GLUCOSE4 GM PER TUBE (16:12)
[2017-11-28] MEDS ORDERED: HUMALOG100 UNIT/1 SUBQ (16:14)
[2017-11-28] MEDS ORDERED: HYDROCODONE-AP1 EAC6 PER TUBE (16:16)
[2017-11-28] MEDS ORDERED: LEVEMIR SUBQ (16:17)
[2017-11-28] MEDS ORDERED: LIPITOR40 MG PER TUBE (16:18)
[2017-11-28] MEDS ORDERED: NITROGLYCERIN0.4 MG SUBLING (16:19)
[2017-11-28] MEDS ORDERED: MILK OF MA2400 MG/10 PER TUBE (16:19)
[2017-11-28] MEDS ORDERED: PREDNISONE 20 M20 M1 PER TUBE (16:20)
[2017-11-28] MEDS ORDERED: PHENERGAN12.5 M2 RECTAL (16:21)
[2017-11-28] MEDS ORDERED: PROTONIX40 M1 PER TUBE (16:22)
[2017-11-28] MEDS ORDERED: PULMICORT0.5 MG/2 M INH ×2 (16:23→16:42)
[2017-11-28] MEDS ORDERED: REGLAN 10 MG TA10 MG IV PUSH (16:24)
[2017-11-28] MEDS ORDERED: SENOKOT-S TABL1 EACH PO (16:25)
[2017-11-28] MEDS ORDERED: ZOFRAN ODT4 MG DISSOLVE (16:25)
--- NOTE | 2017-11-28 18:00 | NUR ---
ASSESSMENT AND VS OBTAINED THRTOUGH OUT THE DAY, SEE CHARTING. 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 PT HAD DIALYSIS AND 1.5L PULLED OFF, JUST FINISHED. PT IS TO BE TRANSPORTED TO [facility]. ORDERS FAXED TO THE HOSPITAL. [facility] SHEET FAXED TO THEM.
--- NOTE | 2017-11-28 19:07 | NUR ---
[facility] AT BEDSIDE WITH VENT. PT WAS PLACED OM BED AND HOOKED UP TO THEIR VENT. REPORT WAS GIVEN TO DIRECTIONAL DRILL OPERATOR.
--- NOTE | 2017-12-05 20:10 | EEG ---
[address] [address] EEG STUDY REPORT Name: BRADY OCHOA SR Room: [address] IN M.R.#: [id number] Admission: 11/02/17 Attend Phys: Dino Pires, Discharge: 11/28/17 Date of : 44 Report #: [id number] THIS REPORT FOR: //name// CC: Sami Pires DATE OF SERVICE: 11/12/2017 This patient is being evaluated for encephalopathy. EEG was done by placing the electrodes by standard 10/20 system of electrode placement. Both referential and sequential montages were used for recording. Background activity in this patient's EEG is about 5 Hz and 10-15 microvolts. It is a poorly formed background activity. Photic stimulation is unremarkable. IMPRESSION: This is a significantly abnormal EEG, which typically occur with encephalopathy. However, the finding is nonspecific and can occur in multiple other etiologies and therefore, clinical correlation is recommended. Thank you very much for this referral. <ELECTRONICALLY SIGNED> By: Matt Gonzales MD 12/05/172009 1755 1906Matt Gonzales MD /nt
--- NOTE | 2017-12-05 20:10 | EEG ---
[address] [address] EEG STUDY REPORT Name: BRADY OCHOA SR Room: [address] IN M.R.#: [id number] Admission: 11/02/17 Attend Phys: Dino Pires, Discharge: 11/28/17 Date of : 44 Report #: [id number] THIS REPORT FOR: //name// CC: Sami Pires DATE OF SERVICE: 11/16/2017 This patient is being evaluated for altered mental status. EEG was done by placing the electrodes by standard 10-20 system of electrode placement. Both referential and sequential montages were used for recording. Background activity in this patient's EEG is about 7 Hz and 10 microvolt. It is a low voltage activity, but frequency is there. Photic stimulation is unremarkable. No active epileptiform activity was noted. IMPRESSION: This patient's electroencephalogram is consistent with encephalopathy. However, finding is nonspecific and can occur in multiple etiologies. However, well-defined cortical activity is present. Thank you very much for this referral. <ELECTRONICALLY SIGNED> By: Matt Gonzales MD 12/05/172009 1449 1611Pelian Gonzales MD /nt
--- NOTE | 2017-12-10 14:35 | OP ---
[address] [address] OPERATIVE REPORT Name: BRADY OCHOA SR Room: [address] IN .#: [id number] Admission: 11/02/17 Attend Phys: iDno Pires, Discharge: 11/28/17 Date of : 44 Report #: [id number] THIS REPORT FOR: //name// CC: Sami Pires DATE OF SERVICE: 11/19/2017 PREOPERATIVE DIAGNOSIS: Renal failure requiring hemodialysis. POSTOPERATIVE DIAGNOSIS: Renal failure requiring hemodialysis. SURGEON: Ar Grimaldo DO. CHIEF SCHOOL FINANCE OFFICER: None. PROCEDURE: 1. Ultrasound-guided access, right common femoral vein. 2. Temporary hemodialysis catheter placement, right common femoral vein. ANESTHESIA: Lidocaine 1%. ESTIMATED BLOOD LOSS: Minimal. SPECIMEN: None. COMPLICATIONS: None. CONDITION: Stable. DISPOSITION: Remained in ICU bed. INDICATIONS FOR THE PROCEDURE AND CONSENT: The patient is a 77-year-old male with renal failure. He has been critically ill for some time. He has had multiple temporary hemodialysis catheters placed, which each have issues of clotting. Currently right IJ temporary hemodialysis catheter is not functional and a new line is requested. Separate informed consent was obtained from the patient's family for a new temporary hemodialysis catheter placement. Risks and benefits were discussed with them and the procedure performed at the bedside. PROCEDURE IN DETAIL: After work timeout was performed, the patient was placed in supine position with sterile prep and drape of the right groin. Ultrasound was utilized to identify the right common femoral vein. Seldinger technique used to place a Seldinger needle and wire with minimal difficulty. A dilator was advanced over a wire and the 20 cm . Temporary dialysis catheter was advanced over wire. Each port was aspirated and [place] [address] OPERATIVE REPORT Name: BRADY OCHOA SR Room: [address]#: [id number] Admission: 11/02/17 Attend Phys: Dino Pires, Discharge: 11/28/17 Date of : 44 Report #: [id number] locked with heparin saline 1000 units per mL. Clamps were applied and a sterile dressing was applied. The patient tolerated the procedure well. All lap, needle, instrument counts correct. <ELECTRONICALLY SIGNED> By: Ar Grimaldo DO 12/10/17 1435 [id number] [id number] Grimaldo DO /nt
== END 2017-11-28 19:09 | DRG 4 ==
LOC: M.ERS 03:57 → M.2W 05:49 → M.TBA-ER 05:49 → M.ICU 05:49 → M.2W 06:07 → M.ICU 11-03 10:09
PROVIDERS: Internal Medicine; Internal Medicine Critical Care Medicine; Internal Medicine Gastroenterology; Internal Medicine Nephrology; Internal Medicine Pulmonary Disease; Nurse Practitioner Adult Health; Personal Emergency Response Attendant; Specialist; Surgery; ADMIT Family Medicine
DX: A41.9 Sepsis, unspecified organism (principal); J69.0 Pneumonitis due to inhalation of food and vomit; G93.40 Encephalopathy, unspecified; N17.0 Acute kidney failure with tubular necrosis; I21.4 Non-ST elevation (NSTEMI) myocardial infarction; K72.00 Acute and subacute hepatic failure without coma; I46.9 Cardiac arrest, cause unspecified; J96.21 Acute and chronic respiratory failure with hypoxia; J44.1 Chronic obstructive pulmonary disease with (acute) exacerbation; I13.0 Hypertensive heart and chronic kidney disease with heart failure and stage 1 through stage 4 chronic kidney disease, or unspecified chronic kidney disease; E46 Unspecified protein-calorie malnutrition; I48.92 Unspecified atrial flutter; R65.20 Severe sepsis without septic shock; I50.9 Heart failure, unspecified; Z96.653 Presence of artificial knee joint, bilateral; I48.91 Unspecified atrial fibrillation; E11.65 Type 2 diabetes mellitus with hyperglycemia; N18.9 Chronic kidney disease, unspecified; I25.10 Atherosclerotic heart disease of native coronary artery without angina pectoris; E11.22 Type 2 diabetes mellitus with diabetic chronic kidney disease; E66.01 Morbid (severe) obesity due to excess calories; D64.9 Anemia, unspecified; E83.39 Other disorders of phosphorus metabolism; F32.9 Major depressive disorder, single episode, unspecified; Z90.49 Acquired absence of other specified parts of digestive tract; Z95.1 Presence of aortocoronary bypass graft; Z95.5 Presence of coronary angioplasty implant and graft; Z79.82 Long term (current) use of aspirin; Z79.899 Other long term (current) drug therapy; Z88.0 Allergy status to penicillin; Z88.8 Allergy status to other drugs, medicaments and biological substances; Z80.1 Family history of malignant neoplasm of trachea, bronchus and lung; Z82.5 Family history of asthma and other chronic lower respiratory diseases; Z87.891 Personal history of nicotine dependence; Z68.32 Body mass index [BMI] 32.0-32.9, adult; Z79.01 Long term (current) use of anticoagulants